=== PATIENT | female | born 1940 | race Caucasian/White ===

== ENCOUNTER → 2016-09-06 | Outpatient (CLI) | payer MEDICARE, OTHER ==
[~2016-09-06] VITALS: Ht 167.6 cm; Wt 58.5 kg
[~2016-09-06] MED LIST: ATOR10TA PO; ATOR10TA66 PO; DILT180C54 PO; DILT180C67 PO; DILT180T PO; ESCI10TA PO; FLUT9.9S NS; HEParin (CENTRAL IV FLUSH) 500 UNIT/5 ML SYR ONE; MONT10TA21 PO
--- OUTSIDE RECORDS SUMMARY | 2016-09-06 09:11 | XMS REPORT | Continuity of Care Document ---
Author Author [facility] Organization [facility] Address Unknown Phone Unavailable Care Team Providers Care Facility Security Officer Name Role Phone Maya Benavides III PCP [phone] Source Comments Some departments are not documenting in the electronic medical record. If you do not see the information that you expected, contact Release of Information in the Health Information Management department at [phone] for further assistance in locating additional records.[facility] Active Allergies and Adverse Reactions Not on File Current Medications Not on file Active Problems Not on file Social History Tobacco Use Types Packs/Day Years Used Date Never Assessed Plan of Care Health Maintenance Due Date Last Done Comments Physical (Comprehensive) 1947 Exam Pertussis Vaccine 1953 Tetanus Vaccine 1959 Colorectal Cancer 1992 Screening Shingles Vaccine 2002 Osteoporosis Screening 2007 Prevnar/Pneumovax (#1) 2007 Influenza Vaccine 04/18/2016 Breast Cancer Screening 02/05/2018 02/06/2016, 07/01/2014, 06/30/2013 Additional history exists Results from Last 3 Months Not on file
[2016-09-06 09:49] VITALS: BP 130/76
--- NOTE | 2016-09-10 14:41 | Physician Query-Final Dx ---
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 ALECIA LAGOS Sep 10, 2016 14:41 REILLY VALERIO DO Sep 17, 2016 21:03
== END ==
LOC: SDC 09:08
PROVIDERS: ATTEND Internal Medicine
DX: C56.1 Malignant neoplasm of right ovary (principal)
CPT/HCPCS: 36415; 36591; 86304

== ENCOUNTER → 2016-10-21 | Outpatient (CLI) | payer MEDICARE, OTHER ==
[~2016-10-21] VITALS: Ht 167.6 cm; Wt 58.5 kg
[~2016-10-21] MED LIST changes: +CATHETER FLUSH 10 ML SYR IV PRN
--- OUTSIDE RECORDS SUMMARY | 2016-10-21 08:58 | XMS REPORT | Continuity of Care Document ---
Author Author [facility] Organization [facility] Address Unknown Phone Unavailable Care Team Providers Care Travel Counselor Name Role Phone Maya Benavides III PCP [phone] Source Comments Some departments are not documenting in the electronic medical record. If you do not see the information that you expected, contact Release of Information in the Health Information Management department at [phone] for further assistance in locating additional records.[facility] Active Allergies and Adverse Reactions Not on [...]
[2016-10-21 11:43] VITALS: BP 107/69
== END ==
LOC: SDC 08:55
PROVIDERS: ATTEND Internal Medicine
DX: C56.1 Malignant neoplasm of right ovary (principal)
CPT/HCPCS: 36415; 36591; 86304

== ENCOUNTER → 2016-12-02 | Outpatient (CLI) | payer MEDICARE, OTHER ==
[~2016-12-02] VITALS: Ht 167.6 cm; Wt 58.5 kg
[~2016-12-02] MED LIST changes: +HEParin (CENTRAL IV FLUSH) 500 UNIT/5 ML SYR IV PRN
[2016-12-02 09:40] VITALS: BP 111/83
== END ==
LOC: SDC 09:13
PROVIDERS: ATTEND Internal Medicine
DX: C56.1 Malignant neoplasm of right ovary (principal)
CPT/HCPCS: 36415; 36591; 86304

== ENCOUNTER → 2017-01-10 | Outpatient (CLI) | payer MEDICARE, OTHER ==
[~2017-01-10] VITALS: Ht 167.6 cm; Wt 58.5 kg
[~2017-01-10] MED LIST changes: -CATHETER FLUSH 10 ML SYR IV PRN; +HEParin (CENTRAL IV FLUSH) 500 UNIT/5 ML SYR IV ONE; -HEParin (CENTRAL IV FLUSH) 500 UNIT/5 ML SYR IV PRN
[2017-01-10 09:20] VITALS: BP 125/82
== END ==
LOC: SDC 08:59
PROVIDERS: ATTEND Internal Medicine
DX: C56.1 Malignant neoplasm of right ovary (principal)
CPT/HCPCS: 36415; 36591; 86304

== ENCOUNTER → 2017-02-21 | Outpatient (CLI) | payer MEDICARE, OTHER ==
[~2017-02-21] VITALS: Ht 167.6 cm; Wt 58.5 kg
[~2017-02-21] MED LIST changes: -HEParin (CENTRAL IV FLUSH) 500 UNIT/5 ML SYR IV ONE
[2017-02-21 08:45] VITALS: BP 124/87
== END ==
LOC: SDC 08:27
PROVIDERS: ATTEND Internal Medicine
DX: C56.1 Malignant neoplasm of right ovary (principal)
CPT/HCPCS: 36415; 36591; 86304

== ENCOUNTER → 2017-04-04 | Outpatient (CLI) | payer MEDICARE, OTHER ==
[~2017-04-04] VITALS: Ht 167.6 cm; Wt 58.5 kg
[2017-04-04 14:29] VITALS: BP 130/71
== END ==
LOC: SDC 13:12
PROVIDERS: ATTEND Internal Medicine
DX: C56.2 Malignant neoplasm of left ovary (principal)
CPT/HCPCS: 36415; 36591; 86304

== ENCOUNTER 2017-05-03 01:14 | Emergency (ER) | payer MEDICARE, OTHER ==
[~2017-05-03] VITALS: Ht 167.6 cm; Wt 59.0 kg
[~2017-05-03 01:14] MED LIST changes: -HEParin (CENTRAL IV FLUSH) 500 UNIT/5 ML SYR ONE
[2017-05-03] MEDS ORDERED: TETANUS,DIPTH,PERTUSS P/F (BOOSTRIX) 0.5 ML VIAL IM ONE (01:30)
[2017-05-03] MEDS ORDERED: LIDOCAINE 1% INJ 20 ML (XYLOCAINE) VIAL INJ ONE (01:30)
--- NOTE | 2017-05-03 01:31 | ED Fall/Injury ---
General Chief Complaint: Trauma-Non Activation Stated Complaint: FELL- LEFT SIDE HEAD INJURY Source: patient, spouse Exam Limitations: no limitations History of Present Illness Time seen by provider: 01:25 Initial Comments Patient presents to ER by private conveyance with chief complaint of getting up until tonight to bathroom and had a fall landing with her head against either a dresser or more on the left mandaeism. There is a gash there that is been dressed and hemostatic per the patient. She is not sure when she had her last tetanus shot. She says she is having no dysuria or confusion. She did vomit immediately after hitting her head. She is not nauseated now. She had a fall earlier today. 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 She's not had any other constitutional symptoms last few days. Allergies and Home Medications Allergies Coded Allergies: No Known Allergies (Verified Allergy, Unknown, 10/21/16) Home Medications Atorvastatin Calcium 10 Mg Tablet, 10 MG PO DAILY, (Reported) Diltiazem HCl 180 Mg Tab.er.24h, 180 MG PO DAILY, (Reported) Escitalopram Oxalate 10 Mg Tablet, 10 MG PO DAILY, (Reported) Fluticasone Propionate 9.9 Ml [place].susp, 2 SPRAYS NS DAILY, (Reported) Montelukast Sodium 10 Mg Tablet, 10 MG PO DAILY, (Reported) Constitutional: No chills, No diaphoresis, No fever, No malaise Eyes: Denies Blindness, Denies Blurred Vision Ears, Nose, Mouth, Throat: denies ear pain, denies ear discharge, denies nose discharge, denies epistaxis Respiratory: No cough, No short of breath Cardiovascular: No chest pain, No palpitations, No syncope Gastrointestinal: No abdominal pain, No constipation, No nausea Genitourinary: No discharge, No dysuria : No Musculoskeletal: No back pain, No joint pain Skin: No pruritus, No rash, other (laceration left forehead/mandaeism) Psychiatric/Neurological: Denies Headache, Denies Numbness, Denies Paresthesia Past Zeugbmc-Nvbwii-Vuljxb Hx Patient Social History Alcohol Use: Denies Use Recreational Drug Use: No Type Used: Cigarettes Recent Foreign Travel: No Contact w/Someone Who Travel: No Recent Hopitalizations: No Seasonal Allergies Seasonal Allergies: No Physical Exam Vital Signs Vital Sign - Last 12Hours 05/03/17 01:19 Temp 98.1 Pulse 60 Resp 16 B/P (MAP) 142/81 Pulse Ox 98 O2 Delivery Room Air Capillary Refill : General Appearance: WD/WN, no apparent distress HEENT: PERRL/EOMI, normal ENT inspection, TMs normal, pharynx normal Neck: non-tender, full range of motion, supple, normal inspection Cardiovascular: normal peripheral pulses, regular rate, rhythm, no edema Respiratory: lungs clear, normal breath sounds Gastrointestinal: non tender, soft Extremities: normal range of motion, normal inspection, normal capillary refill Neurologic/Psychiatric: alert, normal mood/affect, oriented x 3 Jarad Coma Score Best Eye Response: (4) Open Spontaneously Best Verbal Response: (5) Oriented Best Motor Response: (6) Obeys Commands [place] Total: 15 Laceration Repair : Wound Location: Face (left for head) Wound Length (cm): 2 Wound's Depth, Shape: linear, sub Q Wound Explored: clean Irrigated w/ Saline (ccs): 50 Betadine Prep?: Yes (cleaned with chlorhexidine soap water) Anesthesia: 1% Lidocaine Volume Anesthetic (ccs): 3 Wound Debrided: minimal Suture: Ethlion Suture Size: 5-0 Number of Sutures: 5 Progress Patient's wound was lightly cleaned with chlorhexidine soap water then infiltrated are in a ringlike fashion with 1% lidocaine without epinephrine. When the patient was ascertained to be numb and then copious amounts of chlorhexidine soap water were flushed into the wound irrigated and the wound was then doused in Betadine. Wound was then closed with simple interrupted Ethilon 50 sutures 5. The patient tolerated the procedure well. Progress/Results/Core Measures Results/Orders My Orders Orders - PAULO BOSS Ct Head Wo (05/03/17 01:28) Ua Culture If Indicated (05/03/17 01:28) Dipht,Pertuss(Acell),Tet Adult (Boostrix (05/03/17 01:30) Lidocaine 1% Injection (Xylocaine 1% Inj (05/03/17 01:30) Vital Signs/I&O Vital Sign - Last 12Hours 05/03/17 01:19 Temp 98.1 Pulse 60 Resp 16 B/P (MAP) 142/81 Pulse Ox 98 O2 Delivery Room Air Diagnostic Imaging Diagonstic Imaging: CT Plain Films/CT/US/NM/MRI: head Comments No ICH, tumor, mass effect. Fluid in the left maxillary sinus. No evidence of acute infarct, hemorrhage, mass or edema. No acute osseous abnormality. Probable dermal defect overlying left frontal scalp. Reviewed: Reviewed by Me Departure Impression Impression: Primary Impression: Fall from standing Qualified Codes: W19.XXXA - Unspecified fall, initial encounter Additional Impressions: Laceration of forehead Qualified Codes: S01.81XA - Laceration without foreign body of other part of head, initial encounter Hematoma Disposition: HOME, SELF-CARE Condition: Stable Departure-Patient Inst. Decision time for Depature: 03:11 Referrals: REILLY VALERIO DO (PCP/Family) Primary Care Physician Patient Instructions: Laceration Repair With Stitches (DC) Add. Discharge Instructions: Follow-up with your primary care physician or you may return to the ER in 5-7 days to have the wound is examined and stitches removed. ( to friday. ) If you have any discharge from the wound or increasing redness and pain or fevers or nausea a should return for evaluation either in the ER or to your primary care physician. Keep the wound clean with soap and water and apply a small amount of Vaseline over the skin edges to keep them moist. Keep the wound dressed and do not submerge underwater for the first 3-4 days. All discharge instructions reviewed with patient and/or family. Voiced understanding. Scripts Sulfamethoxazole/Trimethoprim (Bactrim Ds Tablet) 1 Each Tablet 1 EACH PO BID for 5 Days, #10 TAB 0 Refills Prov: PAULO BOSS 05/03/17 Copy Copies To 1: REILLY VALERIO TITUS J May 03, 2017 01:31
[2017-05-03] MEDS ORDERED: SULF1TAB35 PO (03:13)
[2017-05-03 03:29] LABS: BILIRUBIN,URINE NEGATIVE (NEGATIVE); KETONES,URINE NEGATIVE (NEGATIVE); LEUKOCYTE ESTERASE ,URINE 3+ (NEGATIVE); NITRITE,URINE NEGATIVE (NEGATIVE); PH,URINE 6.5 (5-9); PROTEIN,URINE NEGATIVE (NEGATIVE); UROBILINOGEN,URINE NORMAL (NORMAL)
[2017-05-03] MEDS ORDERED: CEPHALEXIN 250 MG (KEFLEX) CAP PO ONE (04:15)
[2017-05-03 04:20] VITALS: BP 142/88
--- NOTE | 2017-05-03 06:26 | Diagnostic Imaging Report ---
PROCEDURE: CT head without contrast. TECHNIQUE: Multiple contiguous axial images were obtained through the brain without the use of intravenous contrast. INDICATION: Fall out of bed. Comparison: None available. Findings: No hyperdense hemorrhage or space-occupying mass. No hydrocephalus or midline shift. Symmetric prominence of the ventricles and cortical sulci is compatible with age-appropriate atrophy. No isolated lobar atrophy. No territorial loss of ceballos-white matter differentiation to indicate acute/subacute infarct. Minimal periventricular white matter hypoattenuation is likely due to chronic microvascular ischemic disease. The mastoid air cells are clear. Left maxillary sinus mucosal retention cyst. No focal osseous abnormality of the calvarium. Left frontal scalp laceration. Impression: No acute intracranial process or skull fracture. Dictated by: Dictated on workstation # [id number]
== END 2017-05-03 04:20 | disposition home or self-care (01) ==
LOC: EDUNIT# 01:14 → ER 01:16
DX: Z04.3 Encounter for examination and observation following other accident (principal)
CPT/HCPCS: 70450; 81000; 87088; 90471; 90715; 99284

== ENCOUNTER 2017-05-09 08:01 | Emergency (ER) | payer MEDICARE, OTHER ==
[~2017-05-09] VITALS: Ht 170.2 cm; Wt 61.2 kg
[~2017-05-09 08:01] MED LIST changes: +SULF1TAB35 PO
[2017-05-09 08:18] VITALS: BP 128/76
== END 2017-05-09 08:18 | disposition home or self-care (01) ==
LOC: EDUNIT# 08:01 → ER 08:03
DX: Z48.02 Encounter for removal of sutures (principal)

== ENCOUNTER → 2017-05-16 | Outpatient (CLI) | payer MEDICARE, OTHER ==
[~2017-05-16] VITALS: Ht 170.2 cm; Wt 61.2 kg
[~2017-05-16] MED LIST changes: +HEParin (CENTRAL IV FLUSH) 500 UNIT/5 ML SYR ONE
[2017-05-16 13:55] LABS: MEAN PLATELET VOLUME 9.3 FL (7.4-10.4); RED BLOOD COUNT 4.16 10^6/uL (4.35-5.85); RED CELL DISTRIBUTION WIDTH 14.9 % (10.0-14.5)
[2017-05-16 14:15] LABS: ANION GAP 8 MMOL/L (5-14); BLOOD UREA NITROGEN 16 MG/DL (7-18); BUN/CREATININE RATIO 19; CARBON DIOXIDE 26 MMOL/L (21-32); CHLORIDE 103 MMOL/L (98-107); CREATININE SERUM 0.86 MG/DL (0.60-1.30); SODIUM 137 MMOL/L (135-145)
[2017-05-16 14:16] LABS: ALANINE AMINOTRANSFERASE 18 U/L (0-55); ALBUMIN 3.8 GM/DL (3.2-4.5); ASPARTATE AMINO TRANSFERASE 21 U/L (5-34); BILIRUBIN,TOTAL 0.2 MG/DL (0.1-1.0); CALCIUM 9.2 MG/DL (8.5-10.1); GFR ESTIMATED > 60; GLUCOSE 96 MG/DL (70-105); TOTAL PROTEIN 6.7 GM/DL (6.4-8.2)
[2017-05-16 14:31] VITALS: BP 110/73
[2017-05-16 14:36] LABS: THYROID STIMULATING HORMONE 1.21 UIU/ML (0.35-4.94)
== END ==
LOC: SDC 13:03
PROVIDERS: ATTEND Internal Medicine
DX: R53.83 Other fatigue; C56.2 Malignant neoplasm of left ovary
CPT/HCPCS: 36415; 36591; 80053; 83540; 84439; 84443; 85027; 86304

== ENCOUNTER → 2017-06-05 | Outpatient (CLI) | payer MEDICARE, OTHER ==
[~2017-06-05] VITALS: Ht 170.2 cm; Wt 61.2 kg
[~2017-06-05] MED LIST changes: -HEParin (CENTRAL IV FLUSH) 500 UNIT/5 ML SYR ONE; +LIDOCAINE 1% INJ 20 ML (XYLOCAINE) VIAL INJ ONE
[2017-06-05 09:50] VITALS: BP 118/68
[2017-06-05 11:12] VITALS: BP 112/70
--- NOTE | 2017-06-05 13:57 | Diagnostic Imaging Report ---
EXAMINATION: Ultrasound-guided biopsy of a breast mass. A metallic clip placed to cynthia biopsy site. INDICATION: Left breast mass. CONSENT: Informed consent was obtained from the patient. The risks, benefits, potential complications and alternatives were reviewed and all questions answered to the patient's satisfaction. FINDINGS: Ultrasound images demonstrate a left breast mass at 2:00 zone. PROCEDURE: After sterile preparation and draping, 1% lidocaine was utilized for local anesthesia. A the biopsy needle was introduced under live ultrasound guidance to the level of the lesion. Good needle position was documented with ultrasound images. 14-gauge biopsy needle was utilized and core biopsies were performed. Multiple samples were obtained and sent to pathology. A metallic 2 mm a coil was placed to cynthia the site of the biopsy. A subsequent mammogram is performed and confirms the proper positioning of the clip. The patient tolerated the procedure well with no immediate complications. IMPRESSION: Successful ultrasound-guided core biopsy of 2:00 left breast mass. Dictated by: Dictated on workstation # [id number]
--- NOTE | 2017-06-05 14:31 | Diagnostic Imaging Report ---
EXAMINATION: Bilateral diagnostic mammogram with tomography evaluation. The current study was also evaluated with a Computer Aided Detection (CAD) system. COMPARISON: 02/06/2016. INDICATION: Palpable lump in the upper outer left breast. FINDINGS: The breasts are composed of extremely dense parenchyma which may decrease mammographic sensitivity. There are scattered benign-appearing calcifications. The area of palpable lump is marked and demonstrates nonspecific slightly increased density focal asymmetry in the upper-outer aspect of the left breast. The area, however, is partially obscured with extremely dense background parenchyma and a definitive mass is not seen. The right breast demonstrates no definite change. IMPRESSION: Extremely dense parenchyma. Focal asymmetry with increased density along the upper outer aspect of the left breast at the palpable area is noted without a definitive underlying mass confirmed. An ultrasound evaluation is pending. ACR BI-RADS Category 0: Incomplete. (Needs additional imaging evaluation). Result letter will be mailed to the patient. Note: At least 10% of breast cancer is not imaged by mammography. Dictated by: Dictated on workstation # [id number]
--- NOTE | 2017-06-05 17:06 | Diagnostic Imaging Report ---
EXAMINATION: US-guided core biopsy-axilla. INDICATION: Left axillary lymphadenopathy. Current history and physical and other medical records are reviewed prior to the procedure. CONSENT: Informed consent was obtained from the patient. The risks, benefits, potential complications and alternatives were reviewed and all questions answered to the patient's satisfaction. The patient's vital signs, cardiac rhythm, and pulse oximetry with observed throughout the procedure by qualified nursing personnel. Sedation/medications: none. FINDINGS: Left axillary lymphadenopathy. PROCEDURE: After maximal sterile barrier technique preparation and draping, 1% lidocaine was utilized for local anesthesia. With the patient in supine position, and via anterior approach, a 14-gauge Bard biopsy needle is introduced into the enlarged left axillary lymph node under live ultrasound guidance. After confirming adequate positioning with saved ultrasound images, multiple 14 gauge core biopsy specimens were obtained. The patient tolerated the procedure well with no immediate complications. IMPRESSION: Successful US-guided core biopsy of enlarged right axillary lymph nodes. Dictated by: Dictated on workstation # [id number]
--- NOTE | 2017-06-05 20:40 | Diagnostic Imaging Report ---
EXAMINATION: Bilateral breast ultrasound. INDICATION: Left breast lump. FINDINGS: The four quadrants and retroareolar region of each breast were scanned. In the left breast, there is a mass centered at the 2:00 zone, 8 cm from the nipple, measuring 2.5 x 1.4 x 3.0 cm with a hypoechoic slightly heterogenous and lobulated appearance. There is mild through transmission. There is no shadowing. There is no definitive internal vascularity. Mild increased vascularity around the periphery of the mass is seen. There are also mildly enlarged lymph nodes in the left axilla. The right breast demonstrates no underlying lesion. IMPRESSION: 1. A 3 cm left breast mass at 2:00 zone. 2. Multiple mildly enlarged left axillary lymph nodes. 3. These are suspicious for breast cancer with lymph node spread. Ultrasound-guided biopsy of the breast mass and the enlarged lymph nodes is recommended. The findings and recommendations were discussed with the patient personally at time of dictation. The patient was kept in the department for a subsequent biopsy. ACR BI-RADS Category 4C: Moderate suspicion of malignancy. Result letter will be mailed to the patient. Note: At least 10% of breast cancer is not imaged by mammography. Dictated by: Dictated on workstation # [id number]
--- NOTE | 2017-06-05 20:46 | Diagnostic Imaging Report ---
EXAMINATION: CC and lateral views of the left breast. INDICATION: Confirmation of metallic marker placement after ultrasound-guided biopsy of upper-outer left breast mass. FINDINGS: A 2 mm coil is seen in a breast mass within the upper-outer aspect of the left breast largely obscured by the adjacent extremely dense parenchyma. IMPRESSION: Satisfactory position of marking metallic coil at the site of upper-outer left breast mass. Pathology results are pending. Dictated by: Dictated on workstation # [id number]
== END ==
LOC: RAD 07:59
PROVIDERS: ATTEND Nurse Practitioner
DX: N63.21 Unspecified lump in the left breast, upper outer quadrant (principal); R59.0 Localized enlarged lymph nodes
CPT/HCPCS: 19083; 19084; 76641; 77066

== ENCOUNTER → 2017-08-05 | Outpatient (CLI) | payer MEDICARE, OTHER ==
[~2017-08-05] VITALS: Ht 170.2 cm; Wt 61.2 kg
[~2017-08-05] MED LIST changes: +HEParin (CENTRAL IV FLUSH) 500 UNIT/5 ML SYR IV ONE; -LIDOCAINE 1% INJ 20 ML (XYLOCAINE) VIAL INJ ONE; +NS IV 1000 ML 1,000 ML IV NR; +NS IV 1000 ML 1,000 ML ONE; +ONDANSETRON 4 MG/2 ML (SDV) Z0FRAN ONE
[2017-08-05] MEDS: ONDANSETRON 4 MG/2 ML (SDV) Z0FRAN IV NR ×2 (13:02→13:04)
[2017-08-05 13:11] VITALS: BP 101/64
[2017-08-05 14:32] VITALS: BP 101/64
== END ==
LOC: SDC 12:41
PROVIDERS: ATTEND Internal Medicine Hematology & Oncology
DX: R11.2 Nausea with vomiting, unspecified (principal); Z92.21 Personal history of antineoplastic chemotherapy
CPT/HCPCS: 96360; 96375

== ENCOUNTER → 2017-08-28 | Outpatient (CLI) | payer MEDICARE, OTHER ==
[~2017-08-28] MED LIST changes: -HEParin (CENTRAL IV FLUSH) 500 UNIT/5 ML SYR IV ONE; -NS IV 1000 ML 1,000 ML IV NR; -NS IV 1000 ML 1,000 ML ONE; -ONDANSETRON 4 MG/2 ML (SDV) Z0FRAN ONE
[2017-08-28 10:58] LABS: BASOPHILS # (AUTO) 0.1 10^3/uL (0.0-0.1); BASOPHILS % (AUTO) 3 % (0-10); EOSINOPHILS # (AUTO) 0.1 10^3/uL (0.0-0.3); EOSINOPHILS % (AUTO) 3 % (0-10); HEMATOCRIT 30 % (35-52); HEMOGLOBIN 10.3 G/DL (11.5-16.0); LYMPHOCYTES # (AUTO) 0.9 X 10^3 (1.0-4.0); LYMPHOCYTES % (AUTO) 37 % (12-44); MEAN CORPUSCULAR HEMOGLOBIN 35 PG (25-34); MEAN CORPUSCULAR HGB CONC 34 G/DL (32-36); MEAN CORPUSCULAR VOLUME 100 FL (80-99); MEAN PLATELET VOLUME 10.4 FL (7.4-10.4); MONOCYTES # (AUTO) 0.2 X 10^3 (0.0-1.0); MONOCYTES % (AUTO) 10 % (0-12); NEUTROPHILS # (AUTO) 1.1 X 10^3 (1.8-7.8); NEUTROPHILS % (AUTO) 48 % (42-75); PLATELET COUNT 75 10^3/uL (130-400); RED BLOOD COUNT 2.98 10^6/uL (4.35-5.85); RED CELL DISTRIBUTION WIDTH 17.4 % (10.0-14.5); WHITE BLOOD COUNT 2.4 10^3/uL (4.3-11.0)
[2017-08-28 11:34] LABS: ALANINE AMINOTRANSFERASE 28 U/L (0-55); ALBUMIN 3.6 GM/DL (3.2-4.5); ALKALINE PHOSPHATASE 53 U/L (40-136); BILIRUBIN,TOTAL 0.8 MG/DL (0.1-1.0); BUN/CREATININE RATIO 13; CALCIUM 8.8 MG/DL (8.5-10.1); CARBON DIOXIDE 23 MMOL/L (21-32); CHLORIDE 99 MMOL/L (98-107); CREATININE SERUM 0.71 MG/DL (0.60-1.30); GFR ESTIMATED > 60; GLUCOSE 88 MG/DL (70-105); POTASSIUM 3.7 MMOL/L (3.6-5.0); SODIUM 131 MMOL/L (135-145); TOTAL PROTEIN 6.5 GM/DL (6.4-8.2)
== END ==
LOC: LAB 10:40
PROVIDERS: ATTEND Internal Medicine
DX: J18.9 Pneumonia, unspecified organism (principal); E86.0 Dehydration
CPT/HCPCS: 36415; 80053; 85025; 87804

== ENCOUNTER → 2017-09-04 | Outpatient (CLI) | payer MEDICARE, OTHER ==
--- NOTE | 2017-09-04 15:29 | Diagnostic Imaging Report ---
INDICATION: Right lower extremity edema. TIME OF EXAM: 3:37 PM COMPARISON: Correlation is made with prior study from 01/08/2010. The heart size is stable. Right chest wall port has been placed since prior study. The tip is in the lower SVC. No pneumothorax is seen. Lungs are clear. No effusion is identified. IMPRESSION: No acute cardiopulmonary process is detected. Dictated by: Dictated on workstation # [id number]
--- NOTE | 2017-09-04 15:46 | Diagnostic Imaging Report ---
PROCEDURE: US right lower extremity venous. TECHNIQUE: Multiple real-time grayscale images were obtained over the right lower extremity in various projections. Additional duplex Doppler and color Doppler images were also obtained. DATE: September 04, 2017. INDICATION: 77-year-old female, right lower extremity edema. COMPARISON: None. FINDINGS: The right common femoral vein, right superficial femoral vein, and right popliteal vein are all compressible with normal flow and response to augmentation. The right posterior tibial and peroneal veins are patent. IMPRESSION: Negative for right lower extremity deep venous thrombosis. Dictated by: Dictated on workstation # [id number]
== END ==
LOC: RAD 14:58
PROVIDERS: ATTEND Internal Medicine
DX: R60.0 Localized edema (principal)
CPT/HCPCS: 71046

== ENCOUNTER 2017-09-22 09:26 | Outpatient (RCR) | payer MEDICARE, OTHER ==
[2017-08-26 09:30] VITALS: BP 124/81
[2017-08-27 09:45] VITALS: BP 127/79
[~2017-09-22] VITALS: Ht 170.2 cm; Wt 61.2 kg
[~2017-09-22 09:26] MED LIST changes: +NS IV 1000 ML 1,000 ML IV SCH; +NS IV 1000 ML 1,000 ML ONE; +ONDANSETRON 4 MG/2 ML (SDV) Z0FRAN IV NR; +ONDANSETRON 4 MG/2 ML (SDV) Z0FRAN IVP ONE; +ONDANSETRON 4 MG/2 ML (SDV) Z0FRAN ONE
[2017-09-22] MEDS ORDERED: NS IV 1000 ML 1,000 ML ONE (10:10)
[2017-09-22] MEDS ORDERED: ONDANSETRON 4 MG/2 ML (SDV) Z0FRAN ONE (10:24)
== END 2017-09-22 11:15 | disposition home or self-care (01) ==
LOC: SDC 09:26
PROVIDERS: ATTEND Physician Assistant
DX: R11.2 Nausea with vomiting, unspecified (principal); T45.1X5A Adverse effect of antineoplastic and immunosuppressive drugs, initial encounter
CPT/HCPCS: 96360; 96375

== ENCOUNTER 2017-09-22 09:30 | Outpatient (CLI) | payer MEDICARE, OTHER ==
[~2017-09-22 09:30] MED LIST changes: -NS IV 1000 ML 1,000 ML IV SCH; -NS IV 1000 ML 1,000 ML ONE; -ONDANSETRON 4 MG/2 ML (SDV) Z0FRAN IV NR; -ONDANSETRON 4 MG/2 ML (SDV) Z0FRAN IVP ONE; -ONDANSETRON 4 MG/2 ML (SDV) Z0FRAN ONE
[2017-09-22 09:55] LABS: BILIRUBIN,URINE NEGATIVE (NEGATIVE); CLARITY,URINE VERY CLOUDY; COLOR,URINE YELLOW; GLUCOSE, URINE (UA) NEGATIVE (NEGATIVE); KETONES,URINE NEGATIVE (NEGATIVE); LEUKOCYTE ESTERASE ,URINE 3+ (NEGATIVE); NITRITE,URINE NEGATIVE (NEGATIVE); PH,URINE 6 (5-9); PROTEIN,URINE 2+ (NEGATIVE); UROBILINOGEN,URINE NORMAL (NORMAL)
[2017-09-22 10:14] LABS: BACTERIA,URINE LARGE /HPF; WBC,URINE TNTC /HPF
== END 2017-09-22 13:33 ==
LOC: SDC 09:30
PROVIDERS: ATTEND Internal Medicine Hematology & Oncology
DX: R30.0 Dysuria (principal)
CPT/HCPCS: 81000; 87088; 87186

== ENCOUNTER 2017-09-26 11:15 | Outpatient (RCR) | payer MEDICARE, OTHER ==
[2017-07-14 09:00] VITALS: BP 120/78
[2017-07-14] MEDS: PEGFILGRASTIM 6 MG/0.6ML (NEULASTA) SDC SC SCH (09:28)
[2017-08-04] MEDS: PEGFILGRASTIM 6 MG/0.6ML (NEULASTA) SDC SC SCH (11:03)
[2017-08-04 11:10] VITALS: BP 120/76
[2017-08-25 10:30] VITALS: BP 100/61
[2017-08-25] MEDS: PEGFILGRASTIM 6 MG/0.6ML (NEULASTA) SDC SC SCH (10:44)
[2017-09-22] MEDS: PEGFILGRASTIM 6 MG/0.6ML (NEULASTA) SDC SC SCH (10:10)
[2017-09-22] MEDS: NS IV 1000 ML 1,000 ML IV NR (10:25)
[2017-09-22 11:53] VITALS: BP 125/77
[~2017-09-26] VITALS: Ht 170.2 cm; Wt 61.2 kg
[~2017-09-26 11:15] MED LIST changes: +HEParin (CENTRAL IV FLUSH) 500 UNIT/5 ML SYR IV PRN; +HEParin (CENTRAL IV FLUSH) 500 UNIT/5 ML SYR ONE; +NS IV 1000 ML 1,000 ML ONE; +ONDANSETRON 4 MG/2 ML (SDV) Z0FRAN IV PRN; +ONDANSETRON 4 MG/2 ML (SDV) Z0FRAN ONE; +PEGFILGRASTIM 6 MG/0.6ML (NEULASTA) SDC SC SCH
[2017-09-26] MEDS: NS IV 1000 ML 1,000 ML IV NR (11:35)
[2017-09-26] MEDS ORDERED: ONDANSETRON 4 MG/2 ML (SDV) Z0FRAN IV NR (11:36)
[2017-09-26] MEDS ORDERED: NS IV 1000 ML 1,000 ML IV SCH (11:45)
[2017-09-26 14:10] VITALS: BP 128/71
== END 2017-10-12 | disposition home or self-care (01) ==
LOC: SDC 11:15
PROVIDERS: ATTEND Physician Assistant
DX: Z76.89 Persons encountering health services in other specified circumstances (principal)
CPT/HCPCS: 96360; 96361; 96365; 96372; 96374

== ENCOUNTER → 2017-10-29 | Outpatient (CLI) | payer MEDICARE, OTHER ==
[~2017-10-29] MED LIST changes: -HEParin (CENTRAL IV FLUSH) 500 UNIT/5 ML SYR IV PRN; -HEParin (CENTRAL IV FLUSH) 500 UNIT/5 ML SYR ONE; -NS IV 1000 ML 1,000 ML ONE; -ONDANSETRON 4 MG/2 ML (SDV) Z0FRAN IV PRN; -ONDANSETRON 4 MG/2 ML (SDV) Z0FRAN ONE; -PEGFILGRASTIM 6 MG/0.6ML (NEULASTA) SDC SC SCH
== END ==
LOC: CARD 08:59
PROVIDERS: ATTEND Internal Medicine Hematology & Oncology
DX: C50.112 Malignant neoplasm of central portion of left female breast (principal); Z17.1 Estrogen receptor negative status [ER-]; I35.1 Nonrheumatic aortic (valve) insufficiency
CPT/HCPCS: 93306

== ENCOUNTER 2018-01-10 11:28 | Emergency (ER) | payer MEDICARE, OTHER ==
[~2018-01-10] VITALS: Ht 170.2 cm; Wt 61.2 kg
--- OUTSIDE RECORDS SUMMARY | 2018-01-10 11:35 | XMS REPORT | Encounter Summary ---
Author Author [facility] Organization [facility] Address Unknown Phone Unavailable Care Team Providers Care Pulper Name Role Phone Doctor, Miscellaneous Unavailable Unavailable Mitch Benavides MD PCP Reason for Visit * Reason Comments Heme/Onc Care * Treatment (Routine) Status Reason Specialty Diagnoses / Referred By Referred To Procedures Contact Contact Authorized Hematology and Diagnoses Nitin Pepper Marc S, Oncology Malignant [place] [address] central portion [place], [place] of left breast [id number] in female, Phone: Phone: estrogen [phone] receptor Fax: negative (HCC) [phone] P rocedures DOXORUBICIN + CYCLOPHOSPHAMIDE Encounter Details Date Type Department Care Team Description 01/02/2018 [facility] Nitin Pepper [place] [address] [place] [address] [phone] [place] [address] Social History Tobacco Use Types Packs/Day Years Used Date Former Smoker Cigarettes 0.25 5 06/13/1966 - 09/02/1969 Smokeless Tobacco: Never Used Alcohol Use Drinks/Week oz/Week Comments No Sex Assigned at Date Recorded Not on file as of this encounter Functional Status Functional Status Response Date of Assessment Does the patient have a hearing impairment: No 12/19/2017 Does the patient have a visual impairment: Yes 12/19/2017 Does the patient have impaired ambulation: No 12/19/2017 Does the patient have an activity of daily living No 12/19/2017 (ADL) impairment: Does the patient have an instrumental activity of No 12/19/2017 daily living (IADL) impairment: Cognitive Status Response Date of Assessment Does the patient have a cognitive impairment: No 12/19/2017 as of this encounter Discharge Instructions * Patient Instructions - Bindu Daley RN - 01/02/2018 3:25 PM CDT Call Immediately to report the following: Uncontrolled nausea and/or vomiting, uncontrolled pain, or unusual bleeding. Temperature of 100.4 F or greater and/or any sign/symptom of infection (redness , warmth, tenderness) Painful mouth or difficulty swallowing Red, cracked, or painful hands and/or feet Diarrhea Swelling of arms or legs Rash Important Phone Numbers: Cancer Center Main Number (answered 24 hours a day) [phone] Cancer Center Scheduling (appointments) [phone] OR [phone] [facility] (for nutritional supplements) [phone] Port Maintenance - If you have a port, it should be flushed every 6-8 weeks when not in use. Please check with your MD, nurse, or the warehouse incentive selector. in this encounter Medications at Time of Discharge Medication Sig. Disp. Refills Start Date End Date 0.9 % SODIUM CHLORIDE Administer 1,000 mL 1000 mL 24 11/10/2017 (SODIUM CHLORIDE 0.9% through vein three times (NS)) 0.9 % infusion weekly. As needed for nausea, vomiting, or dehydration. atorvastatin (LIPITOR) 10 Take 10 mg by mouth at mg tablet bedtime daily. bimatoprost(+) (LUMIGAN) Apply 1 drop to right eye 0.03 % ophthalmic as directed at bedtime solution daily. brimonidine(+) (ALPHAGAN Apply 1 drop to right eye P) 0.1 % ophthalmic as directed twice daily. solution brinzolamide(+) (AZOPT) 1 Apply 1 drop to right eye % ophthalmic suspension as directed twice daily. carteolol(+) (OCUPRESS) 1 Apply 1 drop to right eye % ophthalmic solution as directed twice daily. dexamethasone (DECADRON) Take 2 tablets by mouth 24 tablet 0 2017 4 mg tabletIndications: daily. On Days 2-4 of Malignant neoplasm of each cycle. central portion of left breast in female, estrogen receptor negative (HCC) diltiazem CD (CARDIZEM Take 180 mg by mouth CD) 180 mg capsule daily. escitalopram oxalate Take 20 mg by mouth at (LEXAPRO) 10 mg tablet bedtime daily. lidocaine/prilocaine Apply to port site 30-45 30 g 0 06/20/2017 (EMLA) 2.5/2.5 % topical minutes prior to port cream access LORazepam (ATIVAN) 0.5 mg Take 1 tablet by mouth 60 tablet 2 2017 tablet every 12 hours as needed for Nausea. MESALAMINE (CANASA RE) Insert or Apply to rectal area as directed three times weekly. Ondansetron HCl (PF) 4 Inject 8 mg to area(s) as 1 Syringe 24 2017 mg/2 mL syrgIndications: directed three times CANCER weekly. As needed for CHEMOTHERAPY-INDUCED excessive nausea or NAUSEA AND VOMITING vomiting oxyCODONE/acetaminophen Take 1-2 tablets by mouth 40 tablet 0 2017 (ENDOCET) 5/325 mg tablet every 4 hours as needed for Pain Earliest Fill Date: 10/15/[address] TAKE ONE TABLET BY MOUTH 90 tablet 3 12/04/2017 (PROTONIX) 40 mg tablet ONCE DAILY pegfilgrastim (NEULASTA) Inject 0.6 mL under the 0.6 mL 4 11/10/2017 6 mg/0.6 mL skin as directed. Every 2 syringeIndications: weeks x 4 doses with PREVENTION OF NEUTROPENIA first dose on 11/10/17 FROM CANCER CHEMOTHERAPY prochlorperazine maleate Take 1 tablet by mouth 30 tablet 3 2016 (COMPAZINE) 10 mg tablet every 6 hours as needed for Nausea or Vomiting. ranitidine HCl (ZANTAC Take by mouth as Needed. PO) senna/docusate Take 1 tablet by mouth 30 tablet 1 10/15/2017 (SENOKOT-S) 8.6/50 mg twice daily. While taking tablet narcotic pain medication as of this encounter Progress Notes * Bindu Daley, RN - 01/02/2018 3:23 PM CDT Cycle 4, Day 1 AC Patient seen for follow up with Dr. Pepper. OK to treat, labs OK to treat. Port accessed per protocol, brisk blood return. Tolerated IVP Burke with blood aspirated per protocol and infusion well. Port de-accessed per protocol, heparinized. Discharged in stable condition. CHEMO NOTE Verified chemo consent signed and in chart. Verified initiate chemo order in O2 Blood return positive via: Port (Single and Accessed) BSA and dose double checked (agree with orders as written) with: yes Labs/applicable tests checked: CBC and Comprehensive Metabolic Panel (CMP) Chemo regime: Drug/cycle/day AC C4 D1 Rate verified and armband double checkwith second RN: yes Patient education offered and stated understanding. Denies questions at this time. in this encounter Miscellaneous Notes * Addendum Note - Cony Mauro - 01/02/2018 11:59 PM CDT Encounter addended by: Cony Mauro on: 01/08/2018 5:44 PM
Actions taken: Charge Capture section accepted in this encounter Plan of Treatment Not on fileas of this encounter Visit Diagnoses Diagnosis Malignant neoplasm of central portion of left breast in female, estrogen receptor negative (HCC) Administered Medications Medication Order MAR Action Action Date Dose Rate Site cyclophosphamide (CYTOXAN) 960 mg in Given - New 01/02/2018 960 mg 596 mL/hr sodium chloride 0.9% (NS) 298 mL IVPB Bag 13:30 CDT 960 mg (rounded from 972 cy=730 mg/m2 1.62 m2 Treatment plan recorded BSA), Intravenous, 298 mL, Administer over 0.5 Hours, ONCE, 1 dose, Fri01/02/18 at 1245, NURSING: To be administered by Chemotherapy Competency-validated nurse. NOTE: This is a HIGH ALERT Medication. SPECIAL TUBING REQUIRED dexamethasone (DECADRON) tablet 12 mg Given 01/02/2018 12 mg 12 mg, Oral, ONCE, 1 dose, Fri01/02/18 12:21 CDT at 1215 DOXOrubicin (ADRIAMYCIN) injection 97.2 Given 01/02/2018 97.2 mg mg 13:18 CDT 97.2 mg (60 mg/m2 1.62 m2 Treatment plan recorded BSA), Intravenous, ONCE, 1 dose, Fri01/02/18 at 1245, Give IV Push over 3-5 minutes. PROTECT FROM LIGHT NURSING: To be administered by Chemotherapy Competency-validated nurse. NOTE: This is a HIGH ALERT Medication. SPECIAL TUBING REQUIRED fosaprepitant (EMEND) 150 mg in sodium Given - New 01/02/2018 150 mg 450 mL/hr chloride 0.9% (NS) 150 mL IVPB Bag 12:25 CDT 150 mg, Intravenous, 150 mL, Administer over 20 Minutes, ONCE, 1 dose, Fri01/02/18 at 1215 heparin lock flush PF syringe 500 Units Given 01/02/2018 500 Units 500 Units, Intra-catheter, ONCE, 1 dose, 14:05 CDT Fri01/02/18 at 1530, NOTE: This is a HIGH ALERT Medication. palonosetron(+) (ALOXI) injection 0.25 Given 01/02/2018 0.25 mg mg 12:21 CDT 0.25 mg, Intravenous, ONCE, 1 dose, Fri01/02/18 at 1215 in this encounter
--- OUTSIDE RECORDS SUMMARY | 2018-01-10 11:35 | XMS REPORT | Encounter Summary ---
Author Author [facility] Organization [facility] Address Unknown Phone Unavailable Care Team Providers Care Deliverer Outside Name Role Phone Doctor, Miscellaneous Unavailable Unavailable Mitch Benavides MD PCP Reason for Visit * Reason Comments Results Encounter Details Date Type Department Care Team Description 01/09/2018 Telephone [facility] Kaye Watson RN Results [facility] - [facility] Exam [id number] [address] Social History Tobacco Use Types Packs/Day [...] impairment: No 12/19/2017 as of this encounter Miscellaneous Notes * Telephone Encounter - Kaye Watson RN - 01/09/2018 3:35 PM CDT Called to let patient know that her Ca125 was 9. She was grateful for the call. DId report feeling a little weaker than normal and wondering if it could be due to her hemoglobin. Informed her that it certainly could be and she is not low enough to need a blood transfusion but she should try to push fluids. She denies any other questions or concerns. in this encounter Plan of Treatment Not on fileas of this encounter Visit Diagnoses Not on filein this encounter
--- OUTSIDE RECORDS SUMMARY | 2018-01-10 11:35 | XMS REPORT | Clinical Summary ---
Author Author [facility] Organization [facility] Address Unknown Phone Unavailable Care Team Providers Care Element Burner Name Role Phone Doctor, Miscellaneous Unavailable Unavailable Mitch Benavides MD PCP Source Comments Some departments are not documenting in the electronic medical record. If you do not see the information that you expected, contact Release of Information in the Health Information Management department at [phone] for further assistance in locating additional records.[facility] Allergies Active Allergy Reactions Severity Noted Date Comments Diphenhydramine-Zinc SEE COMMENTS Low 06/13/2017 Pt states makes her Acetate restless Current Medications Prescription Sig. Disp. Refills Start End Date Status Date atorvastatin (LIPITOR) 10 Take 10 mg by mouth at Active mg tablet bedtime daily. escitalopram oxalate Take 20 mg by mouth at Active (LEXAPRO) 10 mg tablet bedtime daily. diltiazem CD (CARDIZEM Take 180 mg by mouth Active CD) 180 mg capsule daily. MESALAMINE (CANASA RE) Insert or Apply to Active rectal area as directed three times weekly. prochlorperazine maleate Take 1 tablet by mouth 30 tablet 3 06/18/20 Active (COMPAZINE) 10 mg tablet every 6 hours as needed 17 for Nausea or Vomiting. lidocaine/prilocaine Apply to port site 30-45 30 g 0 06/20/20 Active (EMLA) 2.5/2.5 % topical minutes prior to port 17 cream access oxyCODONE/acetaminophen Take 1-2 tablets by mouth 40 tablet 0 Active (ENDOCET) 5/325 mg tablet every 4 hours as needed 18 for Pain Earliest Fill Date: 10/15/17 senna/docusate Take 1 tablet by mouth 30 tablet 1 10/15/19 Active (SENOKOT-S) 8.6/50 mg twice daily. While taking 18 tablet narcotic pain medication bimatoprost(+) (LUMIGAN) Apply 1 drop to right eye Active 0.03 % ophthalmic as directed at bedtime solution daily. carteolol(+) (OCUPRESS) 1 Apply 1 drop to right eye Active % ophthalmic solution as directed twice daily. brimonidine(+) (ALPHAGAN Apply 1 drop to right eye Active P) 0.1 % ophthalmic as directed twice daily. solution brinzolamide(+) (AZOPT) 1 Apply 1 drop to right eye Active % ophthalmic suspension as directed twice daily. dexamethasone (DECADRON) Take 2 tablets by mouth 24 tablet 0 10/31/19 Active 4 mg tabletIndications: daily. On Days 2-4 of 18 Malignant neoplasm of each cycle. central portion of left breast in female, estrogen receptor negative (HCC) 0.9 % SODIUM CHLORIDE Administer 1,000 mL 1000 mL 24 11/11/19 Active (SODIUM CHLORIDE 0.9% through vein three times 18 (NS)) 0.9 % infusion weekly. As needed for nausea, vomiting, or dehydration. Ondansetron HCl (PF) 4 Inject 8 mg to area(s) as 1 Syringe 24 Active mg/2 mL syrgIndications: directed three times 18 CANCER weekly. As needed for CHEMOTHERAPY-INDUCED excessive nausea or NAUSEA AND VOMITING vomiting pegfilgrastim (NEULASTA) Inject 0.6 mL under the 0.6 mL 4 11/11/19 Active 6 mg/0.6 mL skin as directed. Every 2 18 syringeIndications: weeks x 4 doses with PREVENTION OF NEUTROPENIA first dose on 11/10/17 FROM CANCER CHEMOTHERAPY LORazepam (ATIVAN) 0.5 mg Take 1 tablet by mouth 60 tablet 2 11/15/19 Active tablet every 12 hours as needed [address] TAKE ONE TABLET BY MOUTH 90 tablet 3 12/05/19 Active (PROTONIX) 40 mg tablet ONCE DAILY 18 ranitidine HCl (ZANTAC Take by mouth as Needed. Active PO) Active Problems Problem Noted Date Breast cancer (HCC) 10/14/2017 Malignant neoplasm of central portion of left breast in female, estrogen receptor negative (HCC) Overview: Impression: 1. 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 Skin extension of disease 3. 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 Recent pneumonia with persistent cough 5. Grade 1 fatigue 6. Grade 1 nausea 7. Grade 1 peripheral neuropathy 8. Negative Myriad my Risk panel testing 9. Ulcerative colitis, currently not on immunosuppressive therapy 10. Ankylosing spondylitis, currently not on immunosuppressive therapy 11. Hypertension 12. GERD 13. Anxiety on Lexapro 14. ECOG PS 1 Plan: 1. Counts are doing quite well and she is stable for therapy again today. We will plan on completing her adjuvant through chemotherapy today. 2. Continue ddAC with C4D1=01/02/2018 3. Neulasta day 4=01/05/2018. She will receive Neulasta locally in [place]. 4. She will get labs weekly on back in [place]. 5. Aloxi and Emend day 1. Nausea was well controlled. 6. She does have a clear indication for PMRT. She is due to meet with Dr. Aggarwal for discussion of risks and benefits of adjuvant radiation therapy. 7. Given her concurrent history of ovarian cancer, she will not qualify for the adjuvant pembrolizumab trial. Adjuvant Xeloda can be considered based on CREATEX data. We discussed these data today and she is marginally interested. We will address this again when I next see her. 8. Continue BID PPI. Her nausea seems most likely from reflux. 9. She will continue to get weekly labs locally 10. RTC with me in 3 weeks, or sooner should new or concerning symptoms develop. I have discussed the diagnosis and treatment plan with the patient and she expresses understanding and wishes to proceed Malignant neoplasm of central portion of left breast in female, estrogen receptor negative (HCC) Overview: DIAGNOSIS: 1. Left grade 3 IDC (ER 1%, MS 0%, HER2 2+ equivocal, FISH negative, Ki 67 75%) at 2:00 with known positive left axillary lymph node, dx 05/2017 2. Hx of ovarian cancer, dx 2014 3. Myriad panel testing negative, 07/2015 (patient declined updating her testing at time of breast cancer diagnosis) HISTORY: Ms. Dominguez is a female who presented to the [facility] on 06/16/2017 at age 76 for newly diagnosed breast cancer. She reported finding a left breast lump in mid-May 2017. A diagnostic bilateral mammogram and bilateral breast ultrasound was performed as initial evaluation of breast lump on 06/05/2017. She then underwent an US-guided left breast needle biopsy on that same day that revealed infiltrating mammary carcinoma, ductal type, with a left axillary lymph node positive for metastatic adenocarcinoma consistent with breast primary. Ms. Dominguez reported that her left nipple was inverted but that it had been that way for years. She denied breast pain, skin changes, or nipple discharge to either breast. Denied a history of any breast problems, biopsies, or breast surgeries. Breast MRI 06/18/17 showed the known cancer to measure 4.7 cm, with tiny enhancing satellite masses noted along the anterior and medial margins and the total area measuring 6.2 cm and extended to within about 5 cm FTN. Multiple abnormal left level 1 and 2 lymph nodes were also seen, the largest measuring 1.8 cm. No internal adenopathy and no findings in the right breast. She started neoadjuvant Taxotere/Carboplatin on 06/20/17. Breast MRI prior to her last cycle of chemotherapy showed the enhancing mass in the left breast to have decreased in size from 6.2 cm to 3.4 cm. However, the area of malignancy was replaced by clumped NME extending anteriorly and posteriorly from the mass, extending over an area of 9.2 cm. There was also new asymmetric diffuse skin thickening on the left, with diffuse enhancement. There was a decrease in the left axillary adenopathy. Ms. Dominguez returned to clinic for her pre-op visit and on exam, she had skin changes of the skin overlying her known cancer. A left breast skin biopsy 09/29/17 revealed Intravascular carcinoma (ER0%, PR0%, Her2 2+, Ki-67 87%). Comment: These findings would be compatible with inflammatory metastatic breast carcinoma. Predictive and prognostic immunomarkers will be obtained and reported separately. She underwent a left mastectomy/ALND on 10/14/17. Surgical pathology showed grade 3, IDC. Thre was a 6.6 x 4.5 cm tumor bed with 6.6 x 4.5 cm residual invasive tumor; overall residual cellularity of the tumor bed was 20%. There were 14/16 positive ALNs. BREAST IMAGING: Mammogram: ---Diagnostic bilateral mammogram 06/05/17 ([facility]) showed the breasts were composed of extremely dense parenchyma which may decrease mammographic sensitivity. There were scattered benign appearing calcifications. The area of palpable lump was marked and demonstrated nonspecific slightly increased density focal asymmetry in the upper-outer aspect of the left breast. The area however was partially obscured with extremely dense background parenchyma and a definitive mass was not seen. The right breast demonstrated no definite change. BI-RADS 0. ---Left diagnostic mammogram 06/05/17 ([facility]) showed a 2 mm coil was seen in the breast mass within the upper-outer aspect of the left breast largely obscured by the adjacent extremely dense parenchyma. ---Left diagnostic mammogram 06/16/17 ([facility]) within the superior lateral left breast, there was an irregular mass with obscured margins containing biopsy marker. There were pleomorphic calcifications associated with the mass area measured 3 cm maximum diameter. Ultrasound: ---Ultrasound bilateral breast 06/05/17 ([facility]) showed in the left breast, there was a mass centered at the 2:00 zone, 8 cm FTN, measured 2.5 x 1.4 x 3.0 cm with a hypoechoic slightly heterogeneous and lobulated appearance. There was mild through transmission. There was no shadowing. There was no definitive internal vascularity. Mild increased vascularity around the periphery of the mass was seen. There was also mildly enlarged lymph nodes in the left axilla. The right breast demonstrated no underlying lesion. BI-RADS 4C. ---Left targeted breast ultrasound 06/16/17 ([facility]) demonstrated the irregular mass at 2:00 8 cm from the nipple measuring 3.2 cm maximum diameter containing biopsy marker. 11 abnormal axillary lymph nodes are present at level 1 and level 2. No abnormal level 3 lymph nodes were identified. Imaging of the parasternal region demonstrated a small 5 mm internal mammary lymph node which was hypoechoic. MRI: --MRI bilateral breasts 06/18/17 ([facility]) showed in the Right Breast: no evidence of abnormal enhancement, mass, or axillary/internal mammary adenopathy. In the Left Breast: an irregular heterogeneously enhancing mass at 1-2 o'clock in the left breast, posterior depth, measuring 4.7 cm AP by 2.8 cm transverse by 3.8 cm craniocaudal, consistent with the biopsy-proven malignancy. There were scattered tiny enhancing satellite masses along the anterior and medial margin of the mass, most suggestive of additional foci of malignancy. The entire area including the dominant mass and the satellite lesions measured 6.2 cm AP by 3.7 cm transverse, and extended to within approximately 5 cm of the nipple. There were multiple morphologically abnormal left level 1 and 2 lymph nodes, the largest left lymph node measured 1.8 cm in diameter. There was one morphologically abnormal left level 3 lymph node measuring up to 1.3 cm. No internal mammary adenopathy. Ancillary findings: Right-sided chest port was in place. -- Breast MRI 09/19/17 (): Findings- Background enhancement: Minimal Tissue density- extremely dense. Right Breast: There is no evidence of abnormal mass or nonmass enhancement or axillary/internal mammary adenopathy. Left Breast: The enhancing mass at 1:00 to 2:00 in the left breast is decreased in size with decreased volume of enhancement, now measuring 3.4 cm AP by 1.8 cm transverse by 2.8 cm craniocaudal, previously 6.2 x 3.7 x 3.8 cm. This suggests partial response to treatment. However, this area of malignancy is now replaced by clumped nonmass enhancement in the left upper outer quadrant extending anteriorly and posteriorly from the mass, extending over an area of 9.2 cm AP by 2.5 cm transverse by 6.2 cm craniocaudal. This could represent tumor heterogeneity, and MR biopsy could be performed for further evaluation if clinically indicated. There is also new asymmetric diffuse skin thickening on the left, with diffuse skin enhancement, which can be seen with dermal lymphatic invasion in a patient who has not had prior radiation therapy. Skin punch biopsy is could be performed if clinically indicated, unless patient has clinically evident cellulitis to explain skin thickening and enhancement. There has been a significant decrease in the left axillary adenopathy, with a digital sales representative lymph node measuring 0.8 x 0.7 cm, previously 1.3 x 1 cm. No internal mammary adenopathy. Ancillary findings: None. Impression: 1. Decrease in volume of previously identified mass consistent with the known invasive ductal carcinoma, and decreased left axillary lymphadenopathy as described in findings. 2.Extensive nonmass enhancement in the left upper outer quadrant surrounding the previously identified mass and extending anterior and posterior to the mass, extending over an area of 9.2 x 2.5 x 6.2 cm. This could represent tumor heterogeneity, and MR biopsy could be performed for further evaluation if clinically indicated. 3.New asymmetric left breast skin thickening and enhancement, which can be seen with dermal lymphatic invasion. Skin punch biopsy could be performed if clinically indicated, unless there is clinically evident cellulitis or other reason to explain skin thickening. BIRAD6-Known biopsy proven malignancy RECOMMENDATION: Treatment plan. Other imaging: --PET scan 06/18/17 ([facility]) showed hypermetabolic left breast nodule consistent with biopsy-proven invasive ductal carcinoma. Hypermetabolic left axillary and subpectoral lymphadenopathy consistent with florentino metastatic disease. REPRODUCTIVE HEALTH: Age at first Menarche: 15 Age at First Live : 25 Age at Menopause: 51 : 2 Para: 2 : No Oral control: Yes, 28 years Infertility medication: No Hormone replacement therapy: Yes, 4-6 years PROCEDURE: 1. BRANDEE/BSO along with omentectomy and surgical debulking, 06/2015 (Dr. Estrada) PERTINENT PMH: 2014 Ovarian Cancer (poorly differentiated carcinoma, favor clear cell carcinoma), s/p surgery and chemotherapy (DD carboplatin and paclitaxel x 6 cycles completed November 2015) FAMILY HISTORY: Mother- Breast cancer Sister- Breast cancer Maternal Grandmother- Colon cancer Maternal Uncle- colon cancer Patient denies a family history of ovarian or prostate cancers. PHYSICAL EXAM on PRESENTATION: Right Breast: No palpable breast masses. No skin, nipple, or areolar change. No axillary, supraclavicular, or infraclavicular lymphadenopathy. Left breast: Edematous dependent breast tissue. 2 cm x 3 cm palpable mass at 2:00 8 cm FTN. Skin Erythema: Yes. Left florentino basin: Axillary: positive palpable lymphadenopathy with a dominant 1 cm palpable mobile mass. MEDICAL ONCOLOGY: Dr. Nitin Ramos PRESENT THERAPY: Neoadjuvant Taxotere/Carboplatin (06/20/17- present, scheduled to complete therapy 10/06/17) REFERRED BY: Self referral; PCP is Dr. Mitch Benavides; Dr. Alondra Doan is her Gynecologic Oncologist at [facility] Last Assessment & Plan: Impression: 1. 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 Stage IC (T1c N0 M0) high-grade adenocarcinoma of the left ovary status post resection and 6 cycles of dose dense carboplatin and paclitaxel completed November 2015 3. Grade 1-2 peripheral neuropathy 4. Negative Myriad my Risk panel testing 5. Ulcerative colitis, currently not on immunosuppressive therapy 6. Ankylosing spondylitis, currently not on immunosuppressive therapy 7. Hypertension 8. GERD 9. Anxiety on Lexapro 10. ECOG PS 0 Plan: 1. I had a lengthy and detailed discussion with Callie and her today regarding her current situation. In summary, she has an aggressive node-positive triple negative breast cancer with several separate clearly palpable left axillary nodes, including a couple that are matted together. I believe that her clinical staging would be most accurately determined this T2N2. 2. We had a detailed discussion regarding the role of systemic treatment in the management of breast cancer. Discussed the concept of micrometastatic disease and the fact that we can augment the chances the patient is cured by initiation of systemic therapy. In her particular situation, with a negative estrogen receptor and HER-2 receptor testing, there is no clear role for any targeted or endocrine therapy. As a consequence, we are left with chemotherapy, surgery, and radiation treatments as the likely modalities of therapy. 3. I discussed with her the rationale for neoadjuvant therapy in the treatment of triple negative breast cancer. Unfortunately, given her recent history of ovarian cancer, she will not qualify for any of our clinical trials right now. 4. Given her persistent peripheral neuropathy after adjuvant Taxol for her ovarian cancer, I would recommend that we proceed with carboplatin AUC=6 and Taxotere 75 mg/m. In multiple studies performed here at the [facility], where we developed this regimen, pathological complete response rates have been in the 55-60% range in patients who have a pathological complete response have a similarly excellent prognosis compared to patients treated alternative regimens. If she has an inadequate response to this treatment or has persistent disease after surgery, we would contemplate giving her AC. I do not think that she would tolerate additional Taxol given elevated neuropathy risk. 5. Given her history of ovarian cancer, I recommend we check a CA 125 and a PET scan which will serve to stage both the breast and ovarian cancers. I have let her know that if there are any significant anomalies on her PET scan that are not already biopsied, which she would require tissue biopsy in order to establish definitive diagnosis. 6. We will check baseline labs today. 7. She is due for repeat breast imaging and to meet with Dr. Geiger on Friday. An MRI may be considered. 8. Assuming we can coordinate all of her studies, she already has a port in place and we could plan on starting treatment with L3O2=8506/20/2017. 9. Dexamethasone 8 mg days -1 and 2, 12 mg day 1. 10. Neulasta day 4=06/23/2017 11. We will arrange for a chemotherapy teaching visit next week. 12. Return to clinic with [facility] cycle 1 day 8, with me for cycle 2 day 1, or sooner should new or concerning symptoms develop. I have discussed the diagnosis and treatment plan with the patient and she expresses understanding and wishes to proceed. Ovarian cancer on left (HCC) 06/11/2017 Encounters Date Type Specialty Care Team Description 01/09/2018 Telephone Kaye Clements RN Results 01/09/2018 Orders Only Kaye Clements RN Malignant neoplasm of central portion of left breast in female, estrogen receptor negative (HCC); Ovarian cancer on left (HCC) 01/08/2018 Orders Only Kaye Clements RN Malignant neoplasm of central portion of left breast in female, estrogen receptor negative (HCC) 01/08/2018 Telephone Oncology Nitin Pepper MD Results 01/02/2018 [facility] Oncology Nitin Pepper MD Encounter 01/02/2018 Office Visit Oncology Nitin Pepper MD Malignant neoplasm of central portion of left breast in female, estrogen receptor negative (HCC) (Primary Dx); Ovarian cancer on left (HCC) 01/02/2018 Telephone Kaye Clements RN Care Coordination 01/01/2018 Orders Only Kaye Clements RN Malignant neoplasm of central portion of left breast in female, estrogen receptor negative (HCC) 01/01/2018 Telephone Kaye Clements RN Results; Chemotherapy 12/26/2017 Orders Only Kaye Clements RN Malignant neoplasm of central portion of left breast in female, estrogen receptor negative (HCC) 12/25/2017 Telephone Kaye Clements RN Care Coordination 12/19/2017 [facility] Nitin Martines MD Encounter 12/19/2017 Office Visit Nitin Martines MD Malignant neoplasm of central portion of left breast in female, estrogen receptor negative (HCC) 12/18/2017 Telephone Oncology Nitin Pepper MD Care Coordination ( review labs for tomorrow's treatment) 12/18/2017 Orders Only Nitin Martines MD 12/12/2017 Telephone Oncology Kaye Watson RN Results 12/11/2017 Orders Only Oncology Kaye Watson RN Malignant neoplasm of central portion of left breast in female, estrogen receptor negative (HCC) 12/05/2017 Office Visit Oncology Omayra Ramirez, Malignant neoplasm of LOTTER[employer] MANAGER female breast, unspecified estrogen receptor status, unspecified laterality, unspecified site of breast (HCC) (Primary Dx); Malignant neoplasm of central portion of left breast in female, estrogen receptor negative (HCC) 12/05/2017 Hospital Oncology Omayra Ramirez, Encounter LOTTERY MANAGER 12/05/2017 Orders Only Oncology Nitin Pepper MD Malignant neoplasm of central portion of left breast in female, estrogen receptor negative (HCC) (Primary Dx) 12/04/2017 Orders Only Kaye Clements RN Malignant neoplasm of central portion of left breast in female, estrogen receptor negative (HCC) 12/04/2017 Refill Oncology Nitin Pepper MD 12/04/2017 Telephone Oncology Kaye Watson RN Chemotherapy 12/03/2017 Refill Nitin Martines MD 11/27/2017 Orders Only Kaye Clements RN Malignant neoplasm of central portion of left breast in female, estrogen receptor negative (HCC) 11/27/2017 Telephone Kaye Clements RN Procedure (tooth abscess) 11/27/2017 Telephone Oncology Kaye Watson RN Results 11/21/2017 Orders Only Oncology Cami Aguilar, KULWINDER 11/20/2017 Office Visit Nitin Martines MD Malignant neoplasm of central portion of left breast in female, estrogen receptor negative (HCC) 11/20/2017 Hospital Oncology Nitin Pepper MD Encounter 11/20/2017 Hospital Lab Nitin Pepper MD Encounter 11/20/2017 Telephone Oncology Kaye Watson RN Care Coordination ( labs locally at [facility]) 11/14/2017 Office Visit Oncology Cami Aguilar, KULWINDER Malignant neoplasm of central portion of left breast in female, estrogen receptor negative (HCC) (Primary Dx); Anxiety; Ovarian cancer on left (HCC) 11/14/2017 [facility] Oncology Cami Aguilar APRN Encounter 11/14/2017 Hospital Lab Hui Aguilare, LOTTERY MANAGER Encounter 11/11/2017 Telephone Oncology Kaye Watson, STEVEN Appointment Request 11/07/2017 Hospital Oncology Cami Aguilar, LOTTERY MANAGER Encounter 11/07/2017 Office Visit Oncology Cami Aguilar, LOTTERY MANAGER Malignant neoplasm of central portion of left breast in female, estrogen receptor negative (HCC) (Primary Dx); Anxiety 11/07/2017 Hospital Lab Cami Aguilar, LOTTERY MANAGER Encounter 11/05/2017 Orders Only Oncology Kaye Watson RN Malignant neoplasm of central portion of left breast in female, estrogen receptor negative (HCC) 11/03/2017 Office Visit Breast Clinic / Breast Edie Geiger MD Malignant neoplasm of [facility], LOTTERY MANAGER central portion of left breast in female, estrogen receptor negative (HCC) (Primary Dx) 11/03/2017 Documentation Breast Clinic / Breast Edie Geiger MD Center 11/03/2017 Telephone Breast Clinic / Breast Edie Geiger MD Surgical Followup Center 10/31/2017 Orders Only Oncology Mitzy Cristina, PHARMD 10/30/2017 Office Visit Oncology Nitin Pepper MD Malignant neoplasm of central portion of left breast in female, estrogen receptor negative (HCC) (Primary Dx) 10/30/2017 [facility] Radiology Nitin Pepper MD Encounter 10/30/2017 Orders Only Oncology Nitin Pepper MD Malignant neoplasm of central portion of left breast in female, estrogen receptor negative (HCC) (Primary Dx) 10/30/2017 Documentation Breast Clinic / Breast Edie Geiger MD Malignant neoplasm of Center central portion of left breast in female, estrogen receptor negative (HCC) (Primary Dx); S/P mastectomy, left 10/29/2017 Telephone Oncology Edie Geiger MD Surgical Followup ( ASHER drain removal) 10/27/2017 Telephone Breast Clinic / Breast Edie Geiger MD Other (ASHER drain removal) Center 10/23/2017 Office Visit Oncology Nitin Pepper MD Malignant neoplasm of [facility], LOTTERY MANAGER central portion of left breast in female, estrogen receptor negative (HCC) 10/23/2017 Office Visit Oncology Nitin Pepper MD Malignant neoplasm of central portion of left breast in female, estrogen receptor negative (HCC) (Primary Dx); Ovarian cancer on left (HCC) 10/23/2017 Hospital Lab Nitin Pepper MD Encounter 10/23/2017 Procedure Pass Radiology 10/23/2017 Orders Only Oncology Nitin Pepper MD Malignant neoplasm of central portion of left breast in female, estrogen receptor negative (HCC) (Primary Dx); Ovarian cancer on left (HCC) 10/23/2017 Hospital Radiology Nitin Pepper MD Encounter 10/21/2017 Orders Only Oncology Nitin Pepper MD Malignant neoplasm of central portion of left breast in female, estrogen receptor negative (HCC) (Primary Dx) 10/17/2017 Telephone Oncology Edie Geiger MD Surgical Followup ( drain question) 10/14/2017 Hospital Edie Geiger MD Malignant neoplasm of - Encounter central portion of left 10/15/2017 breast in female, estrogen receptor negative (HCC) 10/14/2017 Procedure Pass 10/14/2017 Surgery Edie Geiger MD LEFT TOTAL MASTECTOMY, REVERSE LYMPHATIC MAPPING, SKIN PUNCH BIOPSY 10/13/2017 Anesthesia Rosanna Black CRNA Event 10/13/2017 Orders Only Oncology Cami Aguilra APRN Dysuria ( Primary Dx) 10/13/2017 Orders Only Oncology Kaye Watson RN Dysuria from Last 3 Months Family History Medical History Relation Name Comments Cancer Maternal Aunt Cancer-Lung Maternal Grandmother Cancer-Lung Maternal Uncle Cancer-Breast Mother Relation Name Status Comments Maternal Aunt Maternal Grandmother Maternal Uncle Mother Social History Tobacco Use Types Packs/Day Years Used Date Former Smoker Cigarettes 0.25 5 06/13/1966 - 09/02/1969 Smokeless Tobacco: Never Used Alcohol Use Drinks/Week oz/Week Comments No Sex Assigned at Date Recorded Not on file Last Filed Vital Signs Vital Sign Reading Time Taken Blood Pressure 107/65 01/02/2018 11:26 AM CDT Pulse 84 01/02/2018 11:26 AM CDT Temperature 36.7 C (98 F) 01/02/2018 11:26 AM CDT Respiratory Rate 18 01/02/2018 11:26 AM CDT Oxygen Saturation 99% 01/02/2018 11:26 AM CDT Inhaled Oxygen - - Concentration Weight 54.6 kg (120 lb 6.4 oz) 01/02/2018 11:28 AM CDT Height 167.6 cm (5' 6") 01/02/2018 11:28 AM CDT Body Mass Index 19.43 01/02/2018 11:28 AM CDT Plan of Treatment Health Maintenance Due Date Last Done Comments PHYSICAL (COMPREHENSIVE) 1947 EXAM PERTUSSIS VACCINE 1953 TETANUS VACCINE 1959 COLORECTAL CANCER 1992 SCREENING SHINGLES VACCINE 2002 OSTEOPOROSIS SCREENING 2007 PNEUMONIA (PCV13/PPSV23) 2007 VACCINES (1 of 2 - PCV13) INFLUENZA VACCINE 05/18/2018 Procedures Procedure Name Priority Date/Time Associated Diagnosis Comments ECG-SCAN 10/16/2017 Results for this 12:59 PM INSPECTOR PROCESS procedure are in the results section. LEFT AXILLARY LYMPH NODE 10/14/2017 Malignant neoplasm of DISSECTION 7:30 AM INSPECTOR PROCESS central portion of left breast in female, estrogen receptor negative (HCC) Special Needs 10/06 PER CHANGE FORM, REVISE PROCEDURE AND CASE LENGTH. BEKA ([id number])10/09 PER CHANGE FORM, ADD MESSAGE TO CASE COMMENTS. BEKA ([id number]) LEFT TOTAL MASTECTOMY, 10/14/2017 Malignant neoplasm of REVERSE LYMPHATIC 7:30 AM INSPECTOR PROCESS central portion of left MAPPING, SKIN PUNCH breast in female, BIOPSY estrogen receptor negative (HCC) Special Needs / PER CHANGE FORM, REVISE PROCEDURE AND CASE LENGTH. BEKA ([id number])10/09 PER CHANGE FORM, ADD MESSAGE TO CASE COMMENTS. BEKA ([id number]) from Last 3 Months Results * CBC AND DIFF (01/08/2018) Only the most recent of 11 results within the time period is included. Component Value Ref Range White Blood Cells RBC Hemoglobin Hematocrit MCV MCH MCHC Platelet Count MPV RDW Neutrophils Absolute Neutrophil Count Lymphocytes Absolute Lymph Count Monocytes Absolute Monocyte Count Eosinophil Absolute Eosinophil Count Basophils Absolute Basophil Count Atypical Lym Metamyelocyte Myelocyte Promyelocyte Blast RBC Morph WBC Morphology Specimen Performing Laboratory [facility] [address] , [address] [address] * CA125 (01/08/2018) Component Value Ref Range CA-125 Specimen Performing Laboratory [facility] [address] , [address] [address] * COMPREHENSIVE METABOLIC PANEL (01/08/2018) Only the most recent of 10 results within the time period is included. Component Value Ref Range Sodium Potassium Chloride CO2 Blood Urea Nitrogen Creatinine Glucose Calcium Total Protein Total Bilirubin Albumin Alk Phosphatase AST (SGOT) ALT (SGPT) eGFR Non eGFR Anion Gap Specimen Performing Laboratory [facility] [address] , [address] [place] [address] * PATHOLOGY INTEROPERATIVE REPORT SCAN (11/03/2017 10:29 AM) Narrative Ordered by an unspecified provider. * NM PET SCAN TORSO (SKULL-THIGHS) (10/30/2017 9:02 AM) Specimen Performing Laboratory [facility] RESULTS Impressions 1. Interval left mastectomy and left axillary lymph node dissection with extensive postoperative changes in these regions. Mild FDG uptake in these regions is likely secondary to postoperative inflammation. No significant residual hypermetabolic adenopathy. 5 cm fluid collection within the left axilla likely represents a postoperative seroma. 2. Development of mild bibasilar infiltrate and atelectasis. There is a new small hypermetabolic focus noted within the right lung base immediately adjacent to the dome of the right hemidiaphragm which may represent a more focal area of pneumonitis. In addition, there are a few essentially stable subcentimeter pleural and peripheral nodular densities which are likely secondary to granulomatous disease or scarring. However, routine diagnostic CT chest would be useful to establish a baseline for follow-up purposes. 3. Calcified coronary artery disease. Finalized by Reynaldo Geiger M.D. on 10/30/2017 9:51 AM. Dictated by Reynaldo Geiger M.D. on 10/30/2017 9:33 AM. Narrative PET/CT NECK, CHEST, ABDOMEN AND PELVIS CLINICAL HISTORY:Female, 77 years old. Malignant neoplasm of central portion of left breast in female, estrogen receptor negative. Ovarian cancer on the left. Chemotherapy completed in September 2017. RADIOPHARMACEUTICAL:8.9 mCi F-18 Fluorodeoxyglucose (FDG) IV. TECHNIQUE:Beginning approximately 80 minutes after tracer administration, routine whole body PET/CT imaging was performed from the level of the base of the skull to the upper thighs.PET images were reviewed in standard orthogonal projections.Low dose non-contrast CT imaging was performed for attenuation correction and localization purposes. BLOOD GLUCOSE LEVEL AT THE TIME OF RADIOPHARMACEUTICAL ADMINISTRATION:85 mg/ dl COMPARISON: 06/18/2017 FINDINGS: The current mean hepatic SUV is 2.2, previously 2.1 Head/Neck: No suspicious lesions are identified in this region. Chest: Interval left mastectomy and left axillary lymph node dissection. Surgical drain is noted within the left anterior chest wall. There is a 5.0 cm fluid collection within the left axilla just inferior to some surgical clips with only mild surrounding FDG uptake. Additional areas of ill-defined uptake within the left axilla and left subpectoral region are also noted likely secondary to postoperative inflammation. No definite significant residual hypermetabolic adenopathy is noted. There has been interval development of mild ill-defined infiltrates within both lower lobes with associated minimal FDG uptake likely secondary to pneumonitis. A small more focal hypermetabolic process is noted within the right lung base immediately adjacent to the right hemidiaphragm on CT image 132 with a maximal SUV of 2.8. No definite focal mass lesion is noted within the lung base or adjacent hepatic dome. Abdomen/Pelvis: No suspicious hypermetabolic lesions are seen within the abdomen or pelvis. Physiological activity is noted within the kidneys and bladder. Osseous Structures: No suspicious hypermetabolic osseous lesions are seen. Additional significant low dose CT findings: Left maxillary sinus retention cyst. Right-sided chest port. Calcified coronary artery disease. Stable tiny subcentimeter pulmonary nodule within the right middle lobe on CT image 117 as well as a few additional tiny pleural-parenchymal densities such as within the right lateral lung base which are essentially stable. Uncorrected PET images:The uncorrected PET images demonstrate no additional abnormality. Procedure Note Interface, Radiant Results - 10/30/2017 9:54 AM CDT PET/CT NECK, CHEST, ABDOMEN AND PELVIS CLINICAL HISTORY: Female, 77 years old. Malignant neoplasm of central portion of left breast in female, estrogen receptor negative. Ovarian cancer on the left. Chemotherapy completed in September 2017. RADIOPHARMACEUTICAL: 8.9 mCi F-18 Fluorodeoxyglucose (FDG) IV. TECHNIQUE: Beginning approximately 80 minutes after tracer administration, routine whole body PET/CT imaging was performed from the level of the base of the skull to the upper thighs. PET images were reviewed in standard orthogonal projections. Low dose non-contrast CT imaging was performed for attenuation correction and localization purposes. BLOOD GLUCOSE LEVEL AT THE TIME OF RADIOPHARMACEUTICAL ADMINISTRATION: 85 mg/dl COMPARISON: 06/18/2017 FINDINGS: The current mean hepatic SUV is 2.2, previously 2.1 Head/Neck: No suspicious lesions are identified in this region. Chest: Interval left mastectomy and left axillary lymph node dissection. Surgical drain is noted within the left anterior chest wall. There is a 5.0 cm fluid collection within the left axilla just inferior to some surgical clips with only mild surrounding FDG uptake. Additional areas of ill-defined uptake within the left axilla and left subpectoral region are also noted likely secondary to postoperative inflammation. No definite significant residual hypermetabolic adenopathy is noted. There has been interval development of mild ill-defined infiltrates within both lower lobes with associated minimal FDG uptake likely secondary to pneumonitis. A small more focal hypermetabolic process is noted within the right lung base immediately adjacent to the right hemidiaphragm on CT image 132 with a maximal SUV of 2.8. No definite focal mass lesion is noted within the lung base or adjacent hepatic dome. Abdomen/Pelvis: No suspicious hypermetabolic lesions are seen within the abdomen or pelvis. Physiological activity is noted within the kidneys and bladder. Osseous Structures: No suspicious hypermetabolic osseous lesions are seen. Additional significant low dose CT findings: Left maxillary sinus retention cyst. Right-sided chest port. Calcified coronary artery disease. Stable tiny subcentimeter pulmonary nodule within the right middle lobe on CT image 117 as well as a few additional tiny pleural-parenchymal densities such as within the right lateral lung base which are essentially stable. Uncorrected PET images: The uncorrected PET images demonstrate no additional abnormality. IMPRESSION 1. Interval left mastectomy and left axillary lymph node dissection with extensive postoperative changes in these regions. Mild FDG uptake in these regions is likely secondary to postoperative inflammation. No significant residual hypermetabolic adenopathy. 5 cm fluid collection within the left axilla likely represents a postoperative seroma. 2. Development of mild bibasilar infiltrate and atelectasis. There is a new small hypermetabolic focus noted within the right lung base immediately adjacent to the dome of the right hemidiaphragm which may represent a more focal area of pneumonitis. In addition, there are a few essentially stable subcentimeter pleural and peripheral nodular densities which are likely secondary to granulomatous disease or scarring. However, routine diagnostic CT chest would be useful to establish a baseline for follow-up purposes. 3. Calcified coronary artery disease. Finalized by Reynaldo Geiger M.D. on 10/30/2017 9:51 AM. Dictated by Reynaldo Geiger M.D. on 10/30/2017 9:33 AM. * POC GLUCOSE (10/30/2017 7:39 AM) Component Value Ref Range Glucose, POC 85 70 - 100 MG/DL Specimen Performing Laboratory [facility] [address] [place] [address] * 2-D ECHOCARDIOGRAM ONLY (10/29/2017) Specimen Performing Laboratory [facility] [address] [place] [address] * CYTOGENETICS SCAN (10/23/2017 2:56 PM) Narrative Ordered by an unspecified provider. * TUMOR PROGNOSTIC MARKERS SCAN (10/23/2017 8:45 AM) Only the most recent of 2 results within the time period is included. Narrative Ordered by an unspecified provider. * NM PET/CT EXTERNAL IMAGING (10/23/2017) Specimen Performing Laboratory OTHER OUTSIDE LAB Narrative This order has been auto finalized and does not contain a result. * ECG-SCAN (10/16/2017 12:59 PM) Narrative Ordered by an unspecified provider. * SURGICAL PATHOLOGY (10/14/2017 8:10 AM) Component Value Ref Range PATHOLOGY REPORT [facility] [email or web address] Department of Pathology and Laboratory Medicine [address] [place] [id number] Surgical Pathology Office:[phone]:[phone] SURGICAL PATHOLOGY REPORT NAME: CALLIE DOMINGUEZ SURG PATH #: [id number] MR #: [id number] SPECIMEN CLASS: SI BILLING #: [id number] ALT ID #:LOCATION: [facility] DATE OF PROCEDURE: 10/14/2017 AGE:77 SEX: F DATE RECEIVED: 10/14/2017 : 1940TIME RECEIVED:08:10 PHYSICIAN: EDIE GEIGER MD DATE OF REPORT: 10/20/2017 COPY TO:DATE OF PRINTIN10/21/2017 Procedures/Addenda Addendum Date Ordered: 10/21/2017 Status:Signed Out Date Complete: 10/21/2017 By: Keyona Botello MD, PhD Date Reported: 10/21/2017 Addendum Diagnosis The diagnosis is changed. Addendum Comment Breast Cancer Prognostic Panel by Quantitative Computer-Assisted Image Analysis Testing performed on block Number: E22 Estrogen Receptor (ER):0% Negative Stain Intensity: Not Applicable Progesterone Receptor (MS): 0% Negative Stain Intensity: Not Applicable Her2: 2+ Equivocal Ki-67 68% Testing performed on block Number: F5 Estrogen Receptor (ER):0% Negative Stain Intensity: Not Applicable Progesterone Receptor (MS): 0% Negative Stain Intensity: Not Applicable Her2: 2+ Equivocal Ki-67 87% The original image analysis report is scanned in [employer] under Results Review. Deshaun Estrogen receptor antibody, Clone SP1, is Food and Drug Administration cleared.Dako Progesterone Receptor antibody, Clone 636, is Food and Drug administration cleared.[employer] HercepTest, HER2 antibody is a FDA approved kit. 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 FISH studies will be performed to assess amplification of the HER-2 gene due to EQUIVOCAL immunoperoxidase results. ################################################## ###################### Final Diagnosis: A. Skin, "left 900 4 cm fn skin punch", biopsy: Negative for malignancy. B. Skin, "left 1000 4 cm fn skin punch", biopsy: Negative for malignancy. C. Skin, "left 100 9 cm fn skin punch", biopsy: Positive for carcinoma. D. Skin, "left 100 8 cm fn skin punch", biopsy: Negative for malignancy. E. 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 Numerous foci of lymphovascular invasion present. Previous biopsy site changes. See checklist. F. 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 G. Skin, "left additional anterior skin margin, short superior, long lateral with clips ortega known inflammatory area", excision: Scattered foci of lymphovascular invasion. Lymphovascular invasion present at inferior margin. H. Skin, "left additional axillary skin, short stitch superior, long stitch lateral", excision: Focus of invasive ductal carcinoma in subcutaneous adipose tissue (5 mm), less than 0.1 mm from deep margin. Scattered foci of lymphovascular invasion. Comment: INVASIVE CARCINOMA OF THE BREAST STATUS POST NEOADJUVANT THERAPY CAP Version: InvasiveBreast 4.0.0.0 Specimen Type: Laterality: Left Tumor Site: 2:00 Tumor Bed Identified: Yes Size/Extent of Tumor Bed: 6.6 x 4.5 cm Size/Extent of Residual Invasive Tumor: 6.6 x 4.5 cm Overall Residual Cellularity of the Tumor Bed: 20% Histologic Type: Invasive ductal Histologic Grade (Arnot Histologic Score):III/III Tubule Formation: 3 Nuclear Grade: 3 Mitotic Count (40x objective): 3 Total Arnot Score: 9/9 Ductal Carcinoma In-situ (DCIS): Not identified Surgical Margins: Mastectomy For invasive carcinoma: In the main specimen (E), the tumor is less than 0.2 mm from anterior margin, 8.0 mm from posterior margin and greater than 10 mm from other margins. The skin ellipse anterior to tumor contains invasive carcinoma and lymphovascular invasion: invasive carcinoma is present at 12:00-3:00 and 6:00- 9:00 peripheral margins of the skin ellipse; lymphovascular invasion is present in all four quadrants of the peripheral margins of the skin ellipse. In specimen G (left additional anterior skin margin), the inferior margin contains lymphovascular invasion. In specimen H (left additional axillary skin) there is a focus of invasive carcinoma which is 0.1 mm from deep margin and greater than 5 mm from peripheral margins. Lymphovascular invasion is present at the medial tip. For DCIS: N/A Lymph-Vascular Invasion: Present, extensive Nipple Involvement: Absent Skin Involvement: Present Invasive carcinoma directly invades into the dermis or epidermis without skin ulceration (this does not change the T stage) Skeletal Muscle: Not involved Lymph Node Sampling: Axillary dissection Total number of involved nodes/total nodes found: Number of lymph nodes with macrometastases (>2 mm): 14 Number of lymph nodes with micrometastases (>0.2 mm to 2 mm): 0 Size of largest metastasis: 1.0 cm Extranodal extension: Not identified Evidence of treatment response (fibrous scarring) in the metastases: Present Number of lymph nodes with evidence of treatment response (fibrous scarring) but no tumor cells: 0 Treatment Effect in the Breast In the Breast: Partial In the Lymph Nodes: Partial Prognostic markers: The results will be issued as an addendum. Time between tumor removal and placement into formalin < 1 hour:Yes Fixation Time between 6-72 hours:Yes Pathologic Staging (pTNM, AJCC 8th Edition): ypT3 N3a Mn/a Primary Tumor (Invasive Carcinoma) (pT) pT3: Tumor >50 mm in greatest dimension Regional Lymph Nodes (pN) pN3a: Metastases in 10 or more axillary lymph nodes (at least 1 tumor deposit greater than 2.0 mm) Distant Metastasis (M) Not applicable The pathologic stage assigned here should be regarded as provisional, as it reflects only current pathologic data and does not incorporate full knowledge of the patient's clinical status and/or prior pathology. Block for Biomarker Testing: [E22, F5] Attestation: By this signature, I attest that I have personally formulated the final interpretation expressed in this report and that the above diagnosis is based upon my examination of the slides and/or other material indicated in this report. +++ +++ lkr/10/15/2017 ################################################## ###################### Material Received: A: left 900 4 cm fn skin punch B: left 1000 4 cm fn skin punch C: left 100 9 cm fn skin punch D: left 100 8 cm fn skin punch E: left mastectomy short stitch superior, long stitch lateral F: left axillary contents G: left additional anterior skin margin, short superior, long lateral with clips ortega known inflammatory area H: left additional axillary skin, short stitch superior, long stitch lateral History: 77-year-old female with history of malignant neoplasm of central portion of left breast, estrogen receptor negative. Gross Description: A. Labeled "left 9:00 4 cm fn skin punch" is a 0.8 cm in length by 0.3 cm in diameter punch submitted entirely for frozen section consultation with remnant being placed in cassette A1FS. (sld) B. Labeled "left 10:00 4 cm fn skin punch" is a 0.8 cm in length by 0.3 cm in diameter punch, submitted entirely for frozen section consultation with remnant being placed in cassette B1FS. (sld) C. Labeled "left 1:00 9 cm fn skin punch" is a 0.8 cm in length by 0.3 cm in diameter punch, submitted entirely for frozen section consultation with remnant being placed in cassette C1FS. (sld) D. Labeled "left 1:00 8 cm fn skin punch" is a 0.8 cm in length by 0.3 cm in diameter punch, submitted entirely for frozen section consultation with the remnant being placed in cassette D1FS. (sld) E. Fixative: Fresh Labeled: Left mastectomy short stitch superior, long stitch lateral Specimen received: Simple mastectomy Weight: 688 grams Breast measurement: 18.5 cm from superior to inferior, 17.5 cm from medial to lateral, 9.0 cm from anterior to posterior Skin appearance and size: There are two fragments of skin attached to the anterior portion of the breast. The fragments of skin are 7.5 cm apart. The fragment of skin with the nipple is gonzalez-white and irregular measuring 8.5 x 7.5 cm. There is no skin induration/retraction on the fragment of skin with the nipple. The nipple measures 1.7 x 1.5 cm and is eccentric and flattened. The 2nd fragment of skin is a pink-gonzalez ellipse measuring 7.5 x 4.5 cm. On the surface of the 2nd fragment of skin there are areas of brown-black. The brown-black areas on the 2nd fragment of skin are 0.1 cm from 3:00, 0.4 cm from 9:00, 0.7 cm from 12:00, and 1.0 cm from 6:00. The fragments of skin are inked as follows: 12:00 to 3:00 blue 3:00 to 6:00 yellow 6:00 to 9:00 orange 9:00 to 12:00 green Posterior Fascia Present: Yes Fascia Adherent to Tumor: No Lesion: 6.6 x 4.5 x 4.0 cm white-gonzalez, firm, nodular area of tissue surrounding the spring clip. 3.0 cm from the lateral margin 7.2 cm from the medial margin 6.5 cm from the superior margin 11.0 cm from the inferior margin Grossly abuts the anterior skin is 0.2 cm from the anterior breast margin directly lateral to the 2nd fragmentof skin. 1.5 cm from the deep margin 9.0 cm from the nipple Lesion quadrant: Upper outer quadrant Lesion location 2:00 Metallic clip identified: Yes, spring clip Uninvolved breast parenchyma: Yellow-gonzalez, lobulated with a high amount of white-gonzalez fibrous tissue (90%) Tissue sent to the [facility] Core Facility: No The deep resection margin is inked black and the anterior resection margin is inked blue. Axillary dissection attached: No Handicrafts Teacher sections of the specimen are submitted as follows: E1 Handicrafts Teacher sections of the upper outer quadrant. E2 Handicrafts Teacher sections of the lower outer quadrant. E3 Handicrafts Teacher sections of the lower inner quadrant. E4 Handicrafts Teacher sections of the upper inner quadrant. E5 Entire shave of 12:00 to 3:00 skin margin of 2nd fragment of skin. [id number] shave of 3:00 to 6:00 skin margin of 2nd fragment of skin. [id number] shave of 6:00 to 9:00 skin margin of 2nd fragment of skin. [id number] shave of 9:00 to 12:00 skin margin of 2nd fragment of skin. L6Pitaaf shave of 12:00 to 3:00 skin margin of 1st fragment of skin. [id number] shave 3:00 to 6:00 skin margin of 1st fragment of skin. [id number] shave of 6:00 to 9:00 skin margin of 1st fragment of skin. [id number] shave of 9:00 to 12:00 skin margin of 1st fragment of skin. E13-E14 Entire nipple, serially sectioned. [id number] lateral slice of lesion. [id number] consecutive slice of lesion. E17-E18 Next consecutive slice of lesion in relationship to anterior skin, E19-E20 Next consecutive slice of lesion. E21-E24 Next consecutive slice of lesion, slice with clip (E21 lesion in relationship to skin, E22 lesion in relationship to skin and anterior margin, E24 deep margin closest to lesion). E25-E26 Next consecutive slice of lesion and lesion closest to anterior margin. E27-E28 Next consecutive slice of lesion (E27 lesion to anterior margin). E29-E30 Next consecutive slice of lesion (E29 lesion in relationship to anterior margin. E31-E32 Next consecutive slice of lesion. E33 Most medial slice of lesion. The breast is removed from the patient at 8:53, placed in formalin at 9:10 and not removed from formalin until 20:14 on 10/14/2017. (sld) F. Received fresh labeled with the patient's name and "left axillary contents" is a 8.0 x 6.2 x 2.0 cm yellow-gonzalez, lobulated portion of fibroadipose tissue. The specimen is palpated to reveal multiple possible lymph nodes ranging in size from 0.1 x 0.1 x 0.1 cm to 2.0 x 1.7 x 0.7 cm. The palpebral lymph nodes are submitted as follows: X2Slzmjggc possible lymph nodes. G5Jjmwg possible lymph nodes. F3-F4Four possible lymph nodes in each cassette. F5-F7One possible lymph node, serially sectioned in each cassette. (sld) G. Received fresh labeled with the patient's name and "left additional anterior skin margin, short stitch superior, long stitch lateral, stitch with clip ortega known inflammatory area" is a 14.0 x 8.5 x 1.0 cm gonzalez-white, annular portion of skin. There is a short stitch that ortega superior, a long stitch that ortega lateral, and a stitch with clips that ortega known inflammatory area by the surgeon. The superior margin is inked blue, the inferior margin is inked green, the known inflammatory area margin (false margin) is inked yellow, the inside of the annular portion of skin is inked orange, and the deep margin is inked black. No lesions are grossly identified on the surface of the skin. Handicrafts Teacher sections are submitted as follows: G1-V2Bgxpcp shave of superior margin. G3-N7Secdha shave of medial margin. G5-W2Iaqlaq shave of inferior margin. S4Jtweqfwoywbwb digital sales representative sections of known inflammatory area (false margin). G8-P1Lisyyigdfcboak sections of skin. (sld) H. Received fresh labeled with the patient's name and "left additional axillary skin, short stitch superior, long stitch lateral" is a 4.1 x 2.5 x 1.0 cm irregular fragment of gonzalez-white skin. There is a stitch ortega superior by the surgeon and a long stitch that ortega lateral by the surgeon. The superior margin is inked blue, the inferior margin is inked green, and the deep margin is inked black. No abnormalities are identified on the surface of the skin. The specimen is serially sectioned from lateral to medial and submitted sequentially in cassettes H1-H6. (sld) 10/14/2017 Intraoperative Consultation: A1FS, skin, "left 9:00 4 cm fn skin punch", biopsy: Negative for malignancy. B1FS, skin, "left 10:00 4 cm fn skin punch", biopsy: Negative for malignancy. C1FS, skin, "left 1:00 9 cm fn skin punch", biopsy: Positive for carcinoma D1FS, skin, "left 1:00 8 cm fn", biopsy: Negative for malignancy. Frozen section performed at the [facility], [address] [place] [address]. Janny Arias MD, PhD If immunohistochemical stains and/or in situ hybridization are cited in this report, the performance characteristics were determined by the Department of Pathology and Laboratory Medicine of the [facility] ([employer] [facility]) in compliance with CLIA'88 regulations.Some of these tests rely on the use of "analyte specific reagents" and are subject to specific labeling requirements by the FDA. Known positive and negative control tissues demonstrate appropriate staining.Results should be interpreted with caution given the likelihood of false negativity on decalcified specimens.This testing was developed by the Department of Pathology and Laboratory Medicine of the [facility].It has not been cleared or approved by the FDA.The FDA has determined that such clearance or approval is not necessary. Specimen Performing Laboratory [facility] RESULTS * CHROMOSOMES FISH DNA PROBE (10/14/2017 8:10 AM) Component Value Ref Range Chromosomes Fish DNA SEE WRAPPER LEAF INSPECTOR FOR REPORT Probe Specimen Performing Laboratory [facility] [address] [place] [address] from Last 3 Months
--- OUTSIDE RECORDS SUMMARY | 2018-01-10 11:35 | XMS REPORT | Encounter Summary ---
Author Author [facility] Address Unknown Phone Unavailable Care Team Providers Care Steel Box Toe Inserter Name Role Phone Doctor, Miscellaneous Unavailable Unavailable Mitch Benavides MD PCP Encounter Details Date Type Department Care Team Description 01/08/2018 Orders Only [facility] Kaye Watson RN Malignant neoplasm of Cancer Center - OP Exam central portion of left [address] breast in female, [place], [place] estrogen receptor [phone] negative ([facility]) [phone] Social History Tobacco Use Types Packs/Day Years [...] impairment: No 12/19/2017 as of this encounter Plan of Treatment Not on fileas of this encounter Results * COMPREHENSIVE METABOLIC PANEL (01/08/2018) Component Value Ref Range Sodium Potassium Chloride CO2 Blood Urea Nitrogen Creatinine Glucose Calcium Total Protein Total Bilirubin Albumin Alk Phosphatase AST (SGOT) ALT (SGPT) eGFR Non eGFR Anion Gap Specimen Performing Laboratory [facility] [address] , [address] [place] [address] * CBC AND DIFF (01/08/2018) Component Value Ref Range White Blood Cells RBC Hemoglobin Hematocrit MCV MCH MCHC Platelet Count MPV RDW Neutrophils Absolute Neutrophil Count Lymphocytes Absolute Lymph Count Monocytes Absolute Monocyte Count Eosinophil Absolute Eosinophil Count Basophils Absolute Basophil Count Atypical Lym Metamyelocyte Myelocyte Promyelocyte Blast RBC Morph WBC Morphology Specimen Performing Laboratory [facility] [address] , [address] [place] [address] in this encounter Visit Diagnoses Diagnosis Malignant neoplasm of central portion of left breast in female, estrogen receptor negative (HCC)
--- OUTSIDE RECORDS SUMMARY | 2018-01-10 11:35 | XMS REPORT | Encounter Summary ---
Author Author [facility] Organization [facility] Address Unknown Phone Unavailable Care Team Providers Care Patents Examiner Name Role Phone Doctor, Miscellaneous Unavailable Unavailable Mitch Benavides MD PCP Encounter Details Date Type Department Care Team Description 01/01/2018 Orders Only [facility] Kaye Watson RN Malignant neoplasm of Cancer Center - OP Exam central portion of left [address] breast in female, [place], [place] estrogen receptor [phone] negative ([facility]) [phone] Social History Tobacco Use Types Packs/Day Years [...] this encounter Results * COMPREHENSIVE METABOLIC PANEL (01/01/2018) Component Value Ref Range Sodium Potassium Chloride CO2 Blood Urea Nitrogen Creatinine Glucose Calcium Total Protein Total Bilirubin Albumin Alk Phosphatase AST (SGOT) ALT (SGPT) eGFR Non eGFR Anion Gap Specimen Performing Laboratory [facility] [address] , [address] [place] [address] * CBC AND DIFF (01/01/2018) Component Value Ref Range White Blood Cells RBC Hemoglobin Hematocrit MCV MCH MCHC Platelet Count MPV RDW Neutrophils Absolute Neutrophil Count Lymphocytes Absolute Lymph Count Monocytes Absolute Monocyte Count Eosinophil Absolute Eosinophil Count Basophils Absolute Basophil Count Atypical Lym Metamyelocyte Myelocyte Promyelocyte Blast RBC Morph WBC Morphology Specimen Performing Laboratory [facility] [address] , [address] [place] [address] in this encounter Visit Diagnoses Diagnosis Malignant neoplasm of central portion of left breast in female, estrogen receptor negative (HCC)
--- OUTSIDE RECORDS SUMMARY | 2018-01-10 11:35 | XMS REPORT | Encounter Summary ---
Author Author [facility] Organization [facility] Address Unknown Phone Unavailable Care Team Providers Care Hand Mixer Name Role Phone Doctor, Miscellaneous Unavailable Unavailable Mitch Benavides MD PCP Encounter Details Date Type Department Care Team Description 01/09/2018 Orders Only [facility] Kaye Watson RN Malignant neoplasm of Cancer Center - OP Exam central portion of left [address] breast in female, [place], [place] estrogen receptor [phone] negative (HCC); [phone] Ovarian cancer on left (HCC) Social History Tobacco Use Types Packs/Day Years [...] on fileas of this encounter Results * CA125 (01/08/2018) Component Value Ref Range CA-125 Specimen Performing Laboratory [facility] [address] [facility] , [address] [place] [address] in this encounter Visit Diagnoses Diagnosis Malignant neoplasm of central portion of left breast in female, estrogen receptor negative (HCC) Ovarian cancer on left (HCC) Malignant neoplasm of ovary
--- OUTSIDE RECORDS SUMMARY | 2018-01-10 11:35 | XMS REPORT | Encounter Summary ---
Author Author [facility] Organization [facility] Address Unknown Phone Unavailable Care Team Providers Care Software Engineer Mobile Name Role Phone Doctor, Miscellaneous Unavailable Unavailable Mitch Benavides MD PCP Reason for Visit * Reason Comments Care Coordination Encounter Details Date Type Department Care Team Description 01/02/2018 Telephone [facility] Kaye Watson RN Care Coordination Cancer Center - OP Exam [address] [phone] Social History Tobacco Use Types [...] Telephone Encounter - Kaye Watson RN - 01/02/2018 2:20 PM JOSIAS Cuello, with radiation department at [facility], called to state that they have not yet scheduled the patient due to lack of records from . Sent some of the requested records so they were able to schedule patient and a number for the medical records department also provided at this time To gain most of the patient's medical record. in this encounter Plan of Treatment Not on fileas of this encounter Visit Diagnoses Not on filein this encounter
--- OUTSIDE RECORDS SUMMARY | 2018-01-10 11:35 | XMS REPORT | Encounter Summary ---
Author Author [facility] Organization [facility] Address Unknown Phone Unavailable Care Team Providers Care Title Department Manager Name Role Phone Doctor, Miscellaneous Unavailable Unavailable Mitch Benavides MD PCP Reason for Visit * Reason Comments Results Chemotherapy Encounter Details Date Type Department Care Team Description 01/01/2018 Telephone [facility] Kaye Watson RN Results; Chemotherapy Cancer Center - OP Exam [address] [phone] Social History Tobacco Use Types [...] Telephone Encounter - Kaye Watson RN - 01/01/2018 12:35 PM CDT Called patient and informed her that she was good for treatment tomorrow after review of her labs. She will see Dr. Pepper in f/u at 11:40 tomorrow which was confirmed with patient. in this encounter Plan of Treatment Not on fileas of this encounter Visit Diagnoses Not on filein this encounter
--- OUTSIDE RECORDS SUMMARY | 2018-01-10 11:35 | XMS REPORT | Encounter Summary ---
Author Author [facility] Organization [facility] Address Unknown Phone Unavailable Care Team Providers Care Hall Supervisor Name Role Phone Doctor, Miscellaneous Unavailable Unavailable Mitch Benavides MD PCP Reason for Visit * Reason Comments Heme/Onc Care Encounter Details Date Type Department Care Team Description 01/02/2018 Office Visit [facility] Nitin Pepper MD Malignant neoplasm of Cancer Center - OP Exam [address] central portion of left [address] [place] [address] breast in female, [place], [place] [phone] estrogen receptor [phone] negative (HCC) (Primary [phone] Dx); Ovarian cancer on left (HCC) Social History Tobacco Use Types Packs/Day Years Used Date Former Smoker Cigarettes 0.25 5 06/13/1966 - 09/02/1969 Smokeless Tobacco: Never Used Alcohol Use Drinks/Week oz/Week Comments No Sex Assigned at Date Recorded Not on file as of this encounter Last Filed Vital Signs Vital Sign Reading [...] Mass Index 19.43 01/02/2018 11:28 AM CDT in this encounter Functional Status Functional Status Response [...] impairment: No 12/19/2017 as of this encounter Progress Notes * Nitin Pepper MD - 01/02/2018 11:40 AM CDT Formatting of this note may be different from the original. Name: Callie De La Garza : 1940 AGE : 77 y.o. DATE OF SERVICE: 01/02/2018 Subjective: Reason for Visit: Heme/Onc Care Callie De La Garza is a 77 y.o. female. Cancer Staging Malignant neoplasm of central portion of left breast in female, estrogen receptor negative (HCC) Staging form: Breast, AJCC 7th Edition - Clinical stage from 06/12/2017: Stage IIIC (T2, N3, M0) - Signed by Lidia Valentine APRN-NP on 06/16/2017 - Pathologic stage from 10/14/2017: Stage IIIC (yT4b, N3, cM0) - Signed by Nitin Pepper MD on 10/23/2017 Ovarian cancer on left (HCC) Staging form: Ovary, AJCC 7th Edition - Pathologic stage from 07/05/2015: Stage IC (T1c, N0, cM0) - Signed by Nitin Pepper MD on 06/11/2017 Callie De La Garza presents today for management of breast cancer. She has the following detailed history: 1. BRANDEE/BSO along with omentectomy and surgical debulking with Dr. 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 No evidence of distant metastatic disease or florentino disease was discovered. Final pathologic Stage IC (T1cN0 M0). 2. Adjuvant dose dense carboplatin and paclitaxel for 6 cycles completed November 2015. 3. Palpable left breast mass discovered May 2017. 4. Ultrasound at [facility] 06/05/2017 revealed 3 cm left breast mass with multiple abnormal left axillary nodes. 5. Core needle biopsy 06/05/2017 at [facility] showed grade 3 invasive ductal carcinoma in the breast and left axillary nodes, ER 1%, MS 0%, Her2 2+ with FISH negative (ratio 1.2, copy number 1.7), Ki-67 75%. 6. MRI 06/18/2017 revealed no suspicious right breast masses. In the left breast, there are several abnormalities which coalesced into a contiguous mass measuring 6.2 cm in greatest dimension. Multiple morphologically abnormal axillary lymph nodes were also present. There are no suspicious infraclavicular , supraclavicular, or internal mammary nodes noted. Staging PET/CT was negative for distant metastatic disease. 7. Carboplatin/docetaxel x 5 completed 09/2017. 8. Left mastectomy and axillary lymph node dissection with Dr. Lugo 2017 revealed 6.5 cm primary lesion with direct extension to the skin and treatment effect with 20% residual tumor cellularity, ER 0%, MS 0%, HER-2 2+ with negative FISH, Ki-67 68%. 14 of 16 dissected lymph nodes were-positive for metastatic disease, with treatment effect noted in the florentino metastases as well, ER 0%, MS 0%, HER-2 2+ with negative FISH, Ki-67 87%. Several margins were removed from the skin due to-positive margin on the original specimen and eventually margins were clear of obvious disease, but lymphovascular invasion was noted. 9. Restaging PET/CT negative for distant metastatic disease. 10. ddAC x4 started October 2017 Interim History: Doing well. Has been tolerating therapy quite well once recovered from her illness. Still feels poorly week after chemotherapy, but recovers well and worked last week a couple of days. Nausea is under good control. She denies any mouth sores, fevers, or infections. No interim infections, hospitalizations or transfusions. There is no significant change in her clinical status and she remains without any focal oncologic symptoms. I have reviewed and updated the past medical, social and family histories in the history section and they are up to date as of this visit. I have extensively reviewed the laboratory, pathology and radiology, both internal and external, and the michel findings are summarized above. Review of Systems Constitutional: Positive for fatigue. HENT: Positive for congestion and rhinorrhea. Eyes: Positive for photophobia. Neurological: Positive for numbness. Psychiatric/Behavioral: Positive for dysphoric mood and sleep disturbance. All other systems reviewed and are negative. Objective: 0.9 % SODIUM CHLORIDE (SODIUM CHLORIDE 0.9% (NS)) 0.9 % infusion Administer 1,000 mL through vein three times weekly. As needed for nausea, vomiting, or dehydration. atorvastatin (LIPITOR) 10 mg tablet Take 10 mg by mouth at bedtime daily. bimatoprost(+) (LUMIGAN) 0.03 % ophthalmic solution Apply 1 drop to right eye as directed at bedtime daily. brimonidine(+) (ALPHAGAN P) 0.1 % ophthalmic solution Apply 1 drop to right eye as directed twice daily. brinzolamide(+) (AZOPT) 1 % ophthalmic suspension Apply 1 drop to right eye as directed twice daily. carteolol(+) (OCUPRESS) 1 % ophthalmic solution Apply 1 drop to right eye as directed twice daily. dexamethasone (DECADRON) 4 mg tablet Take 2 tablets by mouth daily. On Days 2-4 of each cycle. diltiazem CD (CARDIZEM CD) 180 mg capsule Take 180 mg by mouth daily. escitalopram oxalate (LEXAPRO) 10 mg tablet Take 20 mg by mouth at bedtime daily. lidocaine/prilocaine (EMLA) 2.5/2.5 % topical cream Apply to port site 30- 45 minutes prior to port access LORazepam (ATIVAN) 0.5 mg tablet Take 1 tablet by mouth every 12 hours as needed for Nausea. MESALAMINE (CANASA RE) Insert or Apply to rectal area as directed three times weekly. Ondansetron HCl (PF) 4 mg/2 mL syrg Inject 8 mg to area(s) as directed three times weekly. As needed for excessive nausea or vomiting oxyCODONE/acetaminophen (ENDOCET) 5/325 mg tablet Take 1-2 tablets by mouth every 4 hours as needed for Pain Earliest Fill Date: 10/15/[address] (PROTONIX) 40 mg tablet TAKE ONE TABLET BY MOUTH ONCE DAILY pegfilgrastim (NEULASTA) 6 mg/0.6 mL syringe Inject 0.6 mL under the skin as directed. Every 2 weeks x 4 doses with first dose on 11/10/17 prochlorperazine maleate (COMPAZINE) 10 mg tablet Take 1 tablet by mouth every 6 hours as needed for Nausea or Vomiting. ranitidine HCl (ZANTAC PO) Take by mouth as Needed. senna/docusate (SENOKOT-S) 8.6/50 mg tablet Take 1 tablet by mouth twice daily. While taking narcotic pain medication Vitals: 01/02/18 1126 01/02/18 1128 BP: 107/65 Pulse: 84 Resp: 18 Temp: 36.7 C (98 F) TempSrc: Oral SpO2: 99% Weight: 54.6 kg (120 lb 6.4 oz) 54.6 kg (120 lb 6.4 oz) Height: 167.6 cm (66") 167.6 cm (66") Body mass index is 19.43 kg/m. Pain Score: Zero Pain Addressed: N/A Patient Evaluated for a Clinical Trial: Patient not eligible for a treatment trial (including not needing treatment, needs palliative care, in remission). Eastern Cooperative Oncology Group performance status is 1, Restricted in physically strenuous activity but ambulatory and able to carry out work of a light or sedentary nature, e.g., light house work, office work. Physical Exam Constitutional: She appears well-developed. No distress. HENT: Head: Normocephalic. Eyes: Conjunctivae are normal. No scleral icterus. Neck: Neck supple. Cardiovascular: Normal rate and regular rhythm. Pulmonary/Chest: Effort normal and breath sounds normal. Left mastectomy scar clean and intact with no palpable chest wall nodules or skin lesions Abdominal: Soft. Musculoskeletal: She exhibits no edema. Lymphadenopathy: No palpable adenopathy Neurological: She is alert. Skin: No rash noted. Psychiatric: She has a normal mood and affect. Nursing note and vitals reviewed. 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 Skin extension of disease 3. Stage IC (R3uR6P3) high-grade adenocarcinoma of the left ovary status [...] 4=01/05/2018. She will receive Neulasta locally in [place]. 4. She will get labs weekly on back in [place]. 5. Aloxi and Emend day 1. Nausea [...] she expresses understanding and wishes to proceed in this encounter Plan of Treatment Not on fileas of this encounter Results * CA125 (01/08/2018) Component Value Ref Range CA-125 Specimen Performing Laboratory [facility] [address] , [address] [place] [address] in this encounter Visit Diagnoses Diagnosis Malignant neoplasm of central portion of left breast in female, estrogen receptor negative (HCC) - Primary Ovarian cancer on left (HCC) Malignant neoplasm of ovary
--- OUTSIDE RECORDS SUMMARY | 2018-01-10 11:35 | XMS REPORT | Encounter Summary ---
Author Author [facility] Organization [facility] Address Unknown Phone Unavailable Care Team Providers Care Plugman Name Role Phone Doctor, Miscellaneous Unavailable Unavailable Mitch Benavides MD PCP Reason for Visit * Reason Comments Results Encounter Details Date Type Department Care Team Description 01/08/2018 Telephone [facility] Nitin Pepper MD Results Cancer Center - OP Exam [address] [facility] [id number] [place] [address] [phone] [address] [phone] Social History Tobacco Use Types Packs/Day Years [...] Telephone Encounter - Kaye Watson RN - 01/08/2018 3:14 PM CDT Notified patient that we received her labs from [facility] and she is neutropenic as expected. Her platelets are down to 83K and hgb is 9.7. Inquired if they kumar the CA125 as patient requested and she states that they did but it takes a day or 2 to get a result. in this encounter Plan of Treatment Not on fileas of this encounter Visit Diagnoses Not on filein this encounter
--- OUTSIDE RECORDS SUMMARY | 2018-01-10 11:36 | XMS REPORT | Encounter Summary ---
Author Author [facility] Organization [facility] Address Unknown Phone Unavailable Care Team Providers Care Web Interface Developer Name Role Phone Doctor, Miscellaneous Unavailable Unavailable Mitch Benavides MD PCP Encounter Details Date Type Department Care Team Description 12/26/2017 Orders Only [facility] Kaye Watson RN Malignant neoplasm of Cancer Center - OP Exam central portion of left [address] breast in female, [place], [place] estrogen receptor [address] negative ([facility]) [phone] Social History Tobacco Use Types Packs/Day Years [...] this encounter Results * COMPREHENSIVE METABOLIC PANEL (12/25/2017) Component Value Ref Range Sodium Potassium Chloride CO2 Blood Urea Nitrogen Creatinine Glucose Calcium Total Protein Total Bilirubin Albumin Alk Phosphatase AST (SGOT) ALT (SGPT) eGFR Non eGFR Anion Gap Specimen Performing Laboratory [facility] [address] , [address] [place] [address] * CBC AND DIFF (12/25/2017) Component Value Ref Range White Blood Cells RBC Hemoglobin Hematocrit MCV MCH MCHC Platelet Count MPV RDW Neutrophils Absolute Neutrophil Count Lymphocytes Absolute Lymph Count Monocytes Absolute Monocyte Count Eosinophil Absolute Eosinophil Count Basophils Absolute Basophil Count Atypical Lym Metamyelocyte Myelocyte Promyelocyte Blast RBC Morph WBC Morphology Specimen Performing Laboratory [facility] [address] , [address] [place] [address] in this encounter Visit Diagnoses Diagnosis Malignant neoplasm of central portion of left breast in female, estrogen receptor negative (HCC)
--- OUTSIDE RECORDS SUMMARY | 2018-01-10 11:36 | XMS REPORT | Encounter Summary ---
Author Author [facility] Organization [facility] Address Unknown Phone Unavailable Care Team Providers Care Ropeman Name Role Phone Doctor, Miscellaneous Unavailable Unavailable Mitch Benavides MD PCP Reason for Visit * Reason Comments Care Coordination Encounter Details Date Type Department Care Team Description 12/25/2017 Telephone [facility] Kaye Watson RN Care Coordination Cancer Center - OP Exam [id number] [phone] Social History Tobacco Use Types [...] Telephone Encounter - Kaye Watson RN - 12/25/2017 8:46 AM CDT Patient called to state that she is trying to arrange her radiation therapy at [facility] in [place] and they are requesting records for Dr. Pepper and Dr. Augustine. Gave her the number for the fax for medical records so they can request records from us. She was grateful for the information and denies any further needs. States she just had her labs drawn today and to call her if there were any problems. in this encounter Plan of Treatment Not on fileas of this encounter Visit Diagnoses Not on filein this encounter
--- OUTSIDE RECORDS SUMMARY | 2018-01-10 11:36 | XMS REPORT | Encounter Summary ---
Author Author [facility] Organization [facility] Address Unknown Phone Unavailable Care Team Providers Care Mop Machine Operator Name Role Phone Doctor, Miscellaneous Unavailable Unavailable Mitch Benavides MD PCP Reason for Visit * Reason Comments Heme/Onc Care Encounter Details Date Type Department Care Team Description 12/05/2017 Office Visit [facility] Omayra Ramirez, Malignant neoplasm of Cancer Center - OP Exam ADVERTISING COPYWRITER female breast, [address] [place] [address] receptor status, [id number] unspecified laterality, unspecified site of breast (HCC) (Primary Dx); Malignant neoplasm of central portion of left breast in female, estrogen receptor negative (HCC) Social History Tobacco Use Types Packs/Day Years Used Date Former Smoker Cigarettes 0.25 5 06/13/1966 - 09/02/1969 Smokeless Tobacco: Never Used Alcohol Use Drinks/Week oz/Week Comments No Sex Assigned at Date Recorded Not on file as of this encounter Last Filed Vital Signs Vital Sign Reading Time Taken Blood Pressure 102/66 12/05/2017 2:06 PM CDT Pulse 79 12/05/2017 2:06 PM CDT Temperature 36.8 C (98.2 F) 12/05/2017 2:06 PM CDT Respiratory Rate 14 12/05/2017 2:06 PM CDT Oxygen Saturation 98% 12/05/2017 2:06 PM CDT Inhaled Oxygen - - Concentration Weight 56 kg (123 lb 6.4 oz) 12/05/2017 2:06 PM CDT Height 167.6 cm (5' 6") 12/05/2017 2:06 PM CDT Body Mass Index 19.92 12/05/2017 2:06 PM CDT in this encounter Functional Status Functional Status Response Date of Assessment Does the patient have a hearing impairment: No 11/20/2017 Does the patient have a visual impairment: Yes 11/20/2017 Does the patient have impaired ambulation: No 11/20/2017 Does the patient have an activity of daily living No 11/20/2017 (ADL) impairment: Does the patient have an instrumental activity of No 11/20/2017 daily living (IADL) impairment: Cognitive Status Response Date of Assessment Does the patient have a cognitive impairment: No 11/20/2017 as of this encounter Progress Notes * Omayra Ramirez APRN - 12/05/2017 2:30 PM CDT Formatting of this note may be different from the original. Date of Service: 12/05/2017 Subjective: Reason for Visit: Heme/Onc Care Callie De La Garza is a 77 y.o. female. Cancer Staging Malignant neoplasm of central portion of left breast in female, estrogen receptor negative (HCC) Staging form: Breast, AJCC 7th Edition - Clinical stage from 06/12/2017: Stage IIIC (T2, N3, M0) - Signed by Lidia Valentine APRN-MEDICAL BILLING COORDINATOR on 06/16/2017 - Pathologic stage from 10/14/2017: Stage IIIC (yT4b, N3, cM0) - Signed by Nitin Pepper MD on 10/23/2017 Ovarian cancer on left (HCC) Staging form: Ovary, AJCC 7th Edition - Pathologic stage from 07/05/2015: Stage IC (T1c, N0, cM0) - Signed by Nitin Pepper MD on 06/11/2017 History of Present Illness BRANDEE/BSO along with omentectomy and surgical debulking with Dr. 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 No evidence of distant metastatic disease or florentino disease was discovered. Final pathologic Stage IC ( T1cN0 M0). 2. Adjuvant dose dense carboplatin and paclitaxel for 6 cycles completed November 2015. 3. Palpable left breast mass discovered May 2017. 4. Ultrasound at [facility] 06/05/2017 revealed 3 cm left breast mass with multiple abnormal left axillary nodes. 5. Core needle biopsy 06/05/2017 at [facility] showed grade 3 invasive ductal carcinoma in the breast and left axillary nodes, ER 1%, NY 0%, Her2 2+ with FISH negative (ratio [...] with 20% residual tumor cellularity, ER 0%, NY 0%, HER-2 2+ with negative FISH, Ki-67 68%. 14 of 16 dissected lymph nodes were-positive for metastatic disease, with treatment effect noted in the florentino metastases as well, ER 0%, NY 0%, HER-2 2+ with negative FISH, Ki-67 87%. Several margins were removed from the skin due to-positive margin on the original specimen and eventually margins were clear of obvious disease, but lymphovascular invasion was noted. 9. Restaging PET/CT negative for distant metastatic disease. 10. ddAC x4 planned Interval Summary Callie presents to the clinic today for her cycle 2 of DD AC today. She states that she is doing well and continues on her antibiotics after recent tooth extraction earlier this week. Denies pain at the site, afebrile, without infectious sx, and is ready for her treatment today. Review of Systems Constitutional: Positive for fatigue. HENT: Positive for congestion and dental problem. Eyes: Positive for visual disturbance. Neurological: Positive for tremors and numbness. Psychiatric/Behavioral: Positive for dysphoric mood and [...] to right eye as directed twice daily. clindamycin (CLEOCIN) 150 mg capsule Take 150 mg by mouth four times daily. Take with 8oz of water. dexamethasone (DECADRON) 4 mg tablet Take 2 tablets by mouth daily. On Days 2-4 of each cycle. diltiazem CD (CARDIZEM CD) 180 mg capsule Take 180 mg by mouth daily. escitalopram oxalate (LEXAPRO) 10 mg tablet Take 10 mg by mouth at bedtime daily. lidocaine/prilocaine [...] hours as needed for Nausea or Vomiting. senna/docusate (SENOKOT-S) 8.6/50 mg tablet Take 1 tablet by mouth twice daily. While taking narcotic pain medication Vitals: 04/20/18 1406 BP: 102/66 Pulse: 79 Resp: 14 Temp: 36.8 C (98.2 F) TempSrc: Oral SpO2: 98% Weight: 56 kg (123 lb 6.4 oz) Height: 167.6 cm (66") Body mass index is 19.92 kg/m. Pain Score: Zero Pain Addressed: N/A Patient Evaluated for a Clinical Trial: No treatment clinical trial available for this patient. Eastern Cooperative Oncology Group performance status is 0, Fully active, able to carry on all pre-disease performance without restriction.. Physical Exam Constitutional: She is oriented to person, place, and time. She appears well- developed and well-nourished. No distress. HENT: Head: Normocephalic and atraumatic. Nose: Nose normal. Mouth/Throat: Oropharynx is clear and moist. S/p tooth extraction, without complications today Eyes: Conjunctivae and EOM are normal. Pupils are equal, round, and reactive to light. No scleral icterus. Neck: Normal range of motion. Neck supple. Cardiovascular: Normal rate, regular rhythm and intact distal pulses. Pulmonary/Chest: Effort normal and breath sounds normal. She exhibits no tenderness. ER 1%, NY 0%, Her2 2+ with FISH negative (ratio 1.2, copy number 1.7), Ki-67 75% . S/p left breast mastectomy Abdominal: Soft. Bowel sounds are normal. There is no tenderness. Genitourinary: Genitourinary Comments: H/O ovarian adenocarcinoma -(T1cN0 M0) s/p BRANDEE/BSO Musculoskeletal: Normal range of motion. She exhibits no edema or tenderness. Lymphadenopathy: Head (right side): No submental, no submandibular, no tonsillar, no preauricular, no posterior auricular and no occipital adenopathy present. Head (left side): No submental, no submandibular, no tonsillar, no preauricular, no posterior auricular and no occipital adenopathy present. She has no cervical adenopathy. Right cervical: No superficial cervical, no deep cervical and no posterior cervical adenopathy present. Left cervical: No superficial cervical, no deep cervical and no posterior cervical adenopathy present. She has no axillary adenopathy. Right: No supraclavicular and no epitrochlear adenopathy present. Left: No supraclavicular and no epitrochlear adenopathy present. Neurological: She is alert and oriented to person, place, and time. Skin: Skin is warm and dry. Psychiatric: She has a normal mood and affect. Her behavior is normal. Judgment and thought content normal. Vitals reviewed. 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 Ultrasound at [facility] 06/05/2017 revealed 3 cm left breast mass with multiple abnormal left axillary nodes. Core needle biopsy 06/05/2017 at [facility] showed grade 3 invasive ductal carcinoma in the breast and left axillary nodes, ER 1%, NY 0%, Her2 2+ with FISH negative (ratio 1.2, copy number 1.7), Ki-67 75%. MRI 06/18/2017 revealed no suspicious right breast masses. In the left breast , there are several abnormalities which coalesced into a contiguous mass measuring 6.2 cm in greatest dimension. Multiple morphologically abnormal axillary lymph nodes were also present. There are no suspicious infraclavicular , supraclavicular, or internal mammary nodes noted. Staging PET/CT was negative for distant metastatic disease. Carboplatin/docetaxel x 5 completed 09/2017. Left mastectomy and axillary lymph node dissection with Dr. Lugo 10/14/2017 revealed 6.5 cm primary lesion with direct extension to the skin and treatment effect with 20% residual tumor cellularity, ER 0%, NY 0%, HER-2 2+ with negative FISH, Ki-67 68%. 14 of 16 dissected lymph nodes were-positive for metastatic disease, with treatment effect noted in the florentino metastases as well , ER 0%, NY 0%, HER-2 2+ with negative FISH, Ki-67 87%. Several margins were removed from the skin due to-positive margin on the original specimen and eventually margins were clear of obvious disease, but lymphovascular invasion was noted. Restaging PET/CT negative for distant metastatic disease. ddAC x4 planned Plan: Callie will continue with DD AC, cycle 2 today, followed by neulasta injection locally on Friday the 12/08/17. Heme: Outside cbc/cmp reveiwed and stable today. Will have labs drawn locally, in [place] in one week. Has been prone to cytopenias. Dental Extraction: she had molar extracted earlier this week, and continues with daily clindamycin. No complications s/p extraction. GERD: continues with protonix 40 mg q daily. Will continue to monitor. Nausea: has had intermittent nausea 2/2 chemo, has compazine at home prn. Ovarian adenocarcinoma: Stage IC ([id number]) high-grade adenocarcinoma of the left ovary status post resection BRANDEE/BSO along with omentectomy and surgical debulking with Dr. 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 No evidence of distant metastatic disease or florentino disease was discovered. Final pathologic Stage IC (T1cN0 M0). Adjuvant dose dense carboplatin and paclitaxel for 6 cycles completed November 2015. Continues on observation at this time. RTC on 12/19/17 for next tx cycle. However, if labs and sx suggest she needs to be seen prior to that, we can organize an appointment to see a provider. Call with any new or worsening symptoms in this encounter Plan of Treatment Not on fileas of this encounter Visit Diagnoses Diagnosis Malignant neoplasm of female breast, unspecified estrogen receptor status, unspecified laterality, unspecified site of breast (HCC) - Primary Malignant neoplasm of central portion of left breast in female, estrogen receptor negative (HCC)
--- OUTSIDE RECORDS SUMMARY | 2018-01-10 11:36 | XMS REPORT | Encounter Summary ---
Author Author [facility] Organization [facility] Address Unknown Phone Unavailable Care Team Providers Care Tool And Die Engineer Name Role Phone Doctor, Miscellaneous Unavailable Unavailable Mitch Benavides MD PCP Reason for Visit * Reason Comments Results Encounter Details Date Type Department Care Team Description 12/12/2017 Telephone [facility] Kaye Watson RN Results Cancer Center - OP Exam [address] [address] Social History Tobacco Use Types [...] impairment: No 11/20/2017 as of this encounter Miscellaneous Notes * Telephone Encounter - Kaye Watson RN - 12/12/2017 8:11 AM CDT Patient called to inquire about her labs yesterday. Wondered if we were concerned with her elevated WBC. Informed her it could be related to the neulasta or her recent dental procedure. There are no signs of infection, no fevers. Informed her that I did speak with the nurse practitioner yesterday and was not alarmed with her elevated WBC> Denies any concerns and reports feeling well. in this encounter Plan of Treatment Not on fileas of this encounter Visit Diagnoses Not on filein this encounter
--- OUTSIDE RECORDS SUMMARY | 2018-01-10 11:36 | XMS REPORT | Encounter Summary ---
Author Author [facility] Organization [facility] Address Unknown Phone Unavailable Care Team Providers Care Contact Center Team Lead Name Role Phone Doctor, Miscellaneous Unavailable Unavailable Mitch Benavides MD PCP Reason for Referral * Consult, Test & Treat Status Reason Specialty Diagnoses / Referred By Referred To Procedures Contact Contact No Auth Needed Specialty Oncology Diagnoses Nitin Pepper [facility] [place] [address] [place] [address] central portion [place], [place], [place] [phone] in female, Phone: Phone: estrogen [phone] receptor Fax: negative (HCC) [phone] Reason for Visit * Reason Comments Heme/Onc Care Encounter Details Date Type Department Care Team Description 12/19/2017 Office Visit [facility] Nitin Pepper MD Malignant neoplasm of Cancer Center - OP Exam [address] central portion of left [address] [place] [address] breast in female, [place], [place] [phone] estrogen receptor [phone] negative (HCC) [phone] Social History Tobacco Use Types Packs/Day Years Used Date Former Smoker Cigarettes 0.25 5 06/13/1966 - 09/02/1969 Smokeless Tobacco: Never Used Alcohol Use Drinks/Week oz/Week Comments No Sex Assigned at Date Recorded Not on file as of this encounter Last Filed Vital Signs Vital Sign Reading Time Taken Blood Pressure 100/59 12/19/2017 11:15 AM CDT Pulse 83 12/19/2017 11:15 AM CDT Temperature 36.7 C (98.1 F) 12/19/2017 11:15 AM CDT Respiratory Rate 16 12/19/2017 11:15 AM CDT Oxygen Saturation 100% 12/19/2017 11:15 AM CDT Inhaled Oxygen - - Concentration Weight 54.7 kg (120 lb 9.6 oz) 12/19/2017 11:15 AM CDT Height 167.6 cm (5' 6") 12/19/2017 11:15 AM CDT Body Mass Index 19.47 12/19/2017 11:15 AM CDT in this encounter Functional Status [...] Progress Notes * Nitin Pepper MD - 12/19/2017 11:20 AM CDT Formatting of this note may be different from the original. Name: Callie De La Garza : 1940 AGE : 77 y.o. DATE OF SERVICE: 12/19/2017 Subjective: Reason for Visit: Heme/Onc Care Callie [...] mass discovered May 2017. 4. Ultrasound at [facility] 06/05/2017 revealed 3 cm left breast mass with multiple abnormal left axillary nodes. 5. Core needle biopsy 06/05/2017 at [facility] showed grade 3 invasive ductal carcinoma in the breast and left axillary nodes, ER 1%, [place] 0%, Her2 2+ with FISH negative (ratio [...] with 20% residual tumor cellularity, ER 0%, [place] 0%, HER-2 2+ with negative FISH, Ki-67 68%. 14 of 16 dissected lymph nodes were-positive for metastatic disease, with treatment effect noted in the florentino metastases as well, ER 0%, OR 0%, HER-2 2+ with negative FISH, Ki-67 87%. Several margins were removed from the skin due to-positive margin on the original specimen and eventually margins were clear of obvious disease, but lymphovascular invasion was noted. 9. Restaging PET/CT negative for distant metastatic disease. 10. ddAC x4 started October 2017 Interim History: Doing reasonably well. Days 2-5 are difficult, but by day 7 she is feeling well. Mild nausea, manageable with PO meds. Used ice chips and popsicles during infusion. No mouth sores. No bruising or bleeding. No fevers or infections. Dental extraction went well. No interim infections, hospitalizations or transfusions. There [...] for congestion and rhinorrhea. Eyes: Positive for visual disturbance. Neurological: Positive for tremors and numbness. Psychiatric/Behavioral: Positive for dysphoric mood. The patient is nervous/ anxious. All other systems reviewed and are negative. [...] daily. While taking narcotic pain medication Vitals: 12/19/17 1115 BP: 100/59 Pulse: 83 Resp: 16 Temp: 36.7 C (98.1 F) TempSrc: Oral SpO2: 100% Weight: 54.7 kg (120 lb 9.6 oz) Height: 167.6 cm (66") Body mass index is 19.47 kg/m. Pain Score: Zero Pain Addressed: N/A [...] Receptor Negative (Hcc) Impression: 1. 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 Skin extension of disease 3. Stage IC (R9sH9S3) high-grade adenocarcinoma of the left ovary status [...] Lexapro 14. ECOG PS 1 Plan: 1. Doing well. She had an additional delay in her second cycle of dose dense AC due to a dental infection. She resumed therapy 2 weeks ago. Her second cycle was tolerated well and counts have recovered entirely on a two-week schedule. I am pleasantly surprised by this. 2. Continue ddAC with C3D1=12/19/2017 3. Neulasta day 4=12/22/2017. She will receive Neulasta locally in [place]. 4. She will get labs weekly on back in [place]. 5. Aloxi and Emend day 1. Nausea was well controlled. 6. We will plan for 4 cycles depending on her counts and tolerance. 7. Given her concurrent history of ovarian cancer, she will not qualify for the adjuvant pembrolizumab trial. Adjuvant Xeloda can be considered based on CREATEX data. I am less enthusiastic about Xeloda compared to ddAC, but we will consider it depending upon her overall fitness after completing AC. 8. Continue BID PPI. Her nausea seems most likely from reflux. 9. RTC with me in 2 weeks, or sooner should new or concerning symptoms develop. 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
--- OUTSIDE RECORDS SUMMARY | 2018-01-10 11:36 | XMS REPORT | Encounter Summary ---
Author Author [facility] Organization [facility] Address Unknown Phone Unavailable Care Team Providers Care Senior Program Planner Name Role Phone Doctor, Miscellaneous Unavailable Unavailable Mitch Benavides MD PCP Encounter Details Date Type Department Care Team Description 12/18/2017 Orders Only [facility] Nitin Pepper MD Cancer Center - OP Exam [address] [address] [facility] [address] [place] [address] [phone] [address] [phone] Social History Tobacco Use Types Packs/Day Years [...] impairment: No 11/20/2017 as of this encounter Plan of Treatment Name Priority Associated Diagnoses Date/Time COMPREHENSIVE METABOLIC PANEL Routine 12/18/2017 12:00 AM CDT as of this encounter Results * CBC AND DIFF (12/18/2017) Component Value Ref Range White Blood Cells 6.25 RBC 3.50 Hemoglobin 12.0 Hematocrit 35.7 MCV 102 MCH 34.3 MCHC 33.6 Platelet Count 172 MPV RDW 14.5 Neutrophils 63.7 Absolute Neutrophil Count 3.98 Lymphocytes 18.9 Absolute Lymph Count 1.18 Monocytes 16.3 Absolute Monocyte Count 1.0 Eosinophil 0.5 Absolute Eosinophil Count 0.0 Basophils 0.0 Absolute Basophil Count 0.6 Atypical Lym Metamyelocyte Myelocyte Promyelocyte Blast RBC Morph WBC Morphology Specimen Performing Laboratory [facility] [address] [place] [address] in this encounter Visit Diagnoses Not on filein this encounter
--- OUTSIDE RECORDS SUMMARY | 2018-01-10 11:36 | XMS REPORT | Encounter Summary ---
Author Author [facility] Organization [facility] Address Unknown Phone Unavailable Care Team Providers Care Cost Recorder Name Role Phone Doctor, Miscellaneous Unavailable Unavailable Mitch Benavides MD PCP Encounter Details Date Type Department Care Team Description 12/05/2017 Orders Only [facility] Nitin Pepper MD Malignant neoplasm of Cancer Center - OP Exam [address] central portion of left [address] [place] [address] breast in female, [place], [place] [phone] estrogen receptor [phone] negative (HCC) (Primary [phone] Dx) Social History Tobacco Use Types Packs/Day Years [...]
--- OUTSIDE RECORDS SUMMARY | 2018-01-10 11:36 | XMS REPORT | Encounter Summary ---
Author Author [facility] Organization [facility] Address Unknown Phone Unavailable Care Team Providers Care Review Appraiser Name Role Phone Doctor, Miscellaneous Unavailable Unavailable Mitch Benavides MD PCP Reason for Visit * Reason Comments Heme/Onc Care * Treatment (Routine) Status Reason Specialty Diagnoses / Referred By Referred To Procedures Contact Contact Authorized Hematology and Diagnoses Nitin Pepper Marc S, Oncology Malignant [place] [address] central portion [place], [place] of left breast [id number] in female, Phone: Phone: estrogen [phone] receptor Fax: negative (HCC) [phone] P rocedures DOXORUBICIN + CYCLOPHOSPHAMIDE Encounter Details Date Type Department Care Team Description 12/19/2017 [facility] Nitin Pepper [place] [address] [place] [address] [phone] [place] [address] Social History Tobacco Use Types [...] encounter Discharge Instructions * Patient Instructions - Jaclyn White RN - 12/19/2017 3:19 PM CDT Call Immediately to report the following: Uncontrolled nausea and/or vomiting, uncontrolled pain, or unusual bleeding. Temperature of 100.4 F or greater and/or any sign/symptom of infection (redness , warmth, tenderness) Painful mouth or difficulty swallowing Red, cracked, or painful hands and/or feet Diarrhea Swelling of arms or legs Rash Important Phone Numbers: Cancer Center Main Number (answered 24 hours a day) [phone] Cancer Center Scheduling (appointments) [phone] OR [phone] Cancer [facility] (for nutritional supplements) [phone] Port Maintenance - If you have a port, it should be flushed every 6-8 weeks when not in use. Please check with your MD, nurse, or the forest fire management officer. in this encounter Medications at Time of [...] as needed for Nausea or Vomiting. senna/docusate Take 1 tablet by mouth 30 tablet 1 10/15/2017 (SENOKOT-S) 8.6/50 mg twice daily. While taking tablet narcotic pain medication as of this encounter Progress Notes * Jaclyn White RN - 12/19/2017 2:32 PM CDT Pt here for treatment. Pt with , states she feels well. Labs reviewed, pt has seen Dr. Pepper. Port accessed, pt tolerated well. CHEMO NOTE Verified chemo consent signed and in chart. Verified initiate chemo order in O2 Blood return positive via: Port (Single) BSA and dose double checked (agree with orders as written) with: yes Labs/applicable tests checked: CBC and Comprehensive Metabolic Panel (CMP) Chemo regime: AC cycle 3 day 1 Rate verified and armband double checkwith second RN: yes Patient education offered and stated understanding. Denies questions at this time. Pt tolerated treatment well. Port packed with heparin and deaccessed. Pt discharged in stable, ambulatory condition. in this encounter Miscellaneous Notes * Addendum Note - Cony Mauro - 12/19/2017 11:59 PM CDT Encounter addended by: Cony Mauro on: 12/25/2017 2:28 PM
Actions taken: Charge Capture section accepted in this encounter Plan of Treatment Not on fileas of this encounter Visit Diagnoses Diagnosis Malignant neoplasm of central portion of left breast in female, estrogen receptor negative (HCC) Administered Medications Medication Order MAR Action Action Date Dose Rate Site cyclophosphamide (CYTOXAN) 960 mg in Given - New 12/19/2017 960 mg 596 mL/hr sodium chloride 0.9% (NS) 298 mL IVPB Bag 13:35 CDT 960 mg (rounded from 972 oq=941 mg/m2 1.62 m2 Treatment plan recorded BSA), Intravenous, 298 mL, Administer over 0.5 Hours, ONCE, 1 dose, Fri12/19/17 at 1245, NURSING: To be administered by Chemotherapy Competency-validated nurse. NOTE: This is a HIGH ALERT Medication. SPECIAL TUBING REQUIRED dexamethasone (DECADRON) tablet 12 mg Given 12/19/2017 12 mg 12 mg, Oral, ONCE, 1 dose, Fri12/19/17 at 12:23 CDT 1215 DOXOrubicin (ADRIAMYCIN) injection 97.2 Given 12/19/2017 97.2 mg mg 13:28 CDT 97.2 mg (60 mg/m2 1.62 m2 Treatment plan recorded BSA), Intravenous, ONCE, 1 dose, Fri12/19/17 at 1245, Give IV Push over 3-5 minutes. PROTECT FROM LIGHT NURSING: To be administered by Chemotherapy Competency-validated nurse. NOTE: This is a HIGH ALERT Medication. SPECIAL TUBING REQUIRED fosaprepitant (EMEND) 150 mg in sodium Given - New 12/19/2017 150 mg 450 mL/hr chloride 0.9% (NS) 150 mL IVPB Bag 12:25 CDT 150 mg, Intravenous, 150 mL, Administer over 20 Minutes, ONCE, 1 dose, Fri12/19/17 at 1215 heparin lock flush PF syringe 500 Units Given 12/19/2017 500 Units 500 Units, Intravenous, ONCE, 1 dose, 14:15 CDT Fri12/19/17 at 1345, NOTE: This is a HIGH ALERT Medication. palonosetron(+) (ALOXI) injection 0.25 Given 12/19/2017 0.25 mg mg 12:23 CDT 0.25 mg, Intravenous, ONCE, 1 dose, Fri12/19/17 at 1215 in this encounter
--- OUTSIDE RECORDS SUMMARY | 2018-01-10 11:36 | XMS REPORT | Encounter Summary ---
Author Author [facility] Organization [facility] Address Unknown Phone Unavailable Care Team Providers Care Flowers Salesperson Name Role Phone Doctor, Miscellaneous Unavailable Unavailable Mitch Benavides MD PCP Encounter Details Date Type Department Care Team Description 12/11/2017 Orders Only [facility] Kaye Watson RN Malignant neoplasm of Cancer Center - OP Exam central portion of left [address] breast in female, [place], [place] estrogen receptor [phone] negative ([facility]) [phone] Social History Tobacco Use Types Packs/Day Years [...] this encounter Results * COMPREHENSIVE METABOLIC PANEL (12/11/2017) Component Value Ref Range Sodium Potassium Chloride CO2 Blood Urea Nitrogen Creatinine Glucose Calcium Total Protein Total Bilirubin Albumin Alk Phosphatase AST (SGOT) ALT (SGPT) eGFR Non eGFR Anion Gap Specimen Performing Laboratory [facility] [address] , [address] [place] [address] * CBC AND DIFF (12/11/2017) Component Value Ref Range White Blood Cells RBC Hemoglobin Hematocrit MCV MCH MCHC Platelet Count MPV RDW Neutrophils Absolute Neutrophil Count Lymphocytes Absolute Lymph Count Monocytes Absolute Monocyte Count Eosinophil Absolute Eosinophil Count Basophils Absolute Basophil Count Atypical Lym Metamyelocyte Myelocyte Promyelocyte Blast RBC Morph WBC Morphology Specimen Performing Laboratory [facility] [address] , [address] [place] [address] in this encounter Visit Diagnoses Diagnosis Malignant neoplasm of central portion of left breast in female, estrogen receptor negative (HCC)
--- OUTSIDE RECORDS SUMMARY | 2018-01-10 11:36 | XMS REPORT | Encounter Summary ---
Author Author [facility] Organization [facility] Address Unknown Phone Unavailable Care Team Providers Care Records Management Coordinator Name Role Phone Doctor, Miscellaneous Unavailable Unavailable Mitch Benavides MD PCP Reason for Visit * Reason Comments Care Coordination review labs for tomorrow's treatment Encounter Details Date Type Department Care Team Description 12/18/2017 Telephone [facility] Nitin Pepper MD Care Coordination (review Cancer Center - OP Exam [id number] [place] [address] labs for tomorrow's [address] [place] [address] treatment) [place], [place] [phone] [address] [phone] Social History Tobacco Use Types Packs/Day Years [...] encounter Miscellaneous Notes * Telephone Encounter - Dorene Pillai RN - 12/18/2017 5:14 PM CDT Patient called to review ANC for tomorrow's treatment. Dr. Pepper reviewed results and indicated she was fine to move forward with treatment as scheduled tomorrow. Reviewed appointment time with patient. No further questions at this time. in this encounter Plan of Treatment Not on fileas of this encounter Visit Diagnoses Not on filein this encounter
--- OUTSIDE RECORDS SUMMARY | 2018-01-10 11:37 | XMS REPORT | Encounter Summary ---
Author Author [facility] Organization [facility] Address Unknown Phone Unavailable Care Team Providers Care Tire Beader Maker Name Role Phone Doctor, Miscellaneous Unavailable Unavailable Mitch Benavides MD PCP Reason for Visit * Reason Comments Results Encounter Details Date Type Department Care Team Description 11/27/2017 Telephone [facility] Kaye Watson RN Results Cancer Center - OP Exam [address] [address] Social History Tobacco Use Types [...] Telephone Encounter - Kaye Watson RN - 11/27/2017 10:44 AM CDT Called patient to let her know that her labs drawn today were good and she would be able to receive treatment tomorrow. However, patient informed me that she saw the dentist due to pain and was found to have an abscessed tooth around a bridge. She is currently on cleomycin for the infection. Recommended to either have a root canal or tooth extraction. Patient wanting to know what our advice for this was given the circumstances of treatment. in this encounter Plan of Treatment Not on fileas of this encounter Visit Diagnoses Not on filein this encounter
--- OUTSIDE RECORDS SUMMARY | 2018-01-10 11:37 | XMS REPORT | Encounter Summary ---
Author Author [facility] Organization [facility] Address Unknown Phone Unavailable Care Team Providers Care Assistant Accounting Manager Name Role Phone Doctor, Miscellaneous Unavailable Unavailable Mitch Benavides MD PCP Reason for Visit * Reason Comments Chemotherapy Encounter Details Date Type Department Care Team Description 12/04/2017 Telephone [facility] Kaye Watson RN Chemotherapy Cancer Center - OP Exam [address] [address] Social History Tobacco Use Types [...] Telephone Encounter - Kaye Watson RN - 12/04/2017 8:58 AM CDT Patient called to check if she needed to continue on the antibiotic past 10 days due to her dental procedure. Told her 10 days should be sufficient but we would check her labs to ensure that was ok. Will plan for treatment tomorrow if labs remain stable in this encounter Plan of Treatment Not on fileas of this encounter Visit Diagnoses Not on filein this encounter
--- OUTSIDE RECORDS SUMMARY | 2018-01-10 11:37 | XMS REPORT | Encounter Summary ---
Author Author [facility] Organization [facility] Address Unknown Phone Unavailable Care Team Providers Care Cartridge Gauger Name Role Phone Doctor, Miscellaneous Unavailable Unavailable Mitch Benavides MD PCP Reason for Visit * Reason Comments Procedure tooth abscess Encounter Details Date Type Department Care Team Description 11/27/2017 Telephone The [facility] Kaye Watson RN Procedure (tooth abscess) Cancer Center - OP Exam [address] [address] Social History Tobacco Use Types [...] Encounter - Kaye Watson RN - 11/27/2017 1:22 PM CDT Informed patient that if she can have dental procedure completed for tooth abscess reasonably soon that we could defer her treatment x 1 week to have dental extraction performed. She states she will attempt to have this completed reasonably soon. Reports her dentist wants to have her on an extended course of antibiotics due to her current immune status which Dr. Evgeny is in agreement with. in this encounter Plan of Treatment Not on fileas of this encounter Visit Diagnoses Not on filein this encounter
--- OUTSIDE RECORDS SUMMARY | 2018-01-10 11:37 | XMS REPORT | Encounter Summary ---
Author Author [facility] Organization [facility] Address Unknown Phone Unavailable Care Team Providers Care Home Demonstration Agent Name Role Phone Doctor, Miscellaneous Unavailable Unavailable Mitch Benavides MD PCP Reason for Visit * Reason Comments Medication Refill Encounter Details Date Type Department Care Team Description 12/03/2017 Refill [facility] Nitin Pepper MD Cancer Center - OP Exam [address] [address] [place] [address], [place] [address] [place] [address] [phone] [address] [phone] Social History Tobacco Use Types Packs/Day Years [...]
--- OUTSIDE RECORDS SUMMARY | 2018-01-10 11:37 | XMS REPORT | Encounter Summary ---
Author Author [facility] Organization [facility] Address Unknown Phone Unavailable Care Team Providers Care Jumpbasting Collar Baster Name Role Phone Doctor, Miscellaneous Unavailable Unavailable Mitch Benavides MD PCP Encounter Details Date Type Department Care Team Description 11/27/2017 Orders Only [facility] Kaye Watson RN Malignant neoplasm of Cancer Center - OP Exam central portion of left [address] breast in female, [place], [place] estrogen receptor [phone] negative ([facility]) [phone] Social History Tobacco Use Types Packs/Day Years [...] this encounter Results * COMPREHENSIVE METABOLIC PANEL (11/27/2017) Component Value Ref Range Sodium Potassium Chloride CO2 Blood Urea Nitrogen Creatinine Glucose Calcium Total Protein Total Bilirubin Albumin Alk Phosphatase AST (SGOT) ALT (SGPT) eGFR Non eGFR Anion Gap Specimen Performing Laboratory [facility] [address] , [address] [place] [address] * CBC AND DIFF (11/27/2017) Component Value Ref Range White Blood Cells RBC Hemoglobin Hematocrit MCV MCH MCHC Platelet Count MPV RDW Neutrophils Absolute Neutrophil Count Lymphocytes Absolute Lymph Count Monocytes Absolute Monocyte Count Eosinophil Absolute Eosinophil Count Basophils Absolute Basophil Count Atypical Lym Metamyelocyte Myelocyte Promyelocyte Blast RBC Morph WBC Morphology Specimen Performing Laboratory [facility] [address] , [address] [place] [address] in this encounter Visit Diagnoses Diagnosis Malignant neoplasm of central portion of left breast in female, estrogen receptor negative (HCC)
--- OUTSIDE RECORDS SUMMARY | 2018-01-10 11:37 | XMS REPORT | Encounter Summary ---
Author Author [facility] Organization [facility] Address Unknown Phone Unavailable Care Team Providers Care Energy Director Name Role Phone Doctor, Miscellaneous Unavailable Unavailable Mitch Benavides MD PCP Reason for Visit * Reason Comments Heme/Onc Care Encounter Details Date Type Department Care Team Description 11/20/2017 Office Visit [facility] Nitin Pepper MD Malignant neoplasm of Cancer Center - OP Exam [address] central portion of left [address] [place] [address] breast in female, [place] [phone] estrogen receptor [phone] negative (HCC) [phone] Social History Tobacco Use Types Packs/Day Years Used Date Former Smoker Cigarettes 0.25 5 06/13/1966 - 09/02/1969 Smokeless Tobacco: Never Used Alcohol Use Drinks/Week oz/Week Comments No Sex Assigned at Date Recorded Not on file as of this encounter Last Filed Vital Signs Vital Sign Reading Time Taken Blood Pressure 101/60 11/20/2017 10:00 AM CDT Pulse 85 11/20/2017 10:00 AM CDT Temperature 37 C (98.6 F) 11/20/2017 10:00 AM CDT Respiratory Rate 16 11/20/2017 10:00 AM CDT Oxygen Saturation 99% 11/20/2017 10:00 AM CDT Inhaled Oxygen - - Concentration Weight 54.4 kg (120 lb) 11/20/2017 10:00 AM CDT Height 167.6 cm (5' 5.98") 11/20/2017 10:00 AM CDT Body Mass Index 19.38 11/20/2017 10:00 AM CDT in this encounter Functional Status [...] Progress Notes * Nitin Pepper MD - 11/20/2017 10:20 AM CDT Formatting of this note may be different from the original. Name: Callie De La Garza : 1940 AGE : 77 y.o. DATE OF SERVICE: 11/20/2017 Subjective: Reason for Visit: Heme/Onc Care Callie [...] No evidence of distant metastatic disease or floerntino disease was discovered. Final pathologic Stage IC (T1cN0 M0). 2. Adjuvant dose dense carboplatin and paclitaxel for 6 cycles completed November 2015. 3. Palpable left breast mass discovered May 2017. 4. Ultrasound at [facility] 06/05/2017 revealed 3 cm left breast mass with multiple abnormal left axillary nodes. 5. Core needle biopsy 06/05/2017 at [facility] showed grade 3 invasive ductal carcinoma in the breast and left axillary nodes, ER 1%, NJ 0%, Her2 2+ with FISH negative (ratio [...] with 20% residual tumor cellularity, ER 0%, NJ 0%, HER-2 2+ with negative FISH, Ki-67 68%. 14 of 16 dissected lymph nodes were-positive for metastatic disease, with treatment effect noted in the florentino metastases as well, ER 0%, NJ 0%, HER-2 2+ with negative FISH, Ki-67 87%. Several margins were removed from the skin due to-positive margin on the original specimen and eventually margins were clear of obvious disease, but lymphovascular invasion was noted. 9. Restaging PET/CT negative for distant metastatic disease. 10. ddAC x4 planned Interim History: "I did OK." Mild nausea, manageable with PO meds. Vomited once at Easter - thinks related to stress. Used ice chips and popsicles during infusion. No mouth sores. No bruising or bleeding. No fevers or infections. No interim infections, hospitalizations or [...] Constitutional: Positive for fatigue. HENT: Positive for rhinorrhea and sneezing. Eyes: Positive for visual disturbance. Neurological: Positive for tremors, light-headedness and numbness. Psychiatric/Behavioral: Positive for decreased concentration, dysphoric mood and sleep disturbance. The patient is nervous/anxious. All other systems reviewed and are negative. [...] 10/15/[address] (PROTONIX) 40 mg tablet Take 1 tablet by mouth twice daily. pegfilgrastim (NEULASTA) 6 mg/0.6 mL syringe Inject 0.6 mL under the skin as directed. Every 2 weeks x 4 doses with first dose on 11/10/17 prochlorperazine maleate (COMPAZINE) 10 mg tablet Take 1 tablet by mouth every 6 hours as needed for Nausea or Vomiting. senna/docusate (SENOKOT-S) 8.6/50 mg tablet Take 1 tablet by mouth twice daily. While taking narcotic pain medication Vitals: 11/20/17 1000 BP: 101/60 Pulse: 85 Resp: 16 Temp: 37 C (98.6 F) TempSrc: Oral SpO2: 99% Weight: 54.4 kg (120 lb) Height: 167.6 cm (65.98") Body mass index is 19.38 kg/m. Pain Score: Zero Pain Addressed: N/A Patient Evaluated for a Clinical Trial: Patient currently in screening for a treatment clinical trial. Eastern Cooperative Oncology Group performance status is [...] Soft. Musculoskeletal: She exhibits no edema. Lymphadenopathy: Thickness in scar bed in deep left axilla, mildly tender. There is no clearly palpable mass or adenopathy. Neurological: She is alert. Skin: No rash noted. Psychiatric: She has a normal mood and affect. Nursing note and vitals reviewed. 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 Skin extension of disease 3. 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 Doing well. She tolerated her first cycle of dose dense AC surprisingly well without any significant physical symptoms. However, she has developed significant cytopenias and her platelets are 40,000 today. We will need to hold today's planned dose of AC. 2. I have let her know that I would be surprised if we were able to provide her with every 2 week dosing of the AC moving forward. She will likely need to have a dose every 3 weeks. She is becoming reliably cytopenic between cycles and will definitely need growth factor support. 3. She will get labs weekly on back in [place]. Once her blood counts are acceptable, we will schedule her for her next cycle of therapy on Friday. She receives her Neulasta locally on Mondays and . 4. Aloxi and Emend day 1. Nausea was well controlled. 5. We will plan for 4 cycles depending on her counts and tolerance. 6. Given her concurrent history of ovarian cancer, she will not qualify for the adjuvant pembrolizumab trial. Adjuvant Xeloda can be considered based on CREATEX data. I am less enthusiastic about Xeloda compared to ddAC, but we will consider it depending upon her overall fitness after completing AC. 7. Continue BID PPI. Her nausea seems most likely from reflux. 8. We will schedule return visits and chemotherapy depending upon her labs per above, or sooner if new or concerning issues develop. I have discussed the diagnosis and treatment plan with the patient and she expresses understanding and wishes to proceed in this encounter Plan of Treatment Name Priority Associated Diagnoses Order Schedule CBC AND DIFF Routine Malignant neoplasm of Weekly for 9 Occurrences central portion of left starting 11/27/2017 until breast in female, 05/22/2018, 5 completed estrogen receptor negative (HCC) COMPREHENSIVE METABOLIC PANEL Routine Malignant neoplasm of Weekly for 9 Occurrences central portion of left starting 11/27/2017 until breast in female, 05/22/2018, 5 completed estrogen receptor negative (HCC) as of this encounter Results * COMPREHENSIVE METABOLIC PANEL (01/08/2018) Component Value Ref Range Sodium Potassium Chloride CO2 Blood Urea Nitrogen Creatinine Glucose Calcium Total Protein Total Bilirubin Albumin Alk Phosphatase AST (SGOT) ALT (SGPT) eGFR Non eGFR Anion Gap Specimen Performing Laboratory [facility] [address] [address] * CBC AND DIFF (01/08/2018) Component Value Ref Range White Blood Cells RBC Hemoglobin Hematocrit MCV MCH MCHC Platelet Count MPV RDW Neutrophils Absolute Neutrophil Count Lymphocytes Absolute Lymph Count Monocytes Absolute Monocyte Count Eosinophil Absolute Eosinophil Count Basophils Absolute Basophil Count Atypical Lym Metamyelocyte Myelocyte Promyelocyte Blast RBC Morph WBC Morphology Specimen Performing Laboratory [facility] [address] [address] * COMPREHENSIVE METABOLIC PANEL (01/01/2018) Component Value Ref Range Sodium Potassium Chloride CO2 Blood Urea Nitrogen Creatinine Glucose Calcium Total Protein Total Bilirubin Albumin Alk Phosphatase AST (SGOT) ALT (SGPT) eGFR Non eGFR Anion Gap Specimen Performing Laboratory [facility] [address] [address] * CBC AND DIFF (01/01/2018) Component Value Ref Range White Blood Cells RBC Hemoglobin Hematocrit MCV MCH MCHC Platelet Count MPV RDW Neutrophils Absolute Neutrophil Count Lymphocytes Absolute Lymph Count Monocytes Absolute Monocyte Count Eosinophil Absolute Eosinophil Count Basophils Absolute Basophil Count Atypical Lym Metamyelocyte Myelocyte Promyelocyte Blast RBC Morph WBC Morphology Specimen Performing Laboratory [facility] [address] [address] * COMPREHENSIVE METABOLIC PANEL (12/25/2017) Component Value Ref Range Sodium Potassium Chloride CO2 Blood Urea Nitrogen Creatinine Glucose Calcium Total Protein Total Bilirubin Albumin Alk Phosphatase AST (SGOT) ALT (SGPT) eGFR Non eGFR Anion Gap Specimen Performing Laboratory [facility] [address] [address] * CBC AND DIFF (12/25/2017) Component Value Ref Range White Blood Cells RBC Hemoglobin Hematocrit MCV MCH MCHC Platelet Count MPV RDW Neutrophils Absolute Neutrophil Count Lymphocytes Absolute Lymph Count Monocytes Absolute Monocyte Count Eosinophil Absolute Eosinophil Count Basophils Absolute Basophil Count Atypical Lym Metamyelocyte Myelocyte Promyelocyte Blast RBC Morph WBC Morphology Specimen Performing Laboratory [facility] [address] [address] * COMPREHENSIVE METABOLIC PANEL (12/11/2017) Component Value Ref Range Sodium Potassium Chloride CO2 Blood Urea Nitrogen Creatinine Glucose Calcium Total Protein Total Bilirubin Albumin Alk Phosphatase AST (SGOT) ALT (SGPT) eGFR Non eGFR Anion Gap Specimen Performing Laboratory [facility] [address] [address] * CBC AND DIFF (12/11/2017) Component Value Ref Range White Blood Cells RBC Hemoglobin Hematocrit MCV MCH MCHC Platelet Count MPV RDW Neutrophils Absolute Neutrophil Count Lymphocytes Absolute Lymph Count Monocytes Absolute Monocyte Count Eosinophil Absolute Eosinophil Count Basophils Absolute Basophil Count Atypical Lym Metamyelocyte Myelocyte Promyelocyte Blast RBC Morph WBC Morphology Specimen Performing Laboratory [facility] [place] [address] [facility] , [address] [address] * COMPREHENSIVE METABOLIC PANEL (12/04/2017) Component Value Ref Range Sodium Potassium Chloride CO2 Blood Urea Nitrogen Creatinine Glucose Calcium Total Protein Total Bilirubin Albumin Alk Phosphatase AST (SGOT) ALT (SGPT) eGFR Non eGFR Anion Gap Specimen Performing Laboratory [facility] [place] [address] [facility] , [address] [address] * CBC AND DIFF (12/04/2017) Component Value Ref Range White Blood Cells RBC Hemoglobin Hematocrit MCV MCH MCHC Platelet Count MPV RDW Neutrophils Absolute Neutrophil Count Lymphocytes Absolute Lymph Count Monocytes Absolute Monocyte Count Eosinophil Absolute Eosinophil Count Basophils Absolute Basophil Count Atypical Lym Metamyelocyte Myelocyte Promyelocyte Blast RBC Morph WBC Morphology Specimen Performing Laboratory [facility] [address] , [address] [address] in this encounter Visit Diagnoses Diagnosis Malignant neoplasm of central portion of left breast in female, estrogen receptor negative (HCC)
--- OUTSIDE RECORDS SUMMARY | 2018-01-10 11:37 | XMS REPORT | Encounter Summary ---
Author Author [facility] Organization [facility] Address Unknown Phone Unavailable Care Team Providers Care Coordinator Of Genetic Services Name Role Phone Doctor, Miscellaneous Unavailable Unavailable Mitch Benavides MD PCP Encounter Details Date Type Department Care Team Description 12/04/2017 Orders Only [facility] Kaye Watson RN Malignant neoplasm of Cancer Center - OP Exam central portion of left [address] breast in female, [place], [place] estrogen receptor [id number] negative ([facility]) [phone] Social History Tobacco Use Types Packs/Day Years [...] this encounter Results * COMPREHENSIVE METABOLIC PANEL (12/04/2017) Component Value Ref Range Sodium Potassium Chloride CO2 Blood Urea Nitrogen Creatinine Glucose Calcium Total Protein Total Bilirubin Albumin Alk Phosphatase AST (SGOT) ALT (SGPT) eGFR Non eGFR Anion Gap Specimen Performing Laboratory [facility] [address] , [address] [place] [address] * CBC AND DIFF (12/04/2017) Component Value Ref Range White Blood Cells RBC Hemoglobin Hematocrit MCV MCH MCHC Platelet Count MPV RDW Neutrophils Absolute Neutrophil Count Lymphocytes Absolute Lymph Count Monocytes Absolute Monocyte Count Eosinophil Absolute Eosinophil Count Basophils Absolute Basophil Count Atypical Lym Metamyelocyte Myelocyte Promyelocyte Blast RBC Morph WBC Morphology Specimen Performing Laboratory [facility] [address] , [address] [place] [address] in this encounter Visit Diagnoses Diagnosis Malignant neoplasm of central portion of left breast in female, estrogen receptor negative (HCC)
--- OUTSIDE RECORDS SUMMARY | 2018-01-10 11:37 | XMS REPORT | Encounter Summary ---
Author Author [facility] Organization [facility] Address Unknown Phone Unavailable Care Team Providers Care Extruder Name Role Phone Doctor, Miscellaneous Unavailable Unavailable Mitch Benavides MD PCP Encounter Details Date Type Department Care Team Description 11/21/2017 Orders Only [facility] Cami Aguilar APRN Cancer Center - OP Exam [address] [address] [place] [address] [phone] [phone] Social History Tobacco Use Types Packs/Day Years [...]
--- OUTSIDE RECORDS SUMMARY | 2018-01-10 11:37 | XMS REPORT | Encounter Summary ---
Author Author [facility] Organization [facility] Address Unknown Phone Unavailable Care Team Providers Care Fuel Cell Builder Name Role Phone Doctor, Miscellaneous Unavailable Unavailable Mitch Benavides MD PCP Reason for Visit * Reason Comments Medication Refill Encounter Details Date Type Department Care Team Description 12/04/2017 Refill [facility] Nitin Pepper MD Cancer Center - OP Exam [address] [address] [place] [address], [place] [address] [place] [address] [phone] [address] [phone] Social History Tobacco Use Types Packs/Day Years [...]
--- OUTSIDE RECORDS SUMMARY | 2018-01-10 11:37 | XMS REPORT | Encounter Summary ---
Author Author [facility] Organization [facility] Address Unknown Phone Unavailable Care Team Providers Care Gas Truck Driver Name Role Phone Doctor, Miscellaneous Unavailable Unavailable Mitch Benavides MD PCP Reason for Visit * Reason Comments Heme/Onc Care * Treatment (Routine) Status Reason Specialty Diagnoses / Referred By Referred To Procedures Contact Contact Authorized Hematology and Diagnoses Nitin Pepper Marc S, Oncology Malignant [place] [address] central portion [place], [place], [place] [phone] in female, Phone: Phone: estrogen [phone] receptor Fax: negative (HCC) [phone] P rocedures DOXORUBICIN + CYCLOPHOSPHAMIDE Encounter Details Date Type Department Care Team Description 12/05/2017 [facility] Omayra Ramirez, [facility] - OP FARM AGENT Treatment [address] [place] [address] [place] [phone] Social History Tobacco Use Types Packs/Day Years [...] impairment: No 11/20/2017 as of this encounter Discharge Instructions * Patient Instructions - Bindu Daley RN - 12/05/2017 4:27 PM CDT Call Immediately to report the following: Uncontrolled nausea and/or vomiting, uncontrolled pain, or unusual bleeding. Temperature of 100.4 F or greater and/or any sign/symptom of infection (redness , warmth, tenderness) Painful mouth or difficulty swallowing Red, cracked, or painful hands and/or feet Diarrhea Swelling of arms or legs Rash Important Phone Numbers: Cancer Center Main Number (answered 24 hours a day) [phone] Cancer Center Scheduling (appointments) [phone] OR [phone] [facility] (for nutritional supplements) [phone] Port Maintenance - If you have a port, it should be flushed every 6-8 weeks when not in use. Please check with your MD, nurse, or the flight crew scheduler. in this encounter Medications at Time of [...] daily. While taking tablet narcotic pain medication clindamycin (CLEOCIN) 150 Take 150 mg by mouth four 11/26/20172017 mg capsule times daily. Take with 8oz of water. as of this encounter Progress Notes * Bindu Daley, STEVEN - 12/05/2017 4:40 PM CDT Cycle 2, Day 1 AC Port accessed per protocol, brisk blood return. Patient to follow up with TONI Castillo. OK to treat, labs OK to treat. Tolerated IVP Burke well including blood return return checked per protocol. Tolerated Cytoxan well. Port de-accessed per protocol, heparinized. Discharged in stable condition with . CHEMO NOTE Verified chemo consent signed and in chart. Verified initiate chemo order in O2 Blood return positive via: Port (Single and Accessed) BSA and dose double checked (agree with orders as written) with: yes Labs/applicable tests checked: CBC and Comprehensive Metabolic Panel (CMP) Chemo regime: Drug/cycle/day AC C2 D1 Rate verified and armband double checkwith second RN: yes Patient education offered and stated understanding. Denies questions at this time. in this encounter Miscellaneous Notes * Addendum Note - Bindu Daley RN - 12/05/2017 11:59 PM CDT Encounter addended by: Bindu Daley RN on: 01/01/2018 10:59 AM
Actions taken: Sign clinical note * Addendum Note - Katiana Earl - 12/05/2017 11:59 PM CDT Encounter addended by: Katiana Earl on: 12/11/2017 9:31 AM
Actions taken: Charge Capture section accepted in this encounter Plan of Treatment Not on fileas of this encounter Visit Diagnoses Diagnosis Malignant neoplasm of central portion of left breast in female, estrogen receptor negative (HCC) Administered Medications Medication Order MAR Action Action Date Dose Rate Site cyclophosphamide (CYTOXAN) 960 mg in Given - New 12/05/2017 960 mg 596 mL/hr sodium chloride 0.9% (NS) 298 mL IVPB Bag 16:00 CDT 960 mg (rounded from 972 cl=670 mg/m2 1.62 m2 Treatment plan recorded BSA), Intravenous, 298 mL, Administer over 0.5 Hours, ONCE, 1 dose, Fri12/05/17 at 1515, NURSING: To be administered by Chemotherapy Competency-validated nurse. NOTE: This is a HIGH ALERT Medication. SPECIAL TUBING REQUIRED dexamethasone (DECADRON) tablet 12 mg Given 12/05/2017 12 mg 12 mg, Oral, ONCE, 1 dose, Fri12/05/17 14:48 CDT at 1445 DOXOrubicin (ADRIAMYCIN) injection 97.2 Given 12/05/2017 97.2 mg mg 15:47 CDT 97.2 mg (60 mg/m2 1.62 m2 Treatment plan recorded BSA), Intravenous, ONCE, 1 dose, Fri12/05/17 at 1515, Give IV Push over 3-5 minutes. PROTECT FROM LIGHT NURSING: To be administered by Chemotherapy Competency-validated nurse. NOTE: This is a HIGH ALERT Medication. SPECIAL TUBING REQUIRED fosaprepitant (EMEND) 150 mg in sodium Given - New 12/05/2017 150 mg 450 mL/hr chloride 0.9% (NS) 150 mL IVPB Bag 14:52 CDT 150 mg, Intravenous, 150 mL, Administer over 20 Minutes, ONCE, 1 dose, Fri12/05/17 at 1445 heparin lock flush PF syringe 500 Units Given 12/05/2017 500 Units 500 Units, Intra-catheter, ONCE, 1 dose, 16:35 CDT Fri12/05/17 at 1630, NOTE: This is a HIGH ALERT Medication. palonosetron(+) (ALOXI) injection 0.25 Given 12/05/2017 0.25 mg mg 14:48 CDT 0.25 mg, Intravenous, ONCE, 1 dose, Fri12/05/17 at 1445 in this encounter
--- OUTSIDE RECORDS SUMMARY | 2018-01-10 11:37 | XMS REPORT | Encounter Summary ---
Author Author [facility] Organization [facility] Address Unknown Phone Unavailable Care Team Providers Care Asset Coordinator Name Role Phone Doctor, Miscellaneous Unavailable Unavailable Mitch Benavides MD PCP Reason for Visit * Reason Comments Care Coordination labs locally at [facility] Encounter Details Date Type Department Care Team Description 11/20/2017 Telephone [facility] Kaye Watson RN Care Coordination ([facility] - OP Exam locally at [facility]) [id number] [place] [id number] Social History Tobacco Use Types Packs/Day [...] Telephone Encounter - Kaye Watson RN - 11/20/2017 11:46 AM CDT Faxed orders for weekly labs on to [facility] locally at [phone], in this encounter Plan of Treatment Not on fileas of this encounter Visit Diagnoses Not on filein this encounter
--- OUTSIDE RECORDS SUMMARY | 2018-01-10 11:38 | XMS REPORT | Encounter Summary ---
Author Author [facility] Organization [facility] Address Unknown Phone Unavailable Care Team Providers Care Gold Tooler Name Role Phone Doctor, Miscellaneous Unavailable Unavailable Mitch Benavides MD PCP Encounter Details Date Type Department Care Team Description 11/14/2017 [facility] Cami Aguilar APRN Encounter Cancer Center - OP Lab [id number] [place] [id number] [place] [address] [phone] Social History Tobacco Use Types Packs/Day Years Used Date Former Smoker Cigarettes 0.25 5 06/13/1966 - 09/02/1969 Smokeless Tobacco: Never Used Alcohol Use Drinks/Week oz/Week Comments No Sex Assigned at Date Recorded Not on file as of this encounter Functional Status Functional Status Response Date of Assessment Does the patient have a hearing impairment: No 10/30/2017 Does the patient have a visual impairment: Yes 10/30/2017 Does the patient have impaired ambulation: No 10/30/2017 Does the patient have an activity of daily living No 10/30/2017 (ADL) impairment: Does the patient have an instrumental activity of No 10/30/2017 daily living (IADL) impairment: Cognitive Status Response Date of Assessment Does the patient have a cognitive impairment: No 10/30/2017 as of this encounter Medications at Time of Discharge [...] topical minutes prior to port cream access MESALAMINE (CANASA RE) Insert or Apply to [...] needed for Pain Earliest Fill Date: 10/15/17 pegfilgrastim (NEULASTA) Inject 0.6 mL under the [...] daily. While taking tablet narcotic pain medication pantoprazole DR Take 1 tablet by mouth 180 tablet 3 09/12/201712/03 (PROTONIX) 40 mg tablet twice daily. as of this encounter Plan of Treatment Not on fileas of this encounter Results * COMPREHENSIVE METABOLIC PANEL (11/14/2017 9:57 AM) Component Value Ref Range Sodium 132 (L) 137 - 147 MMOL/L Potassium 4.2 3.5 - 5.1 MMOL/L [place] 100 98 - 110 MMOL/L Glucose 88 70 - 100 MG/DL Blood Urea Nitrogen 20 7 - 25 MG/DL Creatinine 0.76 0.4 - 1.00 MG/DL Calcium 9.4 8.5 - 10.6 MG/DL Total Protein 6.4 6.0 - 8.0 G/DL Total Bilirubin 0.5 0.3 - 1.2 MG/DL Albumin 3.8 3.5 - 5.0 G/DL Alk Phosphatase 48 25 - 110 U/L AST (SGOT) 13 7 - 40 U/L CO2 26 21 - 30 MMOL/L ALT (SGPT) 7 7 - 56 U/L Anion Gap 6 3 - 12 eGFR Non >60 >60 mL/min Comment: The eGFR is not validated for use in drug dosing adjustments.Continue to use estimated creatinine clearance per dosing reference text.Please contact the Clinical Pharmacist for questions. eGFR >60 >60 mL/min Comment: The eGFR is not validated for use in drug dosing adjustments.Continue to use estimated creatinine clearance per dosing reference text.Please contact the Clinical Pharmacist for questions. Specimen Performing Laboratory Blood [facility] [address] [place] [address] * CBC AND DIFF (11/14/2017 9:57 AM) Component Value Ref Range White Blood Cells 1.7 (L) 4.5 - 11.0 K/UL RBC 3.31 (L) 4.0 - 5.0 M/UL Hemoglobin 11.4 (L) 12.0 - 15.0 GM/DL Hematocrit 34.6 (L) 36 - 45 % MCV 104.4 (H) 80 - 100 FL MCH 34.4 (H) 26 - 34 PG MCHC 33.0 32.0 - 36.0 G/DL RDW 13.7 11 - 15 % Platelet Count 69 (L) 150 - 400 K/UL MPV 7.4 7 - 11 FL Neutrophils 46 41 - 77 % Lymphocytes 46 (H) 24 - 44 % Monocytes 3 (L) 4 - 12 % Eosinophils 4 0 - 5 % Basophils 1 0 - 2 % Absolute Neutrophil Count 0.80 (L) 1.8 - 7.0 K/UL Absolute Lymph Count 0.80 (L) 1.0 - 4.8 K/UL Absolute Monocyte Count 0.00 0 - 0.80 K/UL Absolute Eosinophil Count 0.10 0 - 0.45 K/UL Absolute Basophil Count 0.00 0 - 0.20 K/UL Platelet Estimate MOD DEC Specimen Performing Laboratory Blood [facility] [address] [address] in this encounter Visit Diagnoses Diagnosis Malignant neoplasm of central portion of left breast in female, estrogen receptor negative (HCC)
--- OUTSIDE RECORDS SUMMARY | 2018-01-10 11:38 | XMS REPORT | Encounter Summary ---
Author Author [facility] Address Unknown Phone Unavailable Care Team Providers Care Lay Health Advocate Name Role Phone Doctor, Miscellaneous Unavailable Unavailable Mitch Benavides MD PCP Reason for Visit * Reason Comments Appointment Request Encounter Details Date Type Department Care Team Description 11/11/2017 Telephone [facility] Kaye Watson RN Appointment Request Cancer Center - OP Exam [address] [address] Social History Tobacco Use Types [...] impairment: No 10/30/2017 as of this encounter Miscellaneous Notes * Telephone Encounter - Kaye Watson RN - 11/11/2017 8:05 AM CDT Patient called to inquire if she could move her f/u appt with Cami to Friday instead of Friday. She states Cami told her to make an early appt if she needed to move it. Inquired how she did with her first AC and she states just a little queasy but not bad. Didn't need the IVFs or anti-nausea meds yesterday at the local clinic. WIll plan to receive neulasta on November 21 with next treatment as well instead of the following Friday since receiving her treatment here on November 20. She voiced understanding of this and was in agreement with this plan. in this encounter Plan of Treatment Not on fileas of this encounter Visit Diagnoses Not on filein this encounter
--- OUTSIDE RECORDS SUMMARY | 2018-01-10 11:38 | XMS REPORT | Encounter Summary ---
Author Author [facility] Organization [facility] Address Unknown Phone Unavailable Care Team Providers Care Senior Talent Acquisition Specialist Name Role Phone Doctor, Miscellaneous Unavailable Unavailable Mitch Benavides MD PCP Encounter Details Date Type Department Care Team Description 11/20/2017 [facility] Nitin Pepper MD Encounter Cancer Center - OP Lab [id number] [place] [id number] [place] [address] [phone] Social History Tobacco Use Types Packs/Day Years [...] impairment: No 11/20/2017 as of this encounter Medications at Time [...] this encounter Results * COMPREHENSIVE METABOLIC PANEL (11/20/2017 9:59 AM) Component Value Ref Range Sodium 137 137 - 147 MMOL/L Potassium 3.6 3.5 - 5.1 MMOL/L [place] 105 98 - 110 MMOL/L Glucose 93 70 - 100 MG/DL Blood Urea Nitrogen 12 7 - 25 MG/DL Creatinine 0.84 0.4 - 1.00 MG/DL Calcium 9.2 8.5 - 10.6 MG/DL Total Protein 6.3 6.0 - 8.0 G/DL Total Bilirubin 0.2 (L) 0.3 - 1.2 MG/DL Albumin 3.8 3.5 - 5.0 G/DL Alk Phosphatase 51 25 - 110 U/L AST (SGOT) 13 7 - 40 U/L CO2 27 21 - 30 MMOL/L ALT (SGPT) 10 7 - 56 U/L Anion Gap 5 3 - 12 eGFR Non >60 >60 [...] Performing Laboratory Blood [facility] [address] [place] [address] * CBC AND DIFF (11/20/2017 9:59 AM) Component Value Ref Range White Blood Cells 5.5 4.5 - 11.0 K/UL RBC 2.93 (L) 4.0 - 5.0 M/UL Hemoglobin 10.0 (L) 12.0 - 15.0 GM/DL Hematocrit 30.3 (L) 36 - 45 % MCV 103.5 (H) 80 - 100 FL MCH 34.2 (H) 26 - 34 PG MCHC 33.0 32.0 - 36.0 G/DL RDW 13.6 11 - 15 % Platelet Count 44 (L) 150 - 400 K/UL MPV 8.4 7 - 11 FL Segmented Neutrophils 62 41 - 77 % Bands 9 0 - 10 % Lymphocytes 17 (L) 24 - 44 % Monocytes 11 4 - 12 % Metamyelocyte 1 % MACRO PRESENT Platelet Estimate MKD DEC Absolute Neutrophil Count 3.91 1.8 - 7.0 K/UL Manual Specimen Performing Laboratory Blood [facility] [address] [address] in this encounter Visit Diagnoses Diagnosis Malignant neoplasm of central portion of left breast in female, estrogen receptor negative (HCC)
--- OUTSIDE RECORDS SUMMARY | 2018-01-10 11:38 | XMS REPORT | Encounter Summary ---
Author Author [facility] Organization [facility] Address Unknown Phone Unavailable Care Team Providers Care Saw Handle Assembler Name Role Phone Doctor, Miscellaneous Unavailable Unavailable Mitch Benavides MD PCP Reason for Visit * Reason Comments Heme/Onc Care * Treatment (Routine) Status Reason Specialty Diagnoses / Referred By Referred To Procedures Contact Contact Authorized Hematology and Diagnoses Nitin Pepper Marc S, Oncology Malignant [place] [address] central portion [place], [place] of left breast [facility] [id number] in female, Phone: Phone: estrogen [phone] receptor Fax: negative (HCC) [phone] P rocedures DOXORUBICIN + CYCLOPHOSPHAMIDE Encounter Details Date Type Department Care Team Description 11/20/2017 [facility] Nitin Pepper MD Encounter [place] [address] [place] [address] [phone] [place] [address] Social History Tobacco Use Types [...] encounter Discharge Instructions * Patient Instructions - Ramona Roach RN - 11/20/2017 10:34 AM CDT Formatting of this note may be different from the original. Call Immediately to report the following: Uncontrolled nausea and/or vomiting, uncontrolled pain, or unusual bleeding. Temperature of 100.4 F or greater and/or any sign/symptom of infection (redness , warmth, tenderness) Painful mouth or difficulty swallowing Red, cracked, or painful hands and/or feet Diarrhea Swelling of arms or legs Rash Important Phone Numbers: OP Cancer Center Main Number (answered 24 hours a day) [phone] Cancer Center Scheduling (appointments) [phone] [place] 7430 [facility] (for nutritional supplements) [phone] Thrombocytopenia Thrombocytopenia occurs when there are fewer platelets in the blood than normal. Platelets (also called thrombocytes) are blood cells that are needed for clotting. They help stop or control bleeding when you have a cut or wound. Thrombocytopenia can range from mild to severe. This depends on the number of platelets in your blood. If you have severe thrombocytopenia, you're at higher risk for bruising and bleeding. What causes thrombocytopenia? Platelets and other blood cells are made in the bone marrow. This is the soft, spongy part inside bones. Thrombocytopenia can result when: The bone marrow doesn't make enough platelets. Platelets are destroyed by the body at a rate faster than they can be made in the bone marrow. Platelets become trapped in an enlarged spleen. These problems can happen because of many reasons, including: Certain conditions that affect how platelets are made in the bone marrow, such as aplastic anemia, leukemia, and lymphoma Certain medicines, such as some types of antibiotics, anti-seizure medicines , and chemotherapy drugs Certain viral infections, such as varicella (chicken pox), HIV, and Eduin- Askew virus Certain immune problems, such as lupus and immune thrombocytopenic purpura ( ITP) Certain conditions that can cause an enlarged spleen, such as cirrhosis and cancer Alcohol abuse What are the symptoms of thrombocytopenia? Possible symptoms include: Severe bruising or bleeding Small red or purple spots (petechiae) on the skin Bleeding gums Nosebleeds Bleeding from a wound that stops and starts again Bloody urine or stool Heavy menstrual flow (women only) How is thrombocytopenia diagnosed? Your healthcare provider will ask about your symptoms and health history. You will also be examined. Tests will be done to confirm the problem as well. These may include: A complete blood cell count (CBC). This test measures the amounts of the different types of cells in the blood. This includes the number of platelets in the blood (platelet count). A blood smear. This test checks for the different types of blood cells in the blood and how they appear. A sample of your blood is spread on a glass slide and viewed under a microscope. A stain is used so the blood cells can be seen. A bone marrow aspiration and biopsy. This test checks for problems with how the bone marrow makes blood cells. A needle is used to remove a sample of the bone marrow in your hipbone. The sample is then sent to a lab to be tested for problems. How is thrombocytopenia treated? Often, no treatment is needed for thrombocytopenia. Your healthcare provider will monitor your symptoms to see if they improve. Blood tests will also be done to check whether your platelet count returns to normal on its own. If treatment is needed, this may involve: Treatment of the underlying cause. For instance, if a medicine is the cause, it may be stopped or changed. Platelet transfusions. These help raise the number of healthy platelets in the body. Blood transfusions. These help treat blood loss that may occur because of low platelets. Medicines. These may be given to help prevent platelets from being destroyed. These may also be given to help the bone marrow make more platelets. Surgery to remove the spleen. The spleen helps filter the blood. It also stores some blood cells, including platelets. If the spleen is enlarged, it can store too many platelets. This causes there to be fewer platelets in the blood than normal. Though done less often, removing the spleen may help treat thrombocytopenia in certain cases. What can I expect for recovery and follow-up? Thrombocytopenia may be a short-term (acute) problem that has no lasting effects. Or it may be an ongoing (chronic) problem. If your condition is chronic , you may need specific treatments to manage it. You may also need to take certain steps daily to reduce your risk of bleeding. For instance, you may be told to limit certain activities that increase your risk of injury. You may also be told to avoid drinking alcohol and taking certain medicines, such as aspirin and ibuprofen. These can worsen your symptoms. In addition, you will need to know and watch for signs and symptoms of bleeding. When to call your healthcare provider Call 911 if you have: Severe bleeding that won't stop (call 911) Signs of bleeding in the brain, such as severe headache, dizziness, trouble with balance and coordination, abnormal walk, memory loss, and confusion (call 911) Call your healthcare provider right away if you have any of these: Bruising that spreads or worsens Increase of small red or purple spots (petechiae) on the skin Bloody urine Dark brown or black, tarry, or bloody stools Bloody vomit Date Last Reviewed: 07/18/201619998652-5050 The [employer] [address] [place] [address]. All rights reserved. This information is not intended as a substitute for professional medical care. Always follow your healthcare professional's instructions. Call Immediately to report the following: Uncontrolled nausea and/or vomiting, uncontrolled pain, or unusual bleeding. Temperature of 100.4 F or greater and/or any sign/symptom of infection (redness , warmth, tenderness) Painful mouth or difficulty swallowing Red, cracked, or painful hands and/or feet Diarrhea Swelling of arms or legs Rash Important Phone Numbers: OP Cancer Center Main Number (answered 24 hours a day) [phone] Cancer Center Scheduling (appointments) [phone] OR [phone] [facility] (for nutritional supplements) [phone] in this encounter Medications at Time of [...] tablet twice daily. as of this encounter Progress Notes * Ramona Roach RN - 11/20/2017 10:43 AM CDT Cycle 2 AC Labs drawn from port. Seen by Dr. Evgeny becerra deferred for low plt. Discharged to in good condition, ambulatory. in this encounter Plan of Treatment Not on fileas of this encounter Visit Diagnoses Diagnosis Malignant neoplasm of female breast, unspecified estrogen receptor status, unspecified laterality, unspecified site of breast (HCC) Ovarian cancer on left (HCC) Malignant neoplasm of ovary Administered Medications Medication Order MAR Action Action Date Dose Rate Site heparin lock flush PF syringe 500 Units Given 11/20/2017 500 Units 500 Units, Intravenous, ONCE, 1 dose, 10:41 CDT Dominga 11/20/17 at 1045, NOTE: This is a HIGH ALERT Medication. in this encounter
--- OUTSIDE RECORDS SUMMARY | 2018-01-10 11:38 | XMS REPORT | Encounter Summary ---
Author Author [facility] Organization [facility] Address Unknown Phone Unavailable Care Team Providers Care Bioinformatics Engineer Name Role Phone Doctor, Miscellaneous Unavailable Unavailable Mitch Benavides MD PCP Reason for Visit * Reason Comments Heme/Onc Care Encounter Details Date Type Department Care Team Description 11/14/2017 Office Visit [facility] Cami Aguilar APRN Malignant neoplasm of Cancer Center - OP Exam [address] central portion of left [address] [place] [address] breast in female, [place], [place] [phone] estrogen receptor [phone] negative (HCC) (Primary [phone] Dx); Anxiety; Ovarian cancer on left (HCC) Social History Tobacco Use Types Packs/Day Years Used Date Former Smoker Cigarettes 0.25 5 06/13/1966 - 09/02/1969 Smokeless Tobacco: Never Used Alcohol Use Drinks/Week oz/Week Comments No Sex Assigned at Date Recorded Not on file as of this encounter Last Filed Vital Signs Vital Sign Reading Time Taken Blood Pressure 117/66 11/14/2017 9:01 AM CDT Pulse 75 11/14/2017 9:01 AM CDT Temperature 36.7 C (98 F) 11/14/2017 9:01 AM CDT Respiratory Rate 16 11/14/2017 9:01 AM CDT Oxygen Saturation 100% 11/14/2017 9:01 AM CDT Inhaled Oxygen - - Concentration Weight 54.1 kg (119 lb 3.2 oz) 11/14/2017 9:03 AM CDT Height 167.6 cm (5' 5.98") 11/14/2017 9:03 AM CDT Body Mass Index 19.25 11/14/2017 9:03 AM CDT in this encounter Functional Status [...] impairment: No 10/30/2017 as of this encounter Progress Notes * Cami Aguilar APRN - 11/14/2017 9:00 AM CDT Formatting of this note may be different from the original. Name: Callie De La Garza : 1940 AGE: 77 y.o. DATE OF SERVICE: 11/14/2017 Subjective: Reason for Visit: Heme/Onc Care Cancer Staging Malignant neoplasm of central portion of left breast in female, estrogen receptor negative (HCC) Staging form: Breast, AJCC 7th Edition - Clinical stage from 06/12/2017: Stage IIIC (T2, N3, M0) - Signed by Lidia Valentine APRN-VIDEOTAPE RECORDING ENGINEER on 06/16/2017 - Pathologic stage from 10/14/2017: Stage IIIC (yT4b, N3, cM0) - Signed by Nitin Pepper MD on 10/23/2017 Ovarian cancer on left (HCC) Staging form: Ovary, AJCC 7th Edition - Pathologic stage from 07/05/2015: Stage IC (T1c, N0, cM0) - Signed by Nitin Pepper MD on 06/11/2017 History of Present Illness Jaclyn is a patient of Dr. Ramos with breast cancer. See below for HPI. She is cycle 1 day 8 of dose dense Adriamycin and Cytoxan with Neulasta support. She did well overall with her first cycle. She was anxious about nausea. She took her steroids as instructed and took zofran as needed. She complains of mild fatigue. She continues to have sinus congestion. She has been taking Ativan as needed for anxiety and to help her sleep. Denies fevers or infectious symptoms. No chest pain or breathing changes. Denies GI or complaints. No swelling or skin rashes. She continues to be very worried about her cancer coming back. HPI 1. BRANDEE/BSO along with omentectomy and surgical [...] mass discovered May 2017. 4. Ultrasound at [facility] 06/05/2017 revealed 3 cm left breast mass with multiple abnormal left axillary nodes. 5. Core needle biopsy 06/05/2017 at [facility] showed grade 3 invasive ductal carcinoma in the breast and left axillary nodes, ER 1%, OH 0%, Her2 2+ with FISH negative (ratio [...] with 20% residual tumor cellularity, ER 0%, OH 0%, HER-2 2+ with negative FISH, Ki-67 68%. 14 of 16 dissected lymph nodes were-positive for metastatic disease, with treatment effect noted in the florentino metastases as well, ER 0%, OH 0%, HER-2 2+ with negative FISH, Ki-67 87%. Several margins were removed from the skin due to-positive margin on the original specimen and eventually margins were clear of obvious disease, but lymphovascular invasion was noted. 9. Restaging PET/CT negative for distant metastatic disease. 10. DdAC x4 planned She is with her . Review of Systems Constitutional: Positive for fatigue. HENT: Positive for congestion. Eyes: Positive for visual disturbance. Psychiatric/Behavioral: Positive for decreased concentration, dysphoric mood and sleep disturbance. The patient is nervous/anxious. Objective: 0.9 % SODIUM CHLORIDE (SODIUM CHLORIDE [...] mouth every 6 hours as needed for Nausea. MESALAMINE (CANASA [...] daily. While taking narcotic pain medication Vitals: 11/14/17 0901 11/14/17 0903 BP: 117/66 Pulse: 75 Resp: 16 Temp: 36.7 C (98 F) TempSrc: Oral SpO2: 100% Weight: 54.1 kg (119 lb 3.2 oz) 54.1 kg (119 lb 3.2 oz) Height: 167.6 cm (65.98") 167.6 cm (65.98") Body mass index is 19.25 kg/m. Pain Score: Zero Pain Addressed: N/A Eastern Cooperative Oncology Group performance status is 1, Restricted in physically strenuous activity but ambulatory and able to carry out work of a light or sedentary nature, e.g., light house work, office work. Physical Exam Constitutional: She appears well-developed. HENT: Head: Normocephalic. Mouth/Throat: Oropharynx is clear and moist. Cardiovascular: Normal rate and regular rhythm. Pulmonary/Chest: Effort normal and breath sounds normal. Abdominal: Soft. Bowel sounds are normal. Neurological: She is alert. Skin: Skin is warm. Psychiatric: She has a normal mood and affect. anxious about cancer Vitals reviewed. Left mastectomy site C/D/I. Left axilla seroma pretty much resolved. CBC w/Diff Lab Results Component Value Date/Time WBC 1.7 (L) 11/14/2017 09:57 AM RBC 3.31 (L) 11/14/2017 09:57 AM HGB 11.4 (L) 11/14/2017 09:57 AM HCT 34.6 (L) 11/14/2017 09:57 AM MCV 104.4 (H) 11/14/2017 09:57 AM MCH 34.4 (H) 11/14/2017 09:57 AM MCHC 33.0 11/14/2017 09:57 AM RDW 13.7 11/14/2017 09:57 AM PLTCT 69 (L) 11/14/2017 09:57 AM MPV 7.4 11/14/2017 09:57 AM Lab Results Component Value Date/Time NEUT 46 11/14/2017 09:57 AM ANC 0.80 (L) 11/14/2017 09:57 AM LYMA 46 (H) 11/14/2017 09:57 AM ALC 0.80 (L) 11/14/2017 09:57 AM ARSALAN 3 (L) 11/14/2017 09:57 AM AMC 0.00 11/14/2017 09:57 AM EOSA 4 11/14/2017 09:57 AM AEC 0.10 11/14/2017 09:57 AM BASA 1 11/14/2017 09:57 AM ABC 0.00 11/14/2017 09:57 AM Assessment and Plan: 1. 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 She is cycle 1 day 8 of ddAC with neulasta support closer to home on day 4. She did well and was surprised that she did not have much nausea. She will return next week for labs and treatment. She will see Dr Pepper in 1 week also. 2. Neutropenia. She received Neulasta. She will call with fevers or infectious symptoms. A copy of labs provided. 3. Thrombocytopenia. We will check labs in 1 week. 4. 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 Grade 1 peripheral neuropathy, we will continue to monitor. It is not affecting function. 6. Negative Myriad my Risk panel testing 7. Ulcerative colitis, currently not on immunosuppressive therapy. We will monitor on chemotherapy. 8. GERD. She is on Protonix. We will monitor closely while she is on therapy as this caused trouble previously. 9. Anxiety, on Lexapro. She recently increased her Lexapro dose. She has Ativan at home to take as needed. A refill provided today. We discussed seeing Dr Senior and will try to coordinate appointments. 10. Left axilla seroma, pretty much resolved. in this encounter Plan of Treatment Not on fileas of this encounter Visit Diagnoses Diagnosis Malignant neoplasm of central portion of left breast in female, estrogen receptor negative (HCC) - Primary Anxiety Anxiety state, unspecified Ovarian cancer on left (HCC) Malignant neoplasm of ovary
--- OUTSIDE RECORDS SUMMARY | 2018-01-10 11:38 | XMS REPORT | Encounter Summary ---
Author Author [facility] Organization [facility] Address Unknown Phone Unavailable Care Team Providers Care Hot Plate Plywood Press Operator Name Role Phone Doctor, Miscellaneous Unavailable Unavailable Mitch Benavides MD PCP Encounter Details Date Type Department Care Team Description 11/14/2017 [facility] Cami Aguilar [place] [id number] [place] [address] [place] [address] Social History Tobacco Use Types [...]
--- OUTSIDE RECORDS SUMMARY | 2018-01-10 11:39 | XMS REPORT | Encounter Summary ---
Author Author [facility] Organization [facility] Address Unknown Phone Unavailable Care Team Providers Care Upsetter Name Role Phone Doctor, Miscellaneous Unavailable Unavailable Mitch Benavides MD PCP Reason for Visit * Treatment (Routine) Status Reason Specialty Diagnoses / Referred By Referred To Procedures Contact Contact Authorized Hematology and Diagnoses Nitin Pepper Marc S, Oncology Malignant S, [place] [address] central portion [place], [place], [place] [address] in female, Phone: Phone: estrogen [phone] receptor Fax: negative (HCC) [phone] P rocedures DOXORUBICIN + CYCLOPHOSPHAMIDE Encounter Details Date Type Department Care Team Description 11/07/2017 [facility] Cami Aguilar [place] [address] [place] [address] [phone] [place] [address] Social History Tobacco Use Types [...] impairment: No 10/30/2017 as of this encounter Discharge Instructions * Patient Instructions - Risa Cho RN - 11/07/2017 10:19 AM CDT Call Immediately to report the following: Uncontrolled nausea and/or vomiting, uncontrolled pain, or unusual bleeding. Temperature of 100.4 F or greater and/or any sign/symptom of infection (redness , warmth, tenderness) Painful mouth or difficulty swallowing Red, cracked, or painful hands and/or feet Diarrhea Swelling of arms or legs Rash Important Phone Numbers: Cancer Center Main Number (answered 24 hours a day) [phone] Cancer Center Scheduling (appointments) [phone] OR [phone] [facility] Action (for nutritional supplements) [phone] in this encounter Medications at Time of [...] daily. While taking tablet narcotic pain medication LORazepam (ATIVAN) 0.5 mg Take 1 tablet by mouth 45 tablet 2 201611/14/2017 tablet every 6 hours as needed for Nausea. pantoprazole DR Take 1 tablet by mouth 180 tablet 3 09/12/201712/03 (PROTONIX) 40 mg tablet twice daily. as of this encounter Progress Notes * Risa Cho RN - 11/07/2017 2:40 PM CDT Labs drawn from port without difficulties. She states that she is doing well, just anxious about new treatment. 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 CHEMO NOTE Verified chemo consent signed and in chart. Verified initiate chemo order in O2 Blood return positive via: Port (Single) BSA and dose double checked (agree with orders as written) with: yes Lidia Douglas RN Labs/applicable tests checked: CBC and Comprehensive Metabolic Panel (CMP) Chemo regime: Adriamycin + Cytoxan C1 D1 Rate verified and armband double checkwith second RN: yes Patient education offered and stated understanding. Denies questions at this time. in this encounter Miscellaneous Notes * Addendum Note - Daphney Nixon - 11/07/2017 11:59 PM CDT Encounter addended by: Daphney Nixon on: 11/13/2017 8:38 AM
Actions taken: Charge Capture section accepted in this encounter Plan of Treatment Not on fileas of this encounter Visit Diagnoses Diagnosis Malignant neoplasm of central portion of left breast in female, estrogen receptor negative (HCC) Administered Medications Medication Order MAR Action Action Date Dose Rate Site cyclophosphamide (CYTOXAN) 960 mg in Given - New 11/07/2017 960 mg 596 mL/hr sodium chloride 0.9% (NS) 298 mL IVPB Bag 13:00 CDT 960 mg (rounded from 972 ly=761 mg/m2 1.62 m2 Treatment plan recorded BSA), Intravenous, 298 mL, Administer over 0.5 Hours, ONCE, 1 dose, Fri11/07/17 at 1145, NURSING: To be administered by Chemotherapy Competency-validated nurse. NOTE: This is a HIGH ALERT Medication. SPECIAL TUBING REQUIRED dexamethasone (DECADRON) tablet 12 mg Given 11/07/2017 12 mg 12 mg, Oral, ONCE, 1 dose, Fri11/07/17 11:21 CDT at 1115 DOXOrubicin (ADRIAMYCIN) injection 97.2 Given 11/07/2017 97.2 mg mg 12:52 CDT 97.2 mg (60 mg/m2 1.62 m2 Treatment plan recorded BSA), Intravenous, ONCE, 1 dose, Fri11/07/17 at 1145, Give IV Push over 3-5 minutes. PROTECT FROM LIGHT NURSING: To be administered by Chemotherapy Competency-validated nurse. NOTE: This is a HIGH ALERT Medication. SPECIAL TUBING REQUIRED fosaprepitant (EMEND) 150 mg in sodium Given - New 11/07/2017 150 mg 450 mL/hr chloride 0.9% (NS) 150 mL IVPB Bag 11:54 CDT 150 mg, Intravenous, 150 mL, Administer over 20 Minutes, ONCE, 1 dose, 11/07/17 at 1115 heparin lock flush PF syringe 500 Units Given 11/07/2017 500 Units 500 Units, Intravenous, ONCE, 1 dose, 13:35 CDT Fri11/07/17 at 1030, NOTE: This is a HIGH ALERT Medication. palonosetron(+) (ALOXI) injection 0.25 Given 11/07/2017 0.25 mg mg 11:21 CDT 0.25 mg, Intravenous, ONCE, 1 dose, Fri11/07/17 at 1115 in this encounter
--- OUTSIDE RECORDS SUMMARY | 2018-01-10 11:39 | XMS REPORT | Encounter Summary ---
Author Author [facility] Organization [facility] Address Unknown Phone Unavailable Care Team Providers Care Kindergarten Assistant Name Role Phone Doctor, Miscellaneous Unavailable Unavailable Mitch Benavides MD PCP Encounter Details Date Type Department Care Team Description 11/03/2017 Documentation [facility] at Edie Lugo MD [place] [address] [facility] [id number] [place] [address] [facility] [address] [place] [address] [phone] Social History Tobacco Use Types Packs/Day Years [...] as of this encounter Progress Notes * Edie Lugo MD - 11/03/2017 12:47 PM CDT I have been in touch with the pathologist reviewing the patient's surgical pathology to review and confirm the margin status. Overall, the patient has negative final margins as a result of her surgery so no additional operative intervention is required at this time. I confirmed this information with the patient and she is good to proceed with adjuvant treatment as recommended from a surgical standpoint. Specifically when considering the pathology report: Pathology part C (positive skin punch) - this area was removed as part of specimen G. This margin is thus clear. Pathology part E (specifically skin ellipse) - 12-3 oclock area additional skin was removed beyond this skin ellipse (called specimen H) and the medial tip of H represents the same part of skin which correlates to that which was positive in part E (excised). These margins are thus clear. Pathology part E (specifically skin ellipse) - 6-9 o'clock area additional skin was removed beyond this skin ellipse (called specimen G). This margin is thus clear. Pathology part G where there is LVI at the inferior margin - this inferior margin corresponds to a 2nd skin ellipse around the NAC which was excised en bloc as part of the original (part E) mastectomy specimen. This margin is thus clear. In the comments where it is noted that "LVI is present in all four quadrants of the peripheral margins of the skin ellipse" I have confirmed that the pathologists performed an en-face shave of the skin involved for extent. The four quadrants of the skin were involved, but only those 12-3 and 6-9 as noted above had positive margin (tumor on ink) and these areas have been already resected as noted above. Edie Lugo MD 11/03/2017 12:56 PM in this encounter Plan of Treatment Not on fileas of this encounter Visit Diagnoses Not on filein this encounter
--- OUTSIDE RECORDS SUMMARY | 2018-01-10 11:39 | XMS REPORT | Encounter Summary ---
Author Author [facility] Organization [facility] Address Unknown Phone Unavailable Care Team Providers Care Integration Technician Name Role Phone Doctor, Miscellaneous Unavailable Unavailable Mitch Benavides MD PCP Reason for Referral * Test Status Reason Specialty Diagnoses / Referred By Referred To Procedures Contact Contact Canceled Cardiology Diagnoses Nitin PepperOvpk Echo/Pv Malignant S, [address] [address] central portion [place], [place], [place] [address] in female, Phone: Phone: estrogen [phone] receptor Fax: negative ([facility]) [phone] P rocedures 2-D ECHOCARDIOGRAM ONLY TX ECHO TRANSTHORAC R-T 2D W/WO M-MODE REC COMP Encounter Details Date Type Department Care Team Description 11/05/2017 Orders Only [facility] Kaye Watson RN Malignant neoplasm of Cancer Center - OP Exam central portion of left [address] breast in female, [place], [place] estrogen receptor [phone] negative ([facility]) [phone] Social History Tobacco Use Types Packs/Day Years [...] impairment: No 10/30/2017 as of this encounter Plan of Treatment Not on fileas of this encounter Results * 2-D ECHOCARDIOGRAM ONLY (10/29/2017) Specimen Performing Laboratory [facility] [address] [address] in this encounter Visit Diagnoses Diagnosis Malignant neoplasm of central portion of left breast in female, estrogen receptor negative (HCC)
--- OUTSIDE RECORDS SUMMARY | 2018-01-10 11:39 | XMS REPORT | Encounter Summary ---
Author Author [facility] Organization [facility] Address Unknown Phone Unavailable Care Team Providers Care Business Project Analyst Name Role Phone Doctor, Miscellaneous Unavailable Unavailable Mitch Benavides MD PCP Reason for Visit * Reason Comments Heme/Onc Care Encounter Details Date Type Department Care Team Description 11/03/2017 Office Visit [facility] at Edie Lugo MD Malignant neoplasm of [place] [address] central portion of left [address] [place] [address] breast in female, [address] [place] [address] negative (HCC) (Primary [phone] J Dx) Lidia vallejo, IT PROFESSIONAL [address] [place] [address] [phone] Social History Tobacco Use Types Packs/Day Years Used Date Former Smoker Cigarettes 0.25 5 06/13/1966 - 09/02/1969 Smokeless Tobacco: Never Used Alcohol Use Drinks/Week oz/Week Comments No Sex Assigned at Date Recorded Not on file as of this encounter Last Filed Vital Signs Vital Sign Reading Time Taken Blood Pressure 125/79 11/03/2017 11:42 AM CDT Pulse 74 11/03/2017 11:42 AM CDT Temperature 36.9 C (98.4 F) 11/03/2017 11:42 AM CDT Respiratory Rate 16 11/03/2017 11:42 AM CDT Oxygen Saturation 99% 11/03/2017 11:42 AM CDT Inhaled Oxygen - - Concentration Weight 54.4 kg (120 lb) 11/03/2017 11:42 AM CDT Height 167.6 cm (5' 6") 11/03/2017 11:42 AM CDT Body Mass Index 19.37 11/03/2017 11:42 AM CDT in this encounter Functional Status [...] as of this encounter Progress Notes * Lidia Agarwal APRN - 11/03/2017 11:00 AM CDT Ms. De La Garza returns to the clinic today for evaluation of swelling in the left axilla. 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 She called the clinic this morning with concerns for swelling and discomfort in the axilla and she was scheduled to come in today for evaluation. On exam, there is a post-op seroma noted in the left axilla. No signs of infection and the incision remains intact. The seroma was aspirated in clinic today and 55 mLs of serous fluid was drained. Ms. De La Garza was encouraged to call the clinic if the swelling in the axilla recurs and causing discomfort. RTC in April, as scheduled Continue follow-up with med/onc Lidia Agarwal APRN in this encounter Plan of Treatment Not on fileas of this encounter Visit Diagnoses Diagnosis Malignant neoplasm of central portion of left breast in female, estrogen receptor negative (HCC) - Primary
--- OUTSIDE RECORDS SUMMARY | 2018-01-10 11:39 | XMS REPORT | Encounter Summary ---
Author Author [facility] Organization [facility] Address Unknown Phone Unavailable Care Team Providers Care Drywall Application Supervisor Name Role Phone Doctor, Miscellaneous Unavailable Unavailable Mitch Benavides MD PCP Encounter Details Date Type Department Care Team Description 10/30/[address] [facility] Nitin Pepper MD Malignant neoplasm of Cancer Center - OP Exam [address] central portion of left [address] [place] [address] breast in female, [place], [place] [phone] estrogen receptor [phone] negative (HCC) (Primary [phone] Dx) Social History Tobacco Use Types Packs/Day [...]
--- OUTSIDE RECORDS SUMMARY | 2018-01-10 11:39 | XMS REPORT | Encounter Summary ---
Author Author [facility] Organization [facility] Address Unknown Phone Unavailable Care Team Providers Care Pleater Name Role Phone Doctor, Miscellaneous Unavailable Unavailable Mitch Benavides MD PCP Reason for Visit * Reason Comments Heme/Onc Care Encounter Details Date Type Department Care Team Description 11/07/2017 Office Visit [facility] Cami Aguilar APRN Malignant neoplasm of Cancer Center - OP Exam [address] central portion of left [address] [place] [address] breast in female, [place], [place] [phone] estrogen receptor [phone] negative (HCC) (Primary [phone] Dx); Anxiety Social History Tobacco Use Types Packs/Day Years Used Date Former Smoker Cigarettes 0.25 5 06/13/1966 - 09/02/1969 Smokeless Tobacco: Never Used Alcohol Use Drinks/Week oz/Week Comments No Sex Assigned at Date Recorded Not on file as of this encounter Last Filed Vital Signs Vital Sign Reading Time Taken Blood Pressure 112/74 11/07/2017 9:48 AM CDT Pulse 82 11/07/2017 9:48 AM CDT Temperature 36.7 C (98.1 F) 11/07/2017 9:48 AM CDT Respiratory Rate 18 11/07/2017 9:48 AM CDT Oxygen Saturation 100% 11/07/2017 9:48 AM CDT Inhaled Oxygen - - Concentration Weight 54.4 kg (120 lb) 11/07/2017 9:48 AM CDT Height 167.6 cm (5' 5.98") 11/07/2017 9:48 AM CDT Body Mass Index 19.38 11/07/2017 9:48 AM CDT in this encounter Functional Status [...] Progress Notes * Cami Aguilar APRN - 11/07/2017 10:00 AM CDT Formatting of this note may be different from the original. Name: Callie De La Garza : 1940 AGE: 77 y.o. DATE OF SERVICE: 11/07/2017 Subjective: Reason for Visit: Heme/Onc Care Malignant neoplasm of central portion of left breast in female, estrogen receptor negative (HCC) Staging form: Breast, AJCC 7th Edition - Clinical stage from 06/12/2017: Stage IIIC (T2, N3, M0) - Signed by Lidia Valentine APRN-SWIMMING POOL INSTALLER on 06/16/2017 - Pathologic stage from 10/14/2017: [...] cancer. See below for HPI. She is here for education prior to dose dense Adriamycin and Cytoxan with Neulasta support. She will start cycle 1 day 1 today. She will have Neulasta closer to home. Jaclyn is doing well overall. She is very nervous to start treatment. She is anxious about her diagnosis and findings from surgery. She has increased her Lexapro recently. She recently had a left axilla seroma drained. She is eating and drinking well. No chest pain or breathing trouble. She denies GI or complaints. She currently has 3 formed stools a day. No swelling. 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 Her nails have ridges. She has difficulty sleeping. She takes several naps during the day. She has used Ativan and Xanax in the past with some relief. She is unable to take Benadryl because it makes her anxious. She has tried melatonin in the past but is unsure of dose. HPI 1. BRANDEE/BSO along with omentectomy and [...] mass discovered May 2017. 4. Ultrasound at [facility] 06/05/2017 revealed 3 cm left breast mass with multiple abnormal left axillary nodes. 5. Core needle biopsy 06/05/[address] [facility] showed grade 3 invasive ductal carcinoma in the breast and left axillary nodes, ER 1%, MD 0%, Her2 2+ with FISH negative (ratio [...] with 20% residual tumor cellularity, ER 0%, MD 0%, HER-2 2+ with negative FISH, Ki-67 68%. 14 of 16 dissected lymph nodes were-positive for metastatic disease, with treatment effect noted in the florentino metastases as well, ER 0%, MD 0%, HER-2 2+ with negative FISH, Ki-67 87%. Several margins were removed from the skin due to-positive margin on the original specimen and eventually margins were clear of obvious disease, but lymphovascular invasion was noted. 9. Restaging PET/CT negative for distant metastatic disease. 10. DdAC x4 planned She is with her and son. Review of Systems Objective: [START ON 11/10/2017] 0.9 % SODIUM CHLORIDE (SODIUM CHLORIDE 0.9% [...] rectal area as directed three times weekly. [START ON 11/10/2017] Ondansetron HCl (PF) 4 mg/2 mL syrg Inject 8 mg to area (s) as directed three times weekly. As needed for excessive nausea or vomiting oxyCODONE/acetaminophen (ENDOCET) 5/325 mg tablet Take 1-2 tablets by mouth every 4 hours as needed for Pain Earliest Fill Date: 10/15/[address] (PROTONIX) 40 mg tablet Take 1 tablet by mouth twice daily. [START ON 11/10/2017] pegfilgrastim (NEULASTA) 6 mg/0.6 mL syringe Inject 0.6 mL under the skin as directed. Every 2 weeks x 4 doses with first dose on prochlorperazine maleate (COMPAZINE) 10 mg tablet Take 1 tablet by mouth every 6 hours as needed for Nausea or Vomiting. senna/docusate (SENOKOT-S) 8.6/50 mg tablet Take 1 tablet by mouth twice daily. While taking narcotic pain medication Vitals: 11/07/17 0948 BP: 112/74 Pulse: 82 Resp: 18 Temp: 36.7 C (98.1 F) TempSrc: Oral SpO2: 100% Weight: 54.4 kg (120 lb) Height: 167.6 cm (65.98") Body mass index is 19.38 kg/m. Pain Score: Zero Pain Addressed: N/A Eastern Cooperative Oncology Group performance status is 1, Restricted in physically strenuous activity but ambulatory and able to carry out work of a light or sedentary nature, e.g., light house work, office work. Physical Exam Skin: Left axilla reveals small seroma. Incisions are clean with no evidence of infection. Vitals reviewed. CBC w/Diff Lab Results Component Value Date/Time WBC 5.8 11/07/2017 09:30 AM RBC 3.41 (L) 11/07/2017 09:30 AM HGB 11.8 (L) 11/07/2017 09:30 AM HCT 35.5 (L) 11/07/2017 09:30 AM MCV 104.2 (H) 11/07/2017 09:30 AM MCH 34.5 (H) 11/07/2017 09:30 AM MCHC 33.1 11/07/2017 09:30 AM RDW 13.9 11/07/2017 09:30 AM PLTCT 173 11/07/2017 09:30 AM MPV 6.8 (L) 11/07/2017 09:30 AM Lab Results Component Value Date/Time NEUT 54 11/07/2017 09:30 AM ANC 3.10 11/07/2017 09:30 AM LYMA 31 11/07/2017 09:30 AM ALC 1.80 11/07/2017 09:30 AM ARSALAN 12 11/07/2017 09:30 AM AMC 0.70 11/07/2017 09:30 AM EOSA 2 11/07/2017 09:30 AM AEC 0.10 11/07/2017 09:30 AM BASA 1 11/07/2017 09:30 AM ABC 0.10 11/07/2017 09:30 AM Assessment and Plan: 1. 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 She will proceed with dose dense Adriamycin and Cytoxan with Neulasta support for 4 cycles. She received Neulasta closer to home. She is due to see me next week and Dr. Ramos the following week prior to her next treatment. 2. Education complete and consent signed. She was given written and verbal instructions on how to take Decadron for 3 days after each treatment. She is very worried about nausea we reviewed this in detail. She has Compazine, Zofran and Ativan at home. She will take Claritin for 5 days, starting the day of injection, to decrease bone pain related to Neulasta. 3. Skin extension of disease 4. 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 10. Left axilla seroma, recently drained. We will continue to monitor. A thorough pre-assessment and teaching session explaining the mechanism of action, possible side effects, precautions and instructions regarding Adriamycin and Cytoxan therapy was conducted. Specific side effects and their management were discussed in detail and include, but are not limited to: fatigue , low blood counts, nausea, vomiting, loss of appetite, diarrhea, constipation, neuropathy, rash. Both verbal and written instructions were provided. All questions were answered to the best of my ability. The patient expressed understanding of what was explained to them, participated and agreed with the present plan. Written informed consent was obtained. The patient has received contact information for the clinic and was instructed on how to contact us if questions or concerns arise. They also verbalized understanding of when to report signs and symptoms to us. Total time spent with patient was m inutes with 100% of time spent in education and counseling. I have reviewed the distress thermometer and needs assessment, including physical, psychological, social, spiritual and behavioral needs. The patient completed the assessment during this visit to identify psychosocial needs that may interfere with the patient's plan of care. 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
--- OUTSIDE RECORDS SUMMARY | 2018-01-10 11:39 | XMS REPORT | Encounter Summary ---
Author Author [facility] Organization [facility] Address Unknown Phone Unavailable Care Team Providers Care Implementation Specialist Name Role Phone Doctor, Miscellaneous Unavailable Unavailable Mitch Benavides MD PCP Encounter Details Date Type Department Care Team Description 10/31/2017 Orders Only [facility] Mitzy Cristina, [facility] - OP Exam [address] [address] Social History Tobacco Use Types [...]
--- OUTSIDE RECORDS SUMMARY | 2018-01-10 11:39 | XMS REPORT | Encounter Summary ---
Author Author [facility] Organization [facility] Address Unknown Phone Unavailable Care Team Providers Care Sr Solutions Consultant Name Role Phone Doctor, Miscellaneous Unavailable Unavailable Mitch Benavides MD PCP Encounter Details Date Type Department Care Team Description 11/07/2017 [facility] Cami Aguilar APRN Encounter Cancer Center - OP Lab [id number] [place] [id number] [place] [address] [phone] Social History Tobacco Use Types Packs/Day Years [...] this encounter Results * COMPREHENSIVE METABOLIC PANEL (11/07/2017 9:30 AM) Component Value Ref Range Sodium 137 137 - 147 MMOL/L Potassium 4.1 3.5 - 5.1 MMOL/L Chloride 104 98 - 110 MMOL/L Glucose 79 70 - 100 MG/DL Blood Urea Nitrogen 14 7 - 25 MG/DL Creatinine 0.82 0.4 - 1.00 MG/DL Calcium 9.4 8.5 - 10.6 MG/DL Total Protein 6.4 6.0 - 8.0 G/DL Total Bilirubin 0.4 0.3 - 1.2 MG/DL Albumin 3.9 3.5 - 5.0 G/DL Alk Phosphatase 43 25 - 110 U/L AST (SGOT) 17 7 - 40 U/L CO2 27 21 - 30 MMOL/L ALT (SGPT) 10 7 - 56 U/L Anion Gap 6 [...] Performing Laboratory Blood [facility] [address] [place] [address] * CBC AND DIFF (11/07/2017 9:30 AM) Component Value Ref Range White Blood Cells 5.8 4.5 - 11.0 K/UL RBC 3.41 (L) 4.0 - 5.0 M/UL Hemoglobin 11.8 (L) 12.0 - 15.0 GM/DL Hematocrit 35.5 (L) 36 - 45 % MCV 104.2 (H) 80 - 100 FL MCH 34.5 (H) 26 - 34 PG MCHC 33.1 32.0 - 36.0 G/DL RDW 13.9 11 - 15 % Platelet Count 173 150 - 400 K/UL MPV 6.8 (L) 7 - 11 FL Neutrophils 54 41 - 77 % Lymphocytes 31 24 - 44 % Monocytes 12 4 - 12 % Eosinophils 2 0 - 5 % Basophils 1 0 - 2 % Absolute Neutrophil Count 3.10 1.8 - 7.0 K/UL Absolute Lymph Count 1.80 1.0 - 4.8 K/UL Absolute Monocyte Count 0.70 0 - 0.80 K/UL Absolute Eosinophil Count 0.10 0 - 0.45 K/UL Absolute Basophil Count 0.10 0 - 0.20 K/UL Specimen Performing Laboratory Blood [facility] [address] [address] in this encounter Visit Diagnoses Diagnosis Malignant neoplasm of central portion of left breast in female, estrogen receptor negative (HCC)
--- OUTSIDE RECORDS SUMMARY | 2018-01-10 11:39 | XMS REPORT | Encounter Summary ---
Author Author [facility] Organization [facility] Address Unknown Phone Unavailable Care Team Providers Care Head Of History Name Role Phone Doctor, Miscellaneous Unavailable Unavailable Mitch Benavides MD PCP Encounter Details Date Type Department Care Team Description 10/30/2017 Documentation [facility] MD Malignant neoplasm of [place] [address] central portion of left [address] [place] [address] breast in female, [address] [place] [address] negative (HCC) (Primary [phone] Dx); S/P mastectomy, left Social History Tobacco Use Types Packs/Day Years [...] as of this encounter Progress Notes * Chelly Scott RN - 10/30/2017 9:56 AM CDT Pt here today for nurse only drain removal appointment. Pt reports and shows documentation of drain output <30ml/ 24hour period x 2 consecutive days. ASHER drain site free from signs of infection or leakage. Physician approval for drain removal obtained. 1 drain(s) removed, pt tolerated procedure well without incident. Dressing placed and care instructions given. Patient has questions regarding "swelling" at her axilla. Patient examined by Coral Scott PA-C and educated that this is just extra skin and tissue and no fluid is present. Patient plans to replace Lázaro wrap around chest for extra compression for 3 day to prevent development of seroma. Educated patient on s/s of seroma and patient will call if these appear. Pt verbalized understanding and denies further questions/ needs at this time. Pt has contact information. Order for bra and prosthesis provided. Patient educated to wait 4-6 weeks following surgery to start wearing prosthesis so her incision has time to heal. Patient verbalizes understanding. Procedure: Drain Removal The drain was removed with gentle traction and inspected and found to be intact. The site was covered with abx ointment, gauze and paper tape. Drain Location: left chest Removal date: 10/30/2017 Complications: None Removal Reason: Clinically Indicated in this encounter Plan of Treatment Not on fileas of this encounter Visit Diagnoses Diagnosis Malignant neoplasm of central portion of left breast in female, estrogen receptor negative (HCC) - Primary S/P mastectomy, left
--- OUTSIDE RECORDS SUMMARY | 2018-01-10 11:39 | XMS REPORT | Encounter Summary ---
Author Author [facility] Organization [facility] Address Unknown Phone Unavailable Care Team Providers Care Bowling Ball Patcher Name Role Phone Doctor, Miscellaneous Unavailable Unavailable Mitch Benavides MD PCP Reason for Visit * Reason Comments Surgical Followup Encounter Details Date Type Department Care Team Description 11/03/2017 Telephone [facility] Lugo MD Surgical Followup [facility] [id number] [place] [address] [facility] [address] [place] [address] [phone] Social History Tobacco Use Types Packs/Day Years [...] encounter Miscellaneous Notes * Telephone Encounter - Meghana Condon RN - 11/03/2017 9:11 AM CDT Pt calling to report left axilla lump the "size of a ping pong ball". Pt states she is hoping to see Dr. Lugo today for eval. Pt offered US appt and Dr. Lugo appt today with arrival at 11am at [facility]. Pt verbalized understanding, agrees to plan, and denies further questions/ needs at this time. Pt has contact information. in this encounter Plan of Treatment Name Priority Associated Diagnoses Order Schedule US AXILLA BREAST IMG RAD LT Routine Malignant neoplasm of Expected: central portion of left (Approximate), Expires: breast in female, 11/03/2018 estrogen receptor negative (HCC) US GUIDE NDL CYST ASPR BRST IMG Routine Malignant neoplasm of Expected: 11/03/2017 central portion of left (Approximate), Expires: breast in female, 11/03/2018 estrogen receptor negative (HCC) as of this encounter Visit Diagnoses Diagnosis Malignant neoplasm of central portion of left breast in female, estrogen receptor negative (HCC) - Primary
--- OUTSIDE RECORDS SUMMARY | 2018-01-10 11:40 | XMS REPORT | Encounter Summary ---
Author Author [facility] Organization [facility] Address Unknown Phone Unavailable Care Team Providers Care Wind Farm Designer Name Role Phone Doctor, Miscellaneous Unavailable Unavailable Mitch Benavides MD PCP Encounter Details Date Type Department Care Team Description 10/23/2017 Hospital [facility] Nitin Pepper MD Encounter Hospital Radiology [address] [place] [address] 2ND FLOOR [phone] [place] [address] [phone] Social History Tobacco Use Types Packs/Day Years Used Date Former Smoker Cigarettes 0.25 5 06/13/1966 - 09/02/1969 Smokeless Tobacco: Never Used Alcohol Use Drinks/Week oz/Week Comments No Sex Assigned at Date Recorded Not on file as of this encounter Functional Status Functional Status Response Date of Assessment Does the patient have a hearing impairment: No 10/23/2017 Does the patient have a visual impairment: Yes 10/23/2017 Does the patient have impaired ambulation: No 10/23/2017 Does the patient have an activity of daily living No 10/23/2017 (ADL) impairment: Does the patient have an instrumental activity of No 10/23/2017 daily living (IADL) impairment: Cognitive Status Response Date of Assessment Does the patient have a cognitive impairment: No 10/23/2017 as of this encounter Medications at Time of Discharge Medication Sig. Disp. Refills Start Date End Date atorvastatin (LIPITOR) 10 Take 10 mg [...] % ophthalmic solution as directed twice daily. diltiazem CD (CARDIZEM Take 180 mg by mouth CD) 180 mg capsule daily. escitalopram oxalate Take 20 mg by mouth at (LEXAPRO) 10 mg tablet bedtime daily. lidocaine/prilocaine Apply to port site 30-45 30 g 0 06/20/2017 (EMLA) 2.5/2.5 % topical minutes prior to port cream access MESALAMINE (CANASA RE) Insert or Apply to rectal area as directed three times weekly. oxyCODONE/acetaminophen Take 1-2 tablets by mouth 40 tablet 0 2017 (ENDOCET) 5/325 mg tablet every 4 hours as needed for Pain Earliest Fill Date: 10/15/17 prochlorperazine maleate Take 1 tablet by mouth [...] every 6 hours as needed for Nausea. ondansetron (ZOFRAN) 4 Administer 4 mL through 4 mL 12 09/22/2017 mg/2 mL solnIndications: vein twice weekly. PRN CANCER nausea/ vomiting CHEMOTHERAPY-INDUCED NAUSEA AND VOMITING pantoprazole DR Take 1 tablet by mouth 180 tablet 3 09/12/201712/03 (PROTONIX) 40 mg tablet twice daily. as of this encounter Plan of Treatment Not on fileas of this encounter Results * NM PET/CT EXTERNAL IMAGING (10/23/2017) Specimen Performing Laboratory OTHER OUTSIDE LAB Narrative This order has been auto finalized and does not contain a result. in this encounter Visit Diagnoses Diagnosis Malignant neoplasm of central portion of left breast in female, estrogen receptor negative (HCC) Ovarian cancer on left (HCC) Malignant neoplasm of ovary
--- OUTSIDE RECORDS SUMMARY | 2018-01-10 11:40 | XMS REPORT | Encounter Summary ---
Author Author [facility] Organization [facility] Address Unknown Phone Unavailable Care Team Providers Care Riverboat Captain Name Role Phone Doctor, Miscellaneous Unavailable Unavailable Mitch Benavides MD PCP Encounter Details Date Type Department Care Team Description 10/23/2017 Procedure Pass [facility] Radiology [address] [place] [address] Social History Tobacco Use Types Packs/Day Years [...] impairment: No 10/23/2017 as of this encounter Plan of Treatment Not on fileas of this encounter Visit Diagnoses Not on filein this encounter
--- OUTSIDE RECORDS SUMMARY | 2018-01-10 11:40 | XMS REPORT | Encounter Summary ---
Author Author [facility] Organization [facility] Address Unknown Phone Unavailable Care Team Providers Care Service Team Leader Name Role Phone Doctor, Miscellaneous Unavailable Unavailable Mitch Benavides MD PCP Reason for Referral * Radiology Services Status Reason Specialty Diagnoses / Referred By Referred To Procedures Contact Contact No Auth Needed Radiology Diagnoses Nitin Pepper Nuclear [place] [address] [place], [place] [address] in female, Phone: Phone: estrogen [phone] receptor Fax: negative (HCC) [phone] Ovarian cancer on left (HCC) P rocedures NM PET SCAN TORSO (SKULL-THIGHS) * Radiology Services Status Reason Specialty Diagnoses / Referred By Referred To Procedures Contact Contact No Auth Needed Radiology Diagnoses Nitin Pepper Nuclear [place] [address] central portion [place], [place] [address] in female, Phone: Phone: estrogen [phone] receptor Fax: negative (HCC) [phone] Ovarian cancer on left (HCC) P rocedures NM PET SCAN TORSO (SKULL-THIGHS) Reason for Visit * Radiology Services Status Reason Specialty Diagnoses / Referred By Referred To Procedures Contact Contact No Auth Needed Radiology Diagnoses Nitin Pepper Nuclear [place] [address] [place] [address] in female, Phone: Phone: estrogen [phone] receptor Fax: negative (HCC) [phone] Ovarian cancer on left (HCC) P rocedures NM PET SCAN TORSO (SKULL-THIGHS) Encounter Details Date Type Department Care Team Description 10/30/2017 [facility] Nitin Pepper MD Encounter Cancer Center Radiology [address] [place] [address] [place] [address] [phone] Social History Tobacco Use Types Packs/Day Years [...] 09/12/201712/03 (PROTONIX) 40 mg tablet twice daily. pegfilgrastim (NEULASTA) Inject 0.6 mL under the 0.6 mL 4 11/10/2017 10/31/2017 6 mg/0.6 mL skin as directed. Every 2 syringeIndications: weeks x 4 doses with PREVENTION OF NEUTROPENIA first dose on 11/10/17 FROM CANCER CHEMOTHERAPY as of this encounter Plan of Treatment Not on fileas of this encounter Results * NM PET SCAN TORSO (SKULL-THIGHS) (10/30/2017 [...] 70 - 100 MG/DL Specimen Performing Laboratory [facility] [address] [place] [address] in this encounter Visit Diagnoses Diagnosis Malignant neoplasm of central portion of left breast in female, estrogen receptor negative (HCC) Ovarian cancer on left (HCC) Malignant neoplasm of ovary Administered Medications Medication Order MAR Action Action Date Dose Rate Site RP DX F-18 FDG injection 10 millicurie Given 10/30/2017 8.9 10 millicurie, Intravenous, ONCE, 1 07:40 CDT millicuries dose, Dominga 10/30/17 at 0915 in this encounter
--- OUTSIDE RECORDS SUMMARY | 2018-01-10 11:40 | XMS REPORT | Encounter Summary ---
Author Author [facility] Organization [facility] Address Unknown Phone Unavailable Care Team Providers Care Cnc Maintenance Technician Name Role Phone Doctor, Miscellaneous Unavailable Unavailable Mitch Benavides MD PCP Reason for Referral * Test Status Reason Specialty Diagnoses / Referred By Referred To Procedures Contact Contact Canceled Cardiology Diagnoses Nitin Pepper-Ovpk Echo/Pv [place] [address] [place] [address] central portion [place], [place], [place] [address] in female, Phone: Phone: estrogen [phone] receptor Fax: negative (HCC) [phone] P rocedures 2-D ECHOCARDIOGRAM ONLY NH ECHO TRANSTHORAC R-T 2D W/WO M-MODE REC COMP Reason for Visit * Reason Comments Heme/Onc Care Encounter Details Date Type Department Care Team Description 10/23/2017 Office Visit [facility] Nitin Pepper MD Malignant neoplasm of Cancer Center - OP Exam [address] central portion of left [address] [place] [address] breast in female, [place], [place] [phone] estrogen receptor [phone] negative (HCC) (Primary [phone] Dx); Ovarian cancer on left (HCC) Social History Tobacco Use Types Packs/Day Years Used Date Former Smoker Cigarettes 0.25 5 06/13/1966 - 09/02/1969 Smokeless Tobacco: Never Used Alcohol Use Drinks/Week oz/Week Comments No Sex Assigned at Date Recorded Not on file as of this encounter Last Filed Vital Signs Vital Sign Reading Time Taken Blood Pressure 111/71 10/23/2017 12:47 PM WHEEL PRESS OPERATOR Pulse 80 10/23/2017 12:47 PM WHEEL PRESS OPERATOR Temperature 36.6 C (97.9 F) 10/23/2017 12:47 PM WHEEL PRESS OPERATOR Respiratory Rate 16 10/23/2017 12:47 PM WHEEL PRESS OPERATOR Oxygen Saturation 99% 10/23/2017 12:47 PM WHEEL PRESS OPERATOR Inhaled Oxygen - - Concentration Weight 55.4 kg (122 lb 3.2 oz) 10/23/2017 12:47 PM WHEEL PRESS OPERATOR Height 167.6 cm (5' 6") 10/23/2017 12:47 PM WHEEL PRESS OPERATOR Body Mass Index 19.72 10/23/2017 12:47 PM WHEEL PRESS OPERATOR in this encounter Functional Status Functional Status [...] impairment: No 10/23/2017 as of this encounter Progress Notes * Nitin Pepper MD - 10/23/2017 1:00 PM WHEEL PRESS OPERATOR Formatting of this note may be different from the original. Name: Callie De La Garza : 1940 AGE: 77 y.o. DATE OF SERVICE: 10/23/2017 Subjective: Reason for Visit: Heme/Onc Care Callie De La Garza is a 77 y.o. female. Malignant neoplasm of central portion of left [...] mass discovered May 2017. 4. Ultrasound at [facility] 06/05/2017 revealed 3 cm left breast mass with multiple abnormal left axillary nodes. 5. Core needle biopsy 06/05/2017 at [facility] showed grade 3 invasive ductal carcinoma in the breast and left axillary nodes, ER 1%, NH 0%, Her2 2+ with FISH negative (ratio [...] with 20% residual tumor cellularity, ER 0%, NH 0%, HER-2 2+, Ki -67 68%. 14 of 16 dissected lymph nodes were-positive for metastatic disease, with treatment effect noted in the florentino metastases as well, ER 0%, NH 0%, HER- 2 2+, Ki-67 87%. Several margins were removed from the skin due to-positive margin on the original specimen and eventually margins were clear of obvious disease, but lymphovascular invasion was noted. Interim History: Clinically, she continues to improve. Energy is a bit better. Her weight is up and should her nausea has resolved. She has not had any fevers or infectious complications. She tolerated her surgery reasonably well and is due to have her drains removed today. 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 No worse. She does note being a bit depressed and despondent given her pathologic findings. I have reviewed and updated the past medical, social and family histories in the history section and they are up to date as of this visit. I have extensively reviewed the laboratory, pathology and radiology, both internal and external, and the michel findings are summarized above. Review of Systems Constitutional: Positive for fatigue. HENT: Positive for postnasal drip. Eyes: Positive for visual disturbance. Neurological: Positive for numbness. Psychiatric/Behavioral: Positive for dysphoric mood and sleep disturbance. The patient is nervous/anxious. All other systems reviewed and are negative. Objective: atorvastatin (LIPITOR) 10 mg tablet Take 10 [...] to right eye as directed twice daily. diltiazem CD (CARDIZEM CD) 180 mg capsule [...] rectal area as directed three times weekly. ondansetron (ZOFRAN) 4 mg/2 mL soln Administer 4 mL through vein twice weekly. PRN nausea/ vomiting oxyCODONE/acetaminophen (ENDOCET) 5/325 mg tablet Take 1-2 tablets by mouth every 4 hours as needed for Pain Earliest Fill Date: 10/15/[address] (PROTONIX) 40 mg tablet Take 1 tablet by mouth twice daily. prochlorperazine maleate (COMPAZINE) 10 mg tablet Take 1 tablet by mouth every 6 hours as needed for Nausea or Vomiting. senna/docusate (SENOKOT-S) 8.6/50 mg tablet Take 1 tablet by mouth twice daily. While taking narcotic pain medication Vitals: 10/23/17 1247 BP: 111/71 Pulse: 80 Resp: 16 Temp: 36.6 C (97.9 F) TempSrc: Oral SpO2: 99% Weight: 55.4 kg (122 lb 3.2 oz) Height: 167.6 cm (66") Body mass index is 19.72 kg/m. Pain Score: Zero Pain Addressed: N/A [...] scleral icterus. Neck: Neck supple. Cardiovascular: Normal rate. Pulmonary/Chest: Effort normal. Status post left mastectomy with drains in place Abdominal: Soft. Musculoskeletal: She exhibits no edema. Neurological: She is alert. Skin: No rash noted. Psychiatric: She has a normal mood and affect. Nursing note and vitals reviewed. 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 Skin extension of disease 3. 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 ECOG PS 1 Plan: 1. I reviewed Ms. De La Garza's pathology in detail and have discussed her case personally with Dr. Lugo. Unfortunately, she was upstaged at surgery with more extensive tumor involvement than was originally evident on her initial exam. There was clear treatment effect in both the tumor and the lymph nodes, indicating that our impression of clinical improvement was probably accurate, but she is failed to achieve definitive control of her disease with extensive persistent florentino disease. 2. Intriguingly, her HER-2 testing was equivocal in both the breast and the nodes with 2+ immunostaining on IHC. FISH testing has been requested and is currently pending. 3. I discussed with her the possibility that she had [id number] clone that was not eradicated with upfront chemotherapy. If she does prove to have HER-2 positivity in the remaining tumor, she would absolutely be a candidate for dual HER-2 blockade with Pertuzumab and trastuzumab in the adjuvant setting. I would anticipate that this would substantially improve her overall prognosis as one would expect that she would be sensitive to her 2 directed treatments. 4. If she proves to have persistent triple negative disease, I discussed with her quite frankly that this is predictive of a poor outcome and frequently the rapid development of metastatic disease. 5. I recommend that we restage her systemically with a repeat PET/CT to ensure that there is no evidence of metastatic breast cancer or progressive ovarian cancer. 6. Regardless of whether she is [id number], one would have to consider whether to offer her anthracyclines. Where she younger, I would quite strongly recommend 4 cycles of ddAC. However, given her age, the benefit of additional cytotoxic chemotherapy is brought into question. I discussed risks and benefits with her today and she would like to think things over, but was overall inclined to pursue an aggressive course of therapy. 7. She unfortunately will not qualify for the adjuvant pembrolizumab clinical trial given her history of ovarian cancer. 8. We would also question whether or not adjuvant this Xeloda would be of use based on CREATEX data. I am less enthusiastic about Xeloda compared to ddAC, but it should be part of the discussion moving forward. 9. Continue BID PPI. Her nausea seems most likely from reflux. 10. RTC with me in 1 week or sooner should new or concerning symptoms develop. I have discussed the diagnosis and treatment plan with the patient and she expresses understanding and wishes to proceed in this encounter Plan of Treatment Not on fileas of this encounter Results * 2-D ECHOCARDIOGRAM ONLY (10/29/2017) Specimen Performing Laboratory [facility] [address] [address] * NM PET/CT EXTERNAL IMAGING (10/23/2017) Specimen Performing Laboratory OTHER OUTSIDE LAB Narrative This order has been auto finalized and does not contain a result. in this encounter Visit Diagnoses Diagnosis Malignant neoplasm of central portion of left breast in female, estrogen receptor negative (HCC) - Primary Ovarian cancer on left (HCC) Malignant neoplasm of ovary
--- OUTSIDE RECORDS SUMMARY | 2018-01-10 11:40 | XMS REPORT | Encounter Summary ---
Author Author [facility] Organization [facility] Address Unknown Phone Unavailable Care Team Providers Care Tour Bus Driver Name Role Phone Doctor, Miscellaneous Unavailable Unavailable Mitch Benavides MD PCP Reason for Visit * Reason Comments Other ASHER drain removal Encounter Details Date Type Department Care Team Description 10/27/2017 Telephone [facility] Lugo MD Other (ASHER drain removal) [place] [address] [facility] [address] [place] [address] [facility] [address] [place] [address] [phone] Social History Tobacco Use Types Packs/Day Years [...] impairment: No 10/23/2017 as of this encounter Miscellaneous Notes * Telephone Encounter - Meghana Condon RN - 10/27/2017 9:41 AM CDT Pt calling to report drain output for drain #1 has remained <30ml per day since her post op visit on 10/23/17 (drain #2 was removed at that visit). Pt states she would like to come to [facility] clinic for drain removal on as she will be in town for other appts. Pt agrees to arrive at [facility] at 2:30pm , Chelly Knutson RN notified as she will be in the office that day. Pt verbalized understanding, agrees to plan, and denies further questions/ needs at this time. Pt has contact information. in this encounter Plan of Treatment Not on fileas of this encounter Visit Diagnoses Not on filein this encounter
--- OUTSIDE RECORDS SUMMARY | 2018-01-10 11:40 | XMS REPORT | Encounter Summary ---
Author Author [facility] Organization [facility] Address Unknown Phone Unavailable Care Team Providers Care Veterinary Technician Assistant Name Role Phone Doctor, Miscellaneous Unavailable Unavailable Mitch Benavides MD PCP Reason for Visit * Reason Comments Heme/Onc Care Encounter Details Date Type Department Care Team Description 10/30/2017 Office Visit [facility] Nitin Pepper MD Malignant neoplasm of Cancer Center - OP Exam [address] central portion of left [address] [place] [address] breast in female, [place], [place] [phone] estrogen receptor [id number] negative (HCC) (Primary [phone] Dx) Social History Tobacco Use Types Packs/Day Years Used Date Former Smoker Cigarettes 0.25 5 06/13/1966 - 09/02/1969 Smokeless Tobacco: Never Used Alcohol Use Drinks/Week oz/Week Comments No Sex Assigned at Date Recorded Not on file as of this encounter Last Filed Vital Signs Vital Sign Reading Time Taken Blood Pressure 130/74 10/30/2017 11:55 AM CDT Pulse 80 10/30/2017 11:55 AM CDT Temperature 36.7 C (98.1 F) 10/30/2017 11:55 AM CDT Respiratory Rate 16 10/30/2017 11:55 AM CDT Oxygen Saturation 100% 10/30/2017 11:55 AM CDT Inhaled Oxygen - - Concentration Weight 56.2 kg (123 lb 12.8 oz) 10/30/2017 11:55 AM CDT Height 167.6 cm (5' 6") 10/30/2017 11:55 AM CDT Body Mass Index 19.98 10/30/2017 11:55 AM CDT in this encounter Functional Status [...] Progress Notes * Nitin Pepper MD - 10/30/2017 12:00 PM CDT Formatting of this note may be different from the original. Name: Callie De La Garza : 1940 AGE: 77 y.o. DATE OF SERVICE: 10/30/2017 Subjective: Reason for Visit: Heme/Onc Care Callie [...] mass discovered May 2017. 4. Ultrasound at [facility] 06/05/2017 revealed 3 cm left breast mass with multiple abnormal left axillary nodes. 5. Core needle biopsy 06/05/2017 at [facility] showed grade 3 invasive ductal carcinoma in the breast and left axillary nodes, ER 1%, SC 0%, Her2 2+ with FISH negative (ratio [...] with 20% residual tumor cellularity, ER 0%, SC 0%, HER-2 2+ with negative FISH, Ki-67 68%. 14 of 16 dissected lymph nodes were-positive for metastatic disease, with treatment effect noted in the florentino metastases as well, ER 0%, SC 0%, HER-2 2+ with negative FISH, Ki-67 87%. Several margins were removed from the skin due to-positive margin on the original specimen and eventually margins were clear of obvious disease, but lymphovascular invasion was noted. 9. Restaging PET/CT negative for distant metastatic disease. 10. DdAC x4 planned Interim History: Doing well. She returns today for discussion of results and treatment planning. There is no significant change in her [...] findings are summarized above. Review of Systems All other systems reviewed and are negative. Objective: [START ON 11/10/2017] 0.9 % SODIUM [...] daily. While taking narcotic pain medication Vitals: 10/30/17 1155 BP: 130/74 Pulse: 80 Resp: 16 Temp: 36.7 C (98.1 F) TempSrc: Oral SpO2: 100% Weight: 56.2 kg (123 lb 12.8 oz) Height: 167.6 cm (66") Body mass index is 19.98 kg/m. Pain Score: Zero Pain Addressed: N/A [...] Receptor Negative (Hcc) Impression: 1. 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 Skin extension of disease 3. 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 ECOG PS 1 Plan: 1. Her PET/CT showed expected postoperative changes without any evidence of distant metastatic disease. This is excellent news and qualifies her for ongoing curative intent therapy. 2. Her HER-2 testing was definitively negative, consistent with the previous results on her skin biopsy. She unfortunately has triple negative breast cancer with relative [place] resistance and failure to clear florentino disease along with extensive breast disease after neoadjuvant chemotherapy. 3. She is aware that her prognosis at this point from the breast cancer without additional therapy is somewhat poor. It is certainly better than the 5% or so patients were truly chemo refractory, but the burden of her florentino disease would indicate that she has an elevated risk of relapse. We had previously discussed giving her adjuvant ddAC and I continue to recommend this. 4. Start ddAC with C1D1=11/07/2017. She will receive the same day teaching visit. 5. Neulasta day 4=11/10/2017. We will arrange for her this to be locally in [place]. 6. Aloxi and Emend day 1. She had some significant nausea previously with her [place] based therapy, and olanzapine may be necessary. 7. We will plan for 4 cycles. 8. Given her concurrent history of ovarian cancer, she will not qualify for the adjuvant pembrolizumab trial. 9. Adjuvant Xeloda can be considered based on CREATEX data. I am less enthusiastic about Xeloda compared to ddAC, but it should be part of the discussion moving forward. 10. Continue BID PPI. Her nausea seems most likely from reflux. 11. RTC with [facility] in 1 week and 2 weeks, with me in 3 weeks, or sooner should new or concerning symptoms develop. I have discussed the diagnosis and treatment plan with the patient and she expresses understanding and wishes to proceed in this encounter Plan of Treatment Name Priority Associated Diagnoses Order Schedule CBC AND DIFF Routine Malignant neoplasm of Once a week for 8 central portion of left Occurrences starting breast in female, 11/07/2017 until estrogen receptor 10/31/2019, 4 completed negative (HCC) COMPREHENSIVE METABOLIC PANEL Routine Malignant neoplasm of Once a week for 8 central portion of left Occurrences starting breast in female, 11/07/2017 until estrogen receptor 10/31/2019, 4 completed negative (HCC) as of this encounter Results * COMPREHENSIVE METABOLIC PANEL (11/27/2017) Component Value Ref Range Sodium Potassium Chloride CO2 Blood Urea Nitrogen Creatinine Glucose Calcium Total Protein Total Bilirubin Albumin Alk Phosphatase AST (SGOT) ALT (SGPT) eGFR Non eGFR Anion Gap Specimen Performing Laboratory [facility] [address] , [address] [place] [address] * CBC AND DIFF (11/27/2017) Component Value Ref Range White Blood Cells RBC Hemoglobin Hematocrit MCV MCH MCHC Platelet Count MPV RDW Neutrophils Absolute Neutrophil Count Lymphocytes Absolute Lymph Count Monocytes Absolute Monocyte Count Eosinophil Absolute Eosinophil Count Basophils Absolute Basophil Count Atypical Lym Metamyelocyte Myelocyte Promyelocyte Blast RBC Morph WBC Morphology Specimen Performing Laboratory [facility] [address] , [address] [place] [address] * COMPREHENSIVE METABOLIC PANEL (11/20/2017 9:59 AM) [...] Performing Laboratory Blood [facility] [address] [place] [address] * CBC AND DIFF (11/20/2017 9:59 AM) [...] 7.0 K/UL Manual Specimen Performing Laboratory Blood [facility] [place] [address] [address] * COMPREHENSIVE METABOLIC PANEL (11/14/2017 9:57 AM) [...] Pharmacist for questions. Specimen Performing Laboratory [facility] [address] [place] [address] * CBC AND DIFF (11/14/2017 9:57 AM) [...] Estimate MOD DEC Specimen Performing Laboratory Blood [facility] [place] [id number] [place] [phone] * COMPREHENSIVE METABOLIC PANEL (11/07/2017 9:30 AM) [...] Pharmacist for questions. Specimen Performing Laboratory [facility] [address] [place] [address] * CBC AND DIFF (11/07/2017 9:30 AM) [...] - 0.20 K/UL Specimen Performing Laboratory Blood [facility] [address] [address] in this encounter Visit Diagnoses Diagnosis Malignant neoplasm of central portion of left breast in female, estrogen receptor negative (HCC) - Primary
--- OUTSIDE RECORDS SUMMARY | 2018-01-10 11:40 | XMS REPORT | Encounter Summary ---
Author Author [facility] Organization [facility] Address Unknown Phone Unavailable Care Team Providers Care Pharmacy Technician Instructor Name Role Phone Doctor, Miscellaneous Unavailable Unavailable Mitch Benavides MD PCP Reason for Visit * Reason Comments Surgical Followup ASHER drain removal Encounter Details Date Type Department Care Team Description 10/29/2017 Telephone [facility] Edie Lugo MD Surgical Followup ( Cancer Center - WW Exam [address] drain removal) [address] [place] [address] [place] [address] [phone] Social History Tobacco Use Types Packs/Day Years [...] Telephone Encounter - Meghana Condon RN - 10/29/2017 2:26 PM CDT Pt calling to state she is now able to come to [facility] at 1015 to meet Chelly HARRIS for ASHER drain removal. Informed pt that Chelly HARRIS will be notified of the time. Pt verbalized understanding, agrees to plan, and denies further questions/ needs at this time. Pt has contact information. in this encounter Plan of Treatment Not on fileas of this encounter Visit Diagnoses Not on filein this encounter
--- OUTSIDE RECORDS SUMMARY | 2018-01-10 11:40 | XMS REPORT | Encounter Summary ---
Author Author [facility] Organization [facility] Address Unknown Phone Unavailable Care Team Providers Care Consumer Marketing Specialist Name Role Phone Doctor, Miscellaneous Unavailable Unavailable Mitch Benavides MD PCP Reason for Referral * Radiology Services Status Reason Specialty Diagnoses / Referred By Referred To Procedures Contact Contact No Auth Needed Radiology Diagnoses Nitin Pepper [facility] [place] [address] central portion [place], [place] [address] in female, Phone: Phone: estrogen [phone] receptor Fax: negative (HCC) [phone] Ovarian cancer on left (HCC) P rocedures NM PET SCAN TORSO (SKULL-THIGHS) Encounter Details Date Type Department Care Team Description 10/23/2017 Orders Only [facility] Nitin Pepper MD Malignant neoplasm of Cancer Center - OP Exam [address] central portion of left [address] [place] [address] breast in female, [place], [place] [phone] estrogen receptor [phone] negative (HCC) (Primary [phone] Dx); Ovarian cancer on left (HCC) Social [...] Reynaldo Geiger M.D. on 10/30/2017 9:33 AM. in this encounter Visit Diagnoses Diagnosis Malignant neoplasm of central portion of left breast in female, estrogen receptor negative (HCC) - Primary Ovarian cancer on left (HCC) Malignant neoplasm of ovary
--- OUTSIDE RECORDS SUMMARY | 2018-01-10 11:41 | XMS REPORT | Encounter Summary ---
Author Author [facility] Organization [facility] Address Unknown Phone Unavailable Care Team Providers Care Lye Machine Operator Name Role Phone Doctor, Miscellaneous Unavailable Unavailable Mitch Benavides MD PCP Encounter Details Date Type Department Care Team Description 10/23/2017 Hospital [facility] Nitin Pepper MD Encounter Cancer Center - OP Lab [id number] [place] [id number] [place] [address] [phone] Social History Tobacco Use Types Packs/Day Years [...] this encounter Results * COMPREHENSIVE METABOLIC PANEL (10/23/2017 12:32 PM) Component Value Ref Range Sodium 135 (L) 137 - 147 MMOL/L Potassium 4.0 3.5 - 5.1 MMOL/L Chloride 101 98 - 110 MMOL/L Glucose 78 70 - 100 MG/DL Blood Urea Nitrogen 16 7 - 25 MG/DL Creatinine 0.95 0.4 - 1.00 MG/DL Calcium 9.7 8.5 - 10.6 MG/DL Total Protein 6.3 6.0 - 8.0 G/DL Total Bilirubin 0.4 0.3 - 1.2 MG/DL Albumin 3.8 3.5 - 5.0 G/DL Alk Phosphatase 47 25 - 110 U/L AST (SGOT) 21 7 - 40 U/L CO2 26 21 - 30 MMOL/L ALT (SGPT) 12 7 - 56 U/L Anion Gap 8 3 - 12 eGFR Non 57 (L) >60 mL/min Comment: The eGFR is not [...] Pharmacist for questions. Specimen Performing Laboratory Blood [facility] [place] [address] * CBC AND DIFF (10/23/2017 12:32 PM) Component Value Ref Range White Blood Cells 7.8 4.5 - 11.0 K/UL RBC 3.31 (L) 4.0 - 5.0 M/UL Hemoglobin 11.6 (L) 12.0 - 15.0 GM/DL Hematocrit 35.0 (L) 36 - 45 % MCV 105.8 (H) 80 - 100 FL MCH 35.0 (H) 26 - 34 PG MCHC 33.0 32.0 - 36.0 G/DL RDW 15.9 (H) 11 - 15 % Platelet Count 211 150 - 400 K/UL MPV 6.7 (L) 7 - 11 FL Neutrophils 54 41 - 77 % Lymphocytes 32 24 - 44 % Monocytes 12 4 - 12 % Eosinophils 1 0 - 5 % Basophils 1 0 - 2 % Absolute Neutrophil Count 4.20 1.8 - 7.0 K/UL Absolute Lymph Count 2.50 1.0 - 4.8 K/UL Absolute Monocyte Count 0.90 (H) 0 - 0.80 K/UL Absolute Eosinophil Count 0.10 0 - 0.45 K/UL Absolute Basophil Count 0.10 0 - 0.20 K/UL Specimen Performing Laboratory Blood [facility] [address] [address] in this encounter Visit Diagnoses Diagnosis Pre-op testing Preoperative examination, unspecified Malignant neoplasm of central portion of left breast in female, estrogen receptor negative (HCC)
--- OUTSIDE RECORDS SUMMARY | 2018-01-10 11:41 | XMS REPORT | Encounter Summary ---
Author Author [facility] Organization [facility] Address Unknown Phone Unavailable Care Team Providers Care Inside Channel Account Manager Name Role Phone Doctor, Miscellaneous Unavailable Unavailable Mitch Benavides MD PCP Encounter Details Date Type Department Care Team Description 10/21/2017 Orders Only [facility] Nitin Pepper MD Malignant neoplasm of Cancer Center - OP Exam [address] central portion of left [address] [place] [address] breast in female, [place], [place] [phone] estrogen receptor [id number] negative (HCC) (Primary [phone] Dx) Social History Tobacco Use Types Packs/Day Years Used Date Former Smoker Cigarettes 0.25 5 06/13/1966 - 09/02/1969 Smokeless Tobacco: Never Used Alcohol Use Drinks/Week oz/Week Comments No Sex Assigned at Date Recorded Not on file as of this encounter Functional Status Functional Status Response Date of Assessment Does the patient have a hearing impairment: No 10/14/2017 Does the patient have a visual impairment: Yes 09/29/2017 Does the patient have impaired ambulation: No 09/29/2017 Does the patient have an activity of daily living No 09/29/2017 (ADL) impairment: Does the patient have an instrumental activity of No 09/29/2017 daily living (IADL) impairment: Cognitive Status Response Date of Assessment Does the patient have a cognitive impairment: No 09/29/2017 as of this encounter Plan of Treatment Not on fileas of this encounter Visit Diagnoses Diagnosis Malignant neoplasm of central portion of left breast in female, estrogen receptor negative (HCC) - Primary
--- OUTSIDE RECORDS SUMMARY | 2018-01-10 11:41 | XMS REPORT | Encounter Summary ---
Author Author [facility] Organization [facility] Address Unknown Phone Unavailable Care Team Providers Care Artificial Flower Maker Name Role Phone Doctor, Miscellaneous Unavailable Unavailable Mitch Benavides MD PCP Encounter Details Date Type Department Care Team Description 10/14/2017 Procedure Pass [facility] [address] Operating Room [address] [place] [address] Social History Tobacco Use Types Packs/Day Years [...]
--- OUTSIDE RECORDS SUMMARY | 2018-01-10 11:41 | XMS REPORT | Encounter Summary ---
Author Author [facility] Organization [facility] Address Unknown Phone Unavailable Care Team Providers Care Housing Inspectors Name Role Phone Doctor, Miscellaneous Unavailable Unavailable Mitch Benavides MD PCP Reason for Visit * Auth/Cert Status Reason Specialty Diagnoses / Referred By Referred To Procedures Contact Contact Diagnoses Malignant neoplasm of central portion of left breast in female, estrogen receptor negative (HCC) Procedures UT MASTECTOMY SIMPLE COMPLETE UT MASTECTOMY SIMPLE COMPLETE UT AXILLARY LYMPHADENECTOMY COMPLETE BIlateral Total Mastectomy DISSECTION LYMPH NODE AXILLARY Encounter Details Date Type Department Care Team Description 10/14/2017 [facility] IP Unit Edie Geiger MD Malignant neoplasm of - Encounter [id number] central portion of left 10/15/2017 [place] [address] [place] [address] breast in female, estrogen receptor negative (HCC) Social History Tobacco Use Types Packs/Day Years Used Date Former Smoker Cigarettes 0.25 5 06/13/1966 - 09/02/1969 Smokeless Tobacco: Never Used Alcohol Use Drinks/Week oz/Week Comments No Sex Assigned at Date Recorded Not on file as of this encounter Last Filed Vital Signs Vital Sign Reading Time Taken Blood Pressure 129/68 10/15/2017 7:34 AM [employer]NET [employer] SPECIALIST Pulse 88 10/15/2017 3:00 AM INTERNET ECOMM[employer] SPECIALIST Temperature 37.1 C (98.7 F) 10/15/2017 7:34 AM INTERNET ECOMMER[employer] SPECIALIST Respiratory Rate - - Oxygen Saturation 97% 10/15/2017 7:34 AM INTERNET ECOMMER[employer] SPECIALIST Inhaled Oxygen - - Concentration Weight 56.4 kg (124 lb 4.8 oz) 10/14/2017 6:39 AM INTERNET ECOMMERCE SPECIALIST Height 167.6 cm (5' 6") 10/14/2017 6:39 AM INTERNET ECOMMER[employer] SPECIALIST Body Mass Index 20.06 10/14/2017 6:39 AM INTERNET ECOMMERCE SPECIALIST in this encounter Functional Status Functional Status [...] impairment: No 09/29/2017 as of this encounter Discharge Instructions * Pre-Anesthesia Medication Instructions - Zenia Bland RN - 10/03/2017 3:28 PM INTERNET ECOMMERCE SPECIALIST Formatting of this note may be different from the original. YOUR MEDICATIONS Current Medications Medication Directions atorvastatin (LIPITOR) 10 mg tablet Take 10 mg by mouth at bedtime daily. diltiazem CD (CARDIZEM CD) 180 mg capsule Take 180 mg by mouth daily. escitalopram oxalate (LEXAPRO) 10 mg tablet Take 10 mg by mouth at bedtime daily. lidocaine/prilocaine (EMLA) 2.5/2.5 % topical cream Apply to port site 30-45 minutes prior to port access LORazepam (ATIVAN) 0.5 mg tablet Take 1 tablet by mouth every 6 hours as needed for Nausea. MESALAMINE (CANASA RE) Insert or Apply to rectal area as directed three times weekly. ondansetron (ZOFRAN) 4 mg/2 mL soln Administer 4 mL through vein twice weekly. PRN nausea/ vomiting pantoprazole DR (PROTONIX) 40 mg tablet Take 1 tablet by mouth twice daily. prochlorperazine maleate (COMPAZINE) 10 mg tablet Take 1 tablet by mouth every 6 hours as needed for Nausea or Vomiting. Before surgery Stop these medicines days before surgery: Morning of surgery On the morning of surgery, take ONLY these medicines with a sip (1-2 ounces) of water: Pantoprazole cardiazem Before going home from the hospital, please ask your doctor when you should re- start your medicines that were stopped before surgery. * Pre-Anesthesia Patient Instructions - Zenia Bland RN - 10/03/2017 3:27 PM INTERNET ECOMMERCE SPECIALIST GENERAL INFORMATION Before you come to the hospital Make arrangements for a responsible adult to drive you home and stay with you for 24 hours following surgery. Bath/Shower Instructions Please refer to Pre-Surgery Shower Instruction sheet Leave money, credit cards, jewelry, and any other valuables at home. [facility] is not responsible for the loss or breakage of personal items. Remove nail tamazight, makeup and all jewelry (including piercings) before coming to the hospital. The morning of your procedure: brush your teeth and tongue do not smoke do not shave the area where you will have surgery What to bring to the hospital ID/ Insurance Card Electrical Installation Inspector card Official documents for legal guardianship Copy of your Living Will, Advanced Directives, and/or Durable Power of Fire Department Battalion Chief Small bag with a few personal belongings Cases for glasses/hearing aids/contact lens (bring solutions for contacts) Dress in clean, loose, comfortable clothing Other personal items such as canes, walkers, and medications in original containers if applicable CPAP or BiPAP Machine: If it is a Angeli/Respironics System One machine please bring machine/humidifier and tubing/mask. All other brands, please bring tubing/mask only on the day of surgery. Eating or drinking before surgery Do not eat anything after 11:00 p.m. the day before your procedure ( including gum, mints, candy, or chewing tobacco). Other instructions Notify your surgeon if: there is a possibility that you are you become ill with a cough, fever, sore throat, nausea, vomiting or flu- like symptoms you have any open wounds/sores that are red, painful, draining, or are new since you last saw the doctor you need to cancel your procedure Notify us at [facility]: if you need to cancel your procedure if you are going to be late Arrival at the [facility] - Your surgery is scheduled on 10-14-17 at 0730. Please arrive at 0545 [facility] is located at [address] [place] [address]. This is at the northwest corner of [place] [address] and [facility]. Use the main entrance of the hospital, at the southeast corner of the building. Parking is free. Check-in for surgery is inside the main entrance. in this encounter Medications at Time of [...] every 6 hours as needed for Nausea. nitrofurantoin Take 1 capsule by mouth 14 capsule 0 10/10/201710/17 monohyd/m-cryst every 12 hours for 7 (MACROBID) 100 mg capsule days. Take with food. ondansetron (ZOFRAN) 4 Administer 4 mL through 4 mL 12 09/22/2017 mg/2 mL solnIndications: vein twice weekly. PRN CANCER nausea/ vomiting CHEMOTHERAPY-INDUCED NAUSEA AND VOMITING pantoprazole DR Take 1 tablet by mouth 180 tablet 3 09/12/201712/03 (PROTONIX) 40 mg tablet twice daily. as of this encounter Progress Notes * Anita Michael, RN - 10/15/2017 1:02 PM INTERNET ECOMMERCE SPECIALIST Pt doing well this morning. Pain is minimal. Drain care education reviewed with pt and family present. Peripheral IV removed. Pt ambulating around unit, tolerating regular diet well. In depth education reviewed, pt needed reinforcement education. Script for percocet and stool softner given to patient. Scheduled appointments made for October 23. Home medications returned to patient. Pt ambulated to car. Seen today by KALEY Hyde and Dr. Geiger. * Mary Ellen Cosme PA-Omero - 10/15/2017 8:22 AM INTERNET ECOMMERCE SPECIALIST Formatting of this note may be different from the original. Breast Surgery Progress Note A/P: 77 year old female with a left breast grade 3 IDC with axillary lymph node and skin involvement. POD #1 s/p left total mastectomy and ALND with skin punch biopsies on 10/14/17 -PO pain control with Percocet -Regular diet -Bowel regimen -ASHER drains to bulb suction -Continue macrobid for UTI -Continue LÁZARO wrap x 48 hours post-op then change to post-op bra -No lifting more than 10 pounds for 6 weeks -Follow up as scheduled with Dr. Geiger -Dispo: discharge to home later today Discussed with Dr. Geiger and will be seen by Dr. Geiger later today. S: No acute events overnight. States her pain is well controlled. Tolerating diet. Denies nausea/emesis. Ambulating. O: Temp: 37.1 C (98.7 F) (10/15 733) Pulse: 88 (10/15 0300) Respirations: 16 PER MINUTE (10/15 733) BP: 129/68 (10/15 733) Date 10/14/17700 - 10/15/17 0710/15/17 07 - 10/16/17 07 Shift 4662-6577 2025-5009 24 Hour Total 9328-9317 0203-4623 24 Hour Total I N T A K E P.O. 960 1300 2260 I.V. (mL/kg/hr) 1680 (2.5) 375 (0.6) 2055 (1.5) Shift Total (mL/kg) 2640 (46.8) 1675 (29.7) 4315 (76.5) O U T P U T Urine (mL/kg/hr) 500 (0.7) 1600 (2.4) 2100 (1.6) Urine 500 1600 2100 Emesis 0 0 Emesis 0 0 Drains 65 50 115 25 25 Drain Output (ml) (Rajat Hurst Drain 10/14/17 1024 Left Breast #1) 30 30 60 15 15 Drain Output (ml) (Rajat Hurst Drain 10/14/17 1024 Left Breast #2) 35 20 55 10 10 Other 50 50 EBL 50 50 Shift Total (mL/kg) 615 (10.9) 1650 (29.3) 2265 (40.2) 25 (0.4) 25 (0.4) NET 2024 Weight (kg) 56.4 56.4 56.4 56.4 56.4 56.4 Physical Exam: Gen: Alert, cooperative, NAD HEENT: NCAT, MMM, non-icteric Cardio: Regular rate Chest: left chest incision c/d/i w/ dressings in place, no surrounding erythema or drainage, 2 quarter sized areas of ecchymosis at lateral left axilla/back, no palpable fluid collections, ASHER drains x 2 with serosanguinous output Pulm: non-labored respirations on RA Ext: warm, dry, no edema/cyanosis of BUE Neuro: moves all extremities, slightly weakened scap reflex on left compared to right Skin: no rashes Mary Ellen Cosme PA-C * Coby Rubio, RN - 10/14/2017 8:00 PM INTERNET ECOMMERCE SPECIALIST PM ASSESSMENT COMPLETED. AT BEDSIDE. LEFT BREAST DRESSING DRY/INTACT. ASHER DRAINS X2 STRIPPED AND EMPTIED OF SMALL AMT S/S DRAINAGE. PT DENIES NEED FOR PAIN MED. PAIN MANAGEMENT REVIEWED WITH PT. IV SITE WITHOUT REDNESS OR EDEMA. PLAN OF CARE REVIEWED WITH PT. PT INSTRUCTED NOT TO GET OUT OF BED WITHOUT STAFF ASSISTANCE. CALL LIGHT IN REACH. * Isabel Garcia, RT - 10/14/2017 2:15 PM INTERNET ECOMMERCE SPECIALIST Formatting of this note may be different from the original. RESPIRATORY THERAPY ADULT PROTOCOL EVALUATION RESPIRATORY PROTOCOL PLAN Medications Note: If indicated by protocol, medication orders will be placed by therapist. Procedures IPPB: Place a nursing order for "IS Q1h While Awake" for any of Lung Expansion indicators Oxygen/Humidity: O2 to keep SpO2 > 95% (O2 to keep SpO2 >/=92% after 24 hours post-op) Monitoring: Pulse oximetry continuous during night/sleep PATIENT EVALUATION RESULTS Chart Review * Pulmonary Hx: No pulmonary diagnosis OR no smoking hx * Surgical Hx: Thoracic or abdominal surgery/injury (LE) * Chest X-Ray: Clear OR not available * PFT/Oxygenation: FEV1, PEFR < 70% OR Pa02 < 70 RA OR Sp02 <92% RA OR Fi02 > 0.21 to keep Sp02 > 92% OR < 24 hours post-op (02 & oxim) OR chronic C02 retention (C02) Patient Assessment * Respiratory Pattern: Regular pattern and rate OR good chest excursion with deep breathing * Breath Sounds: Clear and able to auscultate bases posteriorly * Cough / Sputum: Strong, effective cough OR nonproductive * Mental Status: Alert, oriented, cooperative * Activity Level: Ambulatory Priority Index Total Points: 5 Points * Priority Index: 1 PRIORITY INDEX GUIDELINES* Priority Points 1 0-9 points 2 9-18 points 3 > 18 points + Pulm Dx or Home Rx *Higher points indicate higher acuity. Therapist: Isabel Garcia, RT Date: 10/14/2017 Cleaning AC=Airway clearance AM=Aerosolized medication BA=[place] aerosol DB&C=Deep breathe & cough FEV1=Forced expiratory volume in first second) IC=Inspiratory capacity LE=Lung expansion MDI=Metered dose inhaler Neb=Nebulizer O2=Oxygen Oxim=Oximetry PEFR=Peak expiratory flow rate MAINTENANCE SCHEDULER=Rapid Response Team * Gloria Valentin RN - 10/14/2017 12:29 PM INTERNET ECOMMERCE SPECIALIST Pt admitted to E5 from PACU. Pt alert and awake, oriented to room and call light and stated understanding. Denies of pain when asked, VSS tolerating sips of water without difficulties. Lázaro wrap dressing to breast clean dry and intact. ASHER drains patent with scant amounts. Condition stable will continue to monitor and follow current plan of care. * Ti Hensley, PHARMD - 10/14/2017 7:46 AM INTERNET ECOMMERCE SPECIALIST Pharmacy Note: Patients Own Med The following medications have been identified by pharmacy and placed in the [employer] Patient Own Med Bin for storage: Brinzolaminde Ophthalmic Suspension 1% Carteolol HCl Ophthalmic Solution 1% Briminodine Tartrate Ophthalmic Solution 0.1% Brimatoprost Ophthalmic Solution 0.01% The patient may use their own supply of these medications during this admission. All doses should be administered and documented per hospital policy. in this encounter H&P Notes * Karly Carlton MD - 10/14/2017 7:01 AM INTERNET ECOMMERCE SPECIALIST History and Physical Update Note Allergies: Benadryl [diphenhydramine-zinc acetate] and Epinephrine Lab/Radiology/Other Diagnostic Tests: Pertinent tests reviewed. Point of Care Testing: (Last 24 hours): I have examined the patient, and the following changes are noted from the previous H&P performed on 09/29/17. Patient reports she started a 14 day course of Macrobid on 10/10/17 for a UTI. She has a history of E. coli UTI. Culture results are pending. Plan for left total mastectomy, reverse lymphatic mapping, axillary lymph node dissection, possible skin punch biopsy. All questions and concerns were addressed. Karly Carlton DO Pager: [phone] * Lidia Agarwal, TOBACCO STEMMER - 09/29/2017 11:00 AM INTERNET ECOMMERCE SPECIALIST Formatting of this note may be different from the original. Name: Callie Dominguez : 1940 AGE: 77 y.o. DATE OF SERVICE: 09/29/2017 Subjective: Reason for Visit: 1. Left grade 3 IDC (ER 1%, UT 0%, HER2 2+ equivocal, FISH negative, Ki 67 75%) at 2:00 with known positive left axillary lymph node, dx 05/2017 2. Hx of ovarian cancer, dx 2014 3. Myriad panel testing negative, 07/2015 (patient declined updating her testing at time of breast cancer diagnosis) Ms. Dominguez returns to the clinic today for her pre-op visit. She has one more dose of her neoadjuvant chemotherapy for left, grade 3, triple negative, IDC with a known positive ALN. She has tolerated her treatment fairly well. A recent breast MRI showed the enhancing mass in the left breast to have decreased in size from 6.2 cm to 3.4 cm, but the area of malignancy was replaced by clumped NME extending anteriorly and posteriorly from the mass, extending over an area of 9.2 cm. There was also new asymmetric diffuse skin thickening on the left, with diffuse enhancement. These results were reviewed with Ms. Dominguez in clinic today. Ms. Dominguez is planning to undergo bilateral mastectomy/left ALND and she has met with Dr. Glez to discuss her options for possible reconstruction. Malignant neoplasm of central portion of left breast in female, estrogen receptor negative (HCC) Staging form: Breast, AJCC 7th Edition - Clinical stage from 06/12/2017: Stage IIIC (T2, N3, M0) - Signed by Lidia Valentine APRN-NP on 06/16/2017 Ovarian cancer on left (HCC) Staging form: Ovary, AJCC 7th Edition - Pathologic stage from 07/05/2015: Stage IC (T1c, N0, cM0) - Signed by Nitin Pepper MD on 06/11/2017 History of Present Illness HISTORY: Ms. Dominguez is a female who [...] 1 and 2 lymph nodes were also seen , the largest measuring 1.8 cm. No internal [...] a decrease in the left axillary adenopathy. BREAST IMAGING: Mammogram: ---Diagnostic bilateral mammogram 06/05/17 [...] 06/05/17 ([facility]) showed in the left breast , there was a mass centered at the [...] 1.3 cm. No internal mammary adenopathy. Ancillary findings : Right-sided chest port was in place. -- Breast MRI 09/19/17 ([facility]): Findings- Background enhancement: Minimal Tissue density- extremely [...] in the left axillary adenopathy, with a inbound sales representative lymph node measuring 0.8 x [...] with omentectomy and surgical debulking, 06/2015 (Dr. Estrada ) PERTINENT PMH: 2014 Ovarian Cancer (poorly differentiated [...] ONCOLOGY: Dr. Nitin Ramos PRESENT THERAPY: Neoadjuvant Taxotere/ Carboplatin (06/20/17- present, scheduled to complete therapy 10/06/17) REFERRED BY: Self referral; PCP is Dr. Mitch Benavides; Dr. Alondra Doan is her Gynecologic Oncologist at [facility] Review of Systems Constitutional: Negative for fever, chills, appetite change and fatigue. HENT: Negative for hearing loss, congestion, rhinorrhea and tinnitus. Eyes: Negative for pain, discharge and itching. Respiratory: Negative for cough, chest tightness and shortness of breath. Cardiovascular: Negative for chest pain and palpitations. Gastrointestinal: Negative for abdominal distention, pain, nausea, vomiting, and diarrhea. Genitourinary: Negative for frequency, vaginal bleeding, difficulty urinating and pelvic pain. Musculoskeletal: Negative for myalgias, back pain, joint swelling and arthralgias. Skin: Negative for rash. Neurological: Negative for dizziness, weakness, light-headedness and headaches. Hematological: Does not bruise/bleed easily. Psychiatric/Behavioral: Negative for disturbed wake/sleep cycle. The patient is not nervous/anxious. Allergies Allergen Reactions Benadryl [Diphenhydramine-Zinc Acetate] SEE COMMENTS Pt states makes her restless Epinephrine SEE COMMENTS Pt states makes heart rate high The following medical/surgical/family/social history and the list of medications are current, as of 09/29/2017 Past Medical History: Diagnosis Date Ankylosing spondylitis (HCC) Arthritis Heart disease Hypertension Ovarian cancer (HCC) Stomach disorder Ulcerative colitis (HCC) Vision decreased Past Surgical History: Procedure Laterality Date COLONOSCOPY HX HEART CATHETERIZATION PORTACATH PLACEMENT Family History Problem Relation Age of Onset Cancer-Breast Mother Cancer Maternal Aunt Cancer-Lung Maternal Uncle Cancer-Lung Maternal Grandmother Social History Social History Marital status: Spouse name: Ramesh Number of children: 2 Years of education: 14 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 Social History Main Topics Smoking status: Former Smoker Packs/day: 0.25 Years: 5.00 Types: Cigarettes Start date: 06/13/1966 Smokeless tobacco: Never Used Alcohol use No Drug use: No Sexual activity: Not on file Other Topics Concern Service No Blood Transfusions No Social History Narrative : 56 years Spouse: Ramesh 2 Sons Danilo 51 yrs old Marin 49 yrs old 2 Grandchildren Objective: 0.9 % SODIUM CHLORIDE (SODIUM CHLORIDE 0.9% (NS)) 0.9 % infusion Administer 1,000 mL through vein twice weekly. PRN dehydration, nausea, or vomiting ALPRAZolam (XANAX) 1 mg tablet Take 1 tablet by mouth as directed for 2 doses. After you have signed consent for the breast MRI- take 1 tab 30 minutes prior to the MRI. May repeat the dose one time as needed for anxiety during MRI. atorvastatin (LIPITOR) 10 mg tablet Take 10 mg by mouth daily. diltiazem CD (CARDIZEM CD) 180 mg capsule Take 180 mg by mouth daily. escitalopram oxalate (LEXAPRO) 10 mg tablet Take 10 mg by mouth daily. lidocaine/prilocaine (EMLA) 2.5/2.5 % topical cream Apply to port site 30- 45 minutes prior to port access LORazepam (ATIVAN) 0.5 mg tablet Take 1 tablet by mouth every 6 hours as needed for Nausea. MESALAMINE (CANASA RE) Insert or Apply to rectal area as directed three times weekly. nitrofurantoin monohyd/m-cryst (MACROBID) 100 mg capsule Take 1 capsule by mouth every 12 hours for 7 days. Take with food. OLANZapine (ZYPREXA) 5 mg tablet Take 1 tablet by mouth at bedtime daily. Indications: CANCER CHEMOTHERAPY-INDUCED NAUSEA AND VOMITING ondansetron (ZOFRAN) 4 mg/2 mL soln Administer 4 mL through vein twice weekly. PRN nausea/ vomiting pantoprazole DR (PROTONIX) 40 mg tablet Take 1 tablet by mouth twice daily. pegfilgrastim (NEULASTA) 6 mg/0.6 mL syringe Inject 0.6 mL under the skin as directed. Every 3 weeks x 6 doses with first dose 06/23/17. Indications: PREVENTION OF NEUTROPENIA FROM CANCER CHEMOTHERAPY prochlorperazine maleate (COMPAZINE) 10 mg tablet Take 1 tablet by mouth every 6 hours as needed for Nausea or Vomiting. Vitals: 09/29/17 1137 Resp: 16 Temp: 36.9 C (98.5 F) TempSrc: Oral Weight: 56.4 kg (124 lb 5.4 oz) Height: 167.6 cm (65.98") Body mass index is 20.08 kg/m. Pain Score: Zero Pain Addressed: N/A Patient Evaluated for a Clinical Trial: No treatment clinical trial available for this patient. Eastern Cooperative Oncology Group performance status is 1, Restricted in physically strenuous activity but ambulatory and able to carry out work of a light or sedentary nature, e.g., light house work, office work. Physical Exam Pulmonary/Chest: Vitals reviewed. RIGHT BREAST EXAM: Breast: No palpable masses Skin Erythema: No Peau d' orange: No Nipple Inversion: No Nipple Discharge: No LEFT BREAST EXAM: Breast: Palpable nodularity and density at 2:00, 8 cm FTN Skin Erythema: Yes noninfectious, discontinguous area of erythema overlying the known cancer Attachment of Overlying Skin: No Peau d' orange: No Chest Wall Attachment: No Nipple Inversion: Yes , patient states the left nipple has always appeared inverted Nipple Discharge: No RIGHT FLORENTINO BASIN EXAM: Axillary: negative Infraclavicular: negative Supraclavicular: negative LEFT FLORENTINO BASIN EXAM: Axillary: negative Infraclavicular: negative Supraclavicular: negative Constitutional: Well-developed and well-nourished. No acute distress. HEENT: Head: Normocephalic and atraumatic. Eyes: No discharge. No scleral icterus. Cardiovascular: Normal rate, regular rhythm and normal heart sounds. No murmur or gallop. Pulmonary/Chest: Effort normal and breath sounds normal. No respiratory distress. No wheezes. No rales. Musculoskeletal: No edema. Lymphadenopathy: No axillary adenopathy. No infraclavicular or supraclavicular adenopathy. Neurological: Alert and oriented to person, place and time. No cranial nerve deficit. Skin: Warm and dry. No rash noted. No erythema. No pallor. Skin irritation over port site and port catheter. Psychiatric: Normal mood and affect. Behavior is normal. Judgement and thought content normal. Assessment and Plan: 77 yo female with left, triple negative, IDC with axillary lymph node involvement; completed 5/6 cycles of neoadjuvant Taxotere/Carboplatin Hx of ovarian cancer, dx in 2014 - s/p surgery and chemotherapy (DD carboplatin and paclitaxel x 6 cycles completed November 2015) Myriad panel testing negative, 07/2015 (patient declined updating her testing at time of breast cancer diagnosis) Ms. Dominguez returns to the clinic today for her pre-op visit. She has completed 5/6 cycles of neoadjuvant chemotherapy. Breast MRI 09/19/2017 showed the known cancer to have decreased in size, now measuring 3.4 cm and was previously 6.2 cm. However, this area of malignancy has been replaced by clumped NME in the left upper outer quadrant extending anteriorly and posteriorly from the mass extending over an area of 9.2 cm. There was also new asymmetric diffuse skin thickening on the left, with diffuse skin enhancement, which can be seen with dermal lymphatic invasion in a patient who has not had prior radiation therapy. On clinical exam, there are skin changes of the skin overlying the known malignancy that were concerning for skin involvement and skin punch biopsy was performed in clinic today (see procedure note). A left mastectomy with ALND has been recommended to Ms. Taylor for management of her large left breast cancer with known metastatic disease to an axillary lymph node. She has met with Dr. Augustine in radiation oncology and radiation therapy following mastectomy has also been recommended. Ms. Dominguez met with Dr. Glez to discuss reconstruction options at the time of mastectomy. At the end of today's visit, she decided that she did not want to have reconstruction at the time of mastectomy; she is still unsure on if she would also like a right prophylactic mastectomy at the time of the left mastectomy. Lastly, we discussed that Dr. Ramos contacted the surgery clinic to discuss if the last dose of chemotherapy would be necessary; Dr. Geiger recommended not getting the last dose of neoadjuvant chemotherapy and proceeding to surgery at this time. Ms. Dominguez was agreeable. She was given ample time to ask questions, all of which were answered to her satisfaction. The patient was seen in conjunction with Dr. Edie Geiger today. Operative plan: Left mastectomy/ALND with possible right prophylactic mastectomy (patient will call the clinic with her decision on unilateral vs bilateral mastectomy) Will call patient with skin biopsy results from today. RTC for post-op visit Lidia Aagrwal APRN Addendum - Please note that as part of the visit today I did discuss the case with Dr. Ramos and we are both in agreement with foregoing the last scheduled chemotherapy and proceeding directly to surgery. Her port will remain in place as per my discussion with Dr. Ramos, and I did let the patient know this plan as well. I did discuss with her the risks of surgery including bleeding infection and wound breakdown, along with information that the skin is usually numb/loss of sensation after mastectomy and this is permanent. She is aware she will have the NAC removed at surgery. We discussed that CPM does increase the surgical risk without improving survival from her known cancer, but this certainly is her option to choose. She will let us know this week if she decides unilateral versus bilateral mastectomy. She does not want to proceed with reconstruction at this time, nor does she want to proceed with upfront LVB. She is in agreement with reverse axillary mapping. We have offered a surgical date of 10/14 for left MRM versus left MRM + right CPM and she is in agreement with this date. Edie Geiger MD in this encounter Miscellaneous Notes * Operative Report (Direct Entry) - Edie Geiger MD - 10/14/2017 7:30 AM INTERNET ECOMMERCE SPECIALIST Formatting of this note may be different from the original. Operative Report Surgery Date: 10/14/2017 Incision/Procedure Start Time: 735 Incision Close/Procedure End Time: 10:27 AM Procedure Performed: Left modified radical Mastectomy Left arm injection of blue dye for reverse axillary mapping Skin punch biopsies Surgeon(s) and International Freight Forwarder(s): Surgeon(s) and Role: * Karly Carlton MD - Resident - Assisting * Edie Geiger MD - Primary Anesthesia: General Pre-Operative Diagnosis: Pre-Op Diagnosis Codes: * Malignant neoplasm of central portion of left breast in female, estrogen receptor negative (HCC) [C50.112, Z17.1] Clinical Stage: Malignant neoplasm of central portion of left breast in female, estrogen receptor negative (HCC) Staging form: Breast, AJCC 7th Edition - Clinical stage from 06/12/2017: Stage IIIC (T2, N3, M0) - Signed by Lidia Valentine APRN-NP on 06/16/2017 Post-Operative Diagnosis: Post-Op Diagnosis Codes: * Malignant neoplasm of central portion of left breast in female, estrogen receptor negative (HCC) [C50.112, Z17.1] Indications: Callie Dominguez is a 77 y.o. female who initially presented to outpatient clinic with diagnosis of left breast cancer. She was started on neoadjuvant chemotherapy but mid-treatment MRI documented enlarging area non- mass like enhancement along with thickening of the breast skin. 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 After discussing at tumor board in multidisciplinary fashion, the recommendation was to proceed with surger. I discussed with the patient skin punch biopsies to confirm extent of disease in the OR and to map the incision and skin margins accordingly. After reviewing the risks, benefits, and alternatives, she agreed to proceed with the above noted operation. Procedure: The patient presented to the surgical center on the day of pre-scheduled surgery. The operative site was marked in the preoperative area and the patient was taken to the operating room and placed supine on the table. General anesthesia was administered and the patient was intubated without difficulty. IV antibiotics were given for infection prophylactics. A timeout was performed. 2.5 cc of isosulfan blue dye were injected into the left brachial groove area of the arm for the purposes of reverse axillary mapping. The skin was prepped and draped in the usual sterile fashion. Surgical incision of the left breast was marked to include the nipple-areolar complex as well as the axillary tail skin which was where the prior skin punch confirming inflammatory breast cancer was taken. Attention was turned to the left breast. The incision was made using a 15-blade scalpel. Additional areas of skin punch biopsy were obtained from around the edge of the marked incision in order to try to confirm that all areas of skin involvement had been excised. These were all sent for frozen section. There was a single skin punch specimen which was positive, and thus an additional skin punch from further away was taken. This skin area corresponded to the bridge of normal appearing skin between the pink/ thickened NAC and the skin discoloration in the axillary tail. This 2nd skin punch was negative for malignancy so the incision was extended out to this area , resecting the additional skin. Electrocautery was used to deepen the incision. flaps were created superiorly to the clavicle, medially to the sternum , inferiorly to the inframammary fold, and laterally to the latissimus dorsi muscle. The breast was then removed in its entirety including pectoralis fascia leaving serratus fascia intact. The breast tissue felt very thickened and there was evidence of tissue fluid edema in the upper outer aspect of the breast but there was no evidence of gross involvement of the chest wall. The breast was marked for orientation and sent to pathology for final assessment. Due to N3 disease at diagnosis, axillary dissection was indicated. Dissection then proceeded along the medial border of the serratus muscle leaving serratus fascia intact and taking care to identify and preserve the long thoracic nerve. Dissection continued by identification of the axillary vein, and continued along the axillary vein with all branches double clipped. Attention was then turned toward identification and preservation of the thoracodorsal bundle. The extent of the dissection extended posteriorly to the subscapularis muscle and cephalad to below the pectoralis minor muscle to include all of axillary level I and II. All of the fatty lymphatic contents of the posterior axilla were sent to pathology for final pathologic analysis. There were multiple abnormally feeling nodes within the axillary dissection specimen but no remaining abnormal nodes in the surgical field or upon palpation of level III area. During the axillary dissection there was a single blue colored lymphatic channel on the anterior/superior aspect of the axillary vein which was identified and specifically preserved as part of reverse axillary mapping technique. No blue lymph nodes were identified and no additional lymphatics were identified. Meticulous hemostasis was obtained and again the long thoracic nerve and thoracodorsal bundle were confirmed intact. A 15mm drain was placed in the axilla. In evaluating closure of the skin, there was redundant skin in the bridge between the NAC and the axillary tail inflammatory cancer and additional redundant skin in the axillary tail. This was excised in order to allow for best closure and sent to pathology. Meticulous hemostasis was obtained. A 15mm justine drain was then brought out through a separate incision site for the breast and secured in place. The drain was placed over the anterior chest wall. The deep dermal was then closed using 3-0 vicryl in an interrupted fashion followed by skin re-approximated using 4-0 monocryl in running subcuticular fashion. Prior to final closure, all sponge and instrument counts were confirmed correct. Dermabond was placed over both incision sites, along with sterile dressing. The patient woke in the operating room and was transported to recovery in stable condition. Estimated Blood Loss: 50cc Specimen(s) Removed/Disposition: ID Type Source Tests Collected by Time Destination 1 : LEFT MASTECTOMY SHORT STITCH SUPERIOR LONG STITCH LATERAL Tissue Breast SURGICAL PATHOLOGY Edie Geiger MD 10/14/2017 0853 2 : LEFT 9 O'CLOCK 4 CMFN SKIN PUNCH Tissue Breast SURGICAL PATHOLOGY Edie Geiger MD 10/14/2017 0758 3 : LEFT 10 O'CLOCK 4 CMFN SKIN PUNCH Tissue Breast SURGICAL PATHOLOGY Edie Geiger MD 10/14/2017 0759 4 : LEFT AXILLARY CONTENTS Tissue Lymph Node (Specify) SURGICAL PATHOLOGY Edie Geiger MD 10/14/2017 0943 5 : LEFT 1 O'CLOCK 9 CMFN SKIN PUNCH Tissue Breast SURGICAL PATHOLOGY Edie Geiger MD 10/14/2017 0811 6 : LEFT 1 O'CLOCK 8 CMFN SKIN PUNCH Tissue Breast SURGICAL PATHOLOGY Edie Geiger MD 10/14/2017 0838 7 : LEFT ADDITIONAL ANTEOR SKIN MARGIN. SHORT SUPERIOR LONG LATERAL STITCH WITH CLIPS ORTEGA KNOWN INFLAMMATORY AREA Tissue Breast SURGICAL PATHOLOGY Edie Geiger MD 10/14/2017 0957 8 : LEFT ADDITIONAL AXILLARY SKIN. SHORT STITCH SUPERIOR. LONG STITCH LATERAL Tissue Breast SURGICAL PATHOLOGY Edie Geiger MD 10/14/2017 1008 Drains: two 15mm drains in Left chest wall Complications: none I personally performed the entire procedure with assistance. SIGNATURE: Edie Geiger MD PATIENT NAME: Callie Dominguez DATE: October 14, 2017 TIME: 10:27 AM in this encounter Plan of Treatment Name Priority Associated Diagnoses Order Schedule SURGICAL PATHOLOGY Routine Malignant neoplasm of ONCE for 1 Occurrences central portion of left starting 10/14/2017 breast in female, estrogen receptor negative (HCC) as of this encounter Procedures Procedure Name Priority Date/Time Associated Diagnosis Comments ECG-SCAN 10/16/2017 Results for this 12:59 PM INTERNET ECOMMERCE SPECIALIST procedure are in the results section. LEFT AXILLARY LYMPH NODE 10/14/2017 Malignant neoplasm of DISSECTION 7:30 AM INTERNET ECOMMERCE SPECIALIST central portion of left breast in female, estrogen receptor negative (HCC) Special Needs 10/06 PER CHANGE FORM, REVISE PROCEDURE AND CASE LENGTH. BEKA ([id number])10/09 PER CHANGE FORM, ADD MESSAGE TO CASE COMMENTS. BEKA ([id number]) LEFT TOTAL MASTECTOMY, 10/14/2017 Malignant neoplasm of REVERSE LYMPHATIC 7:30 AM INTERNET ECOMMERCE SPECIALIST central portion of left MAPPING, SKIN PUNCH breast in female, BIOPSY estrogen receptor negative (HCC) Special Needs 10/06 PER CHANGE FORM, REVISE PROCEDURE AND CASE LENGTH. BEKA ([id number])10/09 PER CHANGE FORM, ADD MESSAGE TO CASE COMMENTS. BEKA ([id number]) in this encounter Results * PATHOLOGY INTEROPERATIVE REPORT SCAN (11/03/2017 10:29 AM) Narrative Ordered by an unspecified provider. * CYTOGENETICS SCAN (10/23/2017 2:56 PM) Narrative Ordered by an unspecified provider. * TUMOR PROGNOSTIC MARKERS SCAN (10/23/2017 8:45 AM) Narrative Ordered by an unspecified provider. * ECG-SCAN (10/16/2017 12:59 PM) Narrative Ordered by an unspecified provider. * CHROMOSOMES FISH DNA PROBE (10/14/2017 8:10 AM) Component Value Ref Range Chromosomes Fish DNA SEE COMPUTER AIDED DESIGN TECHNICIAN FOR REPORT Probe Specimen Performing Laboratory [facility] [address] [place] [address] * SURGICAL PATHOLOGY (10/14/2017 8:10 AM) Component Value Ref Range PATHOLOGY REPORT [facility] [email or web address] Department of Pathology and Laboratory Medicine [address] [place] [id number] Surgical Pathology Office:[phone]:[phone] SURGICAL PATHOLOGY REPORT NAME: CALLIE DOMINGUEZ SURG PATH #: [id number] MR #: [id number] SPECIMEN CLASS: SI BILLING #: [id number] ALT ID #:LOCATION: [facility] DATE OF PROCEDURE: 10/14/2017 AGE:77 SEX: F [...] Negative Stain Intensity: Not Applicable Progesterone Receptor (UT): 0% Negative Stain Intensity: Not Applicable Her2: 2+ Equivocal Ki-67 68% Testing performed on block Number: F5 Estrogen Receptor (ER):0% Negative Stain Intensity: Not Applicable Progesterone Receptor (UT): 0% Negative Stain Intensity: Not Applicable Her2: 2+ Equivocal Ki-67 87% The original image analysis report is scanned in [employer] under Results Review. Deshaun Estrogen receptor antibody, [...] 20% Histologic Type: Invasive ductal Histologic Grade (Yadira Histologic Score):III/III Tubule Formation: 3 Nuclear Grade: 3 Mitotic Count (40x objective): 3 Total Oblong Score: 9/9 Ductal Carcinoma In-situ (DCIS): Not [...] Total number of involved nodes/total nodes found: 14/16 Number of lymph nodes with macrometastases (>2 [...] is inked blue. Axillary dissection attached: No Media Analytics Manager sections of the specimen are submitted as follows: E1 Media Analytics Manager sections of the upper outer quadrant. E2 Media Analytics Manager sections of the lower outer quadrant. E3 Media Analytics Manager sections of the lower inner quadrant. E4 Media Analytics Manager sections of the upper inner quadrant. E5 Entire shave of 12:00 to 3:00 skin margin of 2nd fragment of skin. F8Uihnqz shave of 3:00 to 6:00 skin margin of 2nd fragment of skin. T6Jahacs shave of 6:00 to 9:00 skin margin of 2nd fragment of skin. X5Hqkurb shave of 9:00 to 12:00 skin margin of 2nd fragment of skin. P8Jxwrpv shave of 12:00 to 3:00 skin margin of 1st fragment of skin. X25Knccle shave 3:00 to 6:00 skin margin of 1st fragment of skin. V10Acildf shave of 6:00 to 9:00 skin margin of 1st fragment of skin. P95Tbxjgu shave of 9:00 to 12:00 skin margin of 1st fragment of skin. E13-E14 Entire nipple, serially sectioned. I29Qznc lateral slice of lesion. W05Qqwq consecutive slice of lesion. E17-E18 Next consecutive [...] palpebral lymph nodes are submitted as follows: Q8Udkhylsj possible lymph nodes. I6Jbjrv possible lymph nodes. F3-F4Four possible lymph nodes [...] identified on the surface of the skin. Media Analytics Manager sections are submitted as follows: G1-O1Ctuvfm shave of superior margin. G3-B9Nzigdt shave of medial margin. G5-Y9Qoetfr shave of inferior margin. F9Xjjsieuhfrogd inbound sales representative sections of known inflammatory area (false margin). G8-W3Cvarteefhqclfn sections of skin. (sld) H. Received fresh [...] for malignancy. Frozen section performed at the [facility], [address] [place] [address]. Janny Arias MD, PhD If immunohistochemical stains and/or in situ hybridization are cited in this report, the performance characteristics were determined by the Department of Pathology and Laboratory Medicine of the [facility] ([employer]) in compliance with CLIA'88 regulations.Some [...] necessary. Specimen Performing Laboratory [facility] RESULTS in this encounter Visit Diagnoses Diagnosis Malignant neoplasm of central portion of left breast in female, estrogen receptor negative (HCC) - Primary Admitting Diagnoses Diagnosis Malignant neoplasm of central portion of left breast in female, estrogen receptor negative (HCC) Breast cancer (HCC) Administered Medications Medication Order MAR Action Action Date Dose Rate Site atorvastatin (LIPITOR) tablet 10 mg Given 10/14/2017 10 mg 10 mg, Oral, AT BEDTIME DAILY, First 21:05 INTERNET ECOMMERCE SPECIALIST dose on Fri10/14/17 at 2100, Until Discontinued bimatoprost(+) (LUMIGAN) 0.03 % Given 10/14/2017 1 drop ophthalmic solution 1 drop 18:23 INTERNET ECOMMERCE SPECIALIST 1 drop, Right Eye, DAILY, First dose on Fri10/14/17 at 2000, Until Discontinued, Patient own medication brimonidine(+) (ALPHAGAN P) 0.1 % Given 10/14/2017 1 drop ophthalmic solution 1 drop 18:22 INTERNET ECOMMERCE SPECIALIST 1 drop, Right Eye, TWICE DAILY, First dose on Fri10/14/17 at 2000, Until Discontinued, Patient own medication Given 10/15/2017 1 drop 08:16 INTERNET ECOMMERCE SPECIALIST brinzolamide(+) (AZOPT) 1 % ophthalmic Given 10/14/2017 1 drop suspension 1 drop 18:17 INTERNET ECOMMERCE SPECIALIST 1 drop, Right Eye, TWICE DAILY, First dose on Fri10/14/17 at 2000, Until Discontinued, Patient own medication Given 10/15/2017 1 drop 08:16 INTERNET ECOMMERCE SPECIALIST carteolol(+) (OCUPRESS) 1 % ophthalmic Given 10/14/2017 1 drop solution 1 drop 18:23 INTERNET ECOMMERCE SPECIALIST 1 drop, Right Eye, TWICE DAILY, First dose on Fri10/14/17 at 2000, Until Discontinued Given 10/15/2017 1 drop 08:16 INTERNET ECOMMERCE SPECIALIST dextrose 5 % & 0.45% NaCl with KCl 20 Given - New 10/14/2017 75 mL/hr mEq/L infusion Bag 12:45 INTERNET ECOMMERCE SPECIALIST 1,000 mL, Intravenous, at 75 mL/hr, CONTINUOUS, Starting Fri10/14/17 at 1230, Until Fri10/15/17 at 1504, Lock IV fluids after patient tolerating oral intake. diltiazem CD (cardIZEM CD) capsule 180 Given 10/15/2017 180 mg mg 08:14 INTERNET ECOMMERCE SPECIALIST 180 mg, Oral, DAILY, First dose on Fri10/15/17 at 0900, Until Discontinued escitalopram oxalate (LEXAPRO) tablet 10 Given 10/14/2017 10 mg mg 21:05 INTERNET ECOMMERCE SPECIALIST 10 mg, Oral, AT BEDTIME DAILY, First dose on Fri10/14/17 at 2100, Until Discontinued famotidine (PEPCID) tablet 20 mg Given 10/14/2017 20 mg 20 mg, Oral, AT BEDTIME DAILY, First 18:09 INTERNET ECOMMERCE SPECIALIST dose on Fri10/14/17 at 2100, Until Discontinued fentaNYL citrate PF (SUBLIMAZE) Given 10/14/2017 50 mcg injection 50 mcg 11:35 INTERNET ECOMMERCE SPECIALIST 50 mcg, Intravenous, EVERY 5 MIN PRN, Starting Fri10/14/17 at 1027, Until Fri10/14/17 at 1207, Pain Injectable, For Pain Score 4-6, Maximum total dose 200 mcg Hold if RR < 10 lactated ringers infusion Given - New 10/14/2017 20 mL/hr Arm, Right 1,000 mL, Intravenous, at 20 mL/hr, Bag 06:58 INTERNET ECOMMERCE SPECIALIST CONTINUOUS, Starting Fri10/14/17 at 0645, Until Fri10/14/17 at 1226, Pre-Op Given - New Bag 10/14/2017 10:24 INTERNET ECOMMERCE SPECIALIST LIDOCAINE (PF) 10 MG/ML (1 %) IJ SOLN (Cabinet Override) NOW, 1 dose, Fri10/14/17 at 0645, Created by cabinet override lidocaine PF 1% (10 mg/mL) injection Given 10/14/2017 2 mL 0.1-2 mL 06:58 INTERNET ECOMMERCE SPECIALIST 0.1-2 mL, Injection, NEEDED, Starting Fri10/14/17 at 0737, Until Fri10/14/17 at 1207, Other..., for IV insertion, Pre-Op nitrofurantoin monohyd/m-cryst Given 10/14/2017 100 mg (MACROBID) capsule 100 mg 17:32 INTERNET ECOMMERCE SPECIALIST 100 mg, Oral, TWICE DAILY, First dose on Fri10/14/17 at 2000, Until Discontinued, Take with food. Given 10/15/2017 100 mg 08:14 INTERNET ECOMMERCE SPECIALIST oxyCODONE/acetaminophen (PERCOCET; Given 10/14/2017 1 tablet ENDOCET; ROXICET) 5/325 mg tablet 1-2 21:05 INTERNET ECOMMERCE SPECIALIST tablet 1-2 tablet, Oral, EVERY 4 HOURS PRN, Starting Fri10/14/17 at 1226, Until Fri10/15/17 at 1504, Pain PO, TOTAL ACETAMINOPHEN DOSE NOT TO EXCEED 4GM DAILY Given 10/15/2017 1 tablet 03:23 INTERNET ECOMMERCE SPECIALIST Given 10/15/2017 1 tablet 12:08 INTERNET ECOMMERCE SPECIALIST [address] (PROTONIX) tablet 40 mg Given 10/15/2017 40 mg 40 mg, Oral, TWICE DAILY, First dose on 08:14 INTERNET ECOMMERCE SPECIALIST Fri10/14/17 at 2100, Until Discontinued, Do not crush or chew tablet. in this encounter
--- OUTSIDE RECORDS SUMMARY | 2018-01-10 11:41 | XMS REPORT | Encounter Summary ---
Author Author [facility] Organization [facility] Address Unknown Phone Unavailable Care Team Providers Care Track Coach Name Role Phone Doctor, Miscellaneous Unavailable Unavailable Mitch Benavides MD PCP Reason for Visit * Reason Comments Heme/Onc Care Encounter Details Date Type Department Care Team Description 10/23/2017 Office Visit [facility] Nitin Pepper MD Malignant neoplasm of Cancer [facility] [address] central portion of left [address] [place] [address] breast in female, [place] [address] estrogen receptor [phone] negative (HCC) Lidia Bernstein, HOT BOX CHECKER [address] [place] [address] [phone] Social History Tobacco Use Types Packs/Day Years Used Date Former Smoker Cigarettes 0.25 5 06/13/1966 - 09/02/1969 Smokeless Tobacco: Never Used Alcohol Use Drinks/Week oz/Week Comments No Sex Assigned at Date Recorded Not on file as of this encounter Last Filed Vital Signs Vital Sign Reading Time Taken Blood Pressure 111/71 10/23/2017 2:54 PM [facility]ORTS [facility] Pulse 80 10/23/2017 2:54 PM [facility] Temperature 36.6 C (97.9 F) 10/23/2017 2:54 PM [facility]TS [facility] Respiratory Rate - - Oxygen Saturation 99% 10/23/2017 2:54 PM [facility] Inhaled Oxygen - - Concentration Weight 55.4 kg (122 lb 3.2 oz) 10/23/2017 2:54 PM [facility] Height 167.6 cm (5' 6") 10/23/2017 2:54 PM [facility]TS [facility] Body Mass Index 19.72 10/23/2017 2:54 PM [facility]TS [facility] in this encounter Functional Status Functional Status [...] of this encounter Progress Notes * Lidia Agarwal, HOT BOX CHECKER - 10/23/2017 2:15 PM [employer]TS [employer] HPI: Ms. Tomas returns to the clinic for her first post-op visit. 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 She states that her pain is well-managed on her prescribed pain medications. PHYSICAL EXAM: Breast: left Incision: Healing well Erythema: No Ecchymosis: No Seroma: No Axilla: Incision: No separate incision Erythema: No Ecchymosis: No Seroma: No Upper Extremity: ROM: [place] scapula: No Lymphedema: No PATHOLOGY: Addendum Comment Breast Cancer Prognostic Panel by Quantitative Computer-Assisted Image Analysis Testing performed on block Number: E22 Estrogen Receptor (ER): 0% Negative Stain Intensity: Not Applicable Progesterone Receptor (VT): 0% Negative Stain Intensity: Not Applicable Her2: 2+ Equivocal Ki-67 68% Testing performed on block Number: F5 Estrogen Receptor (ER): 0% Negative Stain Intensity : Not Applicable Progesterone Receptor (VT): 0% Negative Stain Intensity: Not Applicable Her2: 2+ Equivocal Ki-67 87% The original image analysis report is scanned in [employer]abi under Results Review. Deshaun Estrogen receptor antibody, Clone SP1, is Food and Drug Administration cleared. Dako Progesterone Receptor antibody, Clone 636, is Food and Drug administration cleared. Dako HercepTest, HER2 antibody is a FDA approved kit. 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 FISH studies will be performed to assess amplification of the HER-2 gene due to EQUIVOCAL immunoperoxidase results. Final Diagnosis: A. Skin, "left 900 4 [...] changes. See checklist. F. 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 Healing well. Ms. De La Garza's pathology was reviewed with her today in detail and she was provided with a copy for her records. She has two ASHER drains in place, and one is ready to be removed today. She will return in 1 week to have the other drain removed. We discussed that she should follow up with her medical oncologist and we would also schedule her to see a radiation oncologist to discuss any additional treatment recommendations. She was given ample time to have all of her questions answered. The patient was seen in conjunction with Dr. Edie Lugo today. PLAN: RTC in 1 week for drain removal Follow-up with Dr. Ramos Consult with Dr. Augustine RTC in 6 months with KULWINDER Willard APRN * Lidia Agarwal APRN - 10/23/2017 2:15 PM SHORTS SIFTER .Pt here today for nurse only drain removal appointment. Pt reports and shows documentation of drain output <30ml/ 24hour period x 2 consecutive days. ASHER drain site free from signs of infection or leakage. Physician approval for drain removal obtained. One drain removed, pt tolerated procedure well without incident. Dressing placed and care instructions given. Pt verbalized understanding and denies further questions/ needs at this time. Pt has contact information. Procedure: Drain Removal The drain was removed with gentle traction and inspected and found to be intact. The site was covered with CHG dressing. Drain Location: RIGHT chest wall Removal date: 10/23/2017 Complications: none Removal Reason: Clinically Indicated in this encounter Plan of Treatment Not on fileas of this encounter Visit Diagnoses Diagnosis Malignant neoplasm of central portion of left breast in female, estrogen receptor negative (HCC)
--- OUTSIDE RECORDS SUMMARY | 2018-01-10 11:41 | XMS REPORT | Encounter Summary ---
Author Author [facility] Organization [facility] Address Unknown Phone Unavailable Care Team Providers Care Mortgage Professional Name Role Phone Doctor, Miscellaneous Unavailable Unavailable Mitch Benavides MD PCP Reason for Visit * Reason Comments Surgical Followup drain question Encounter Details Date Type Department Care Team Description 10/17/2017 Telephone [facility] Edie Lugo MD Surgical Followup ([facility] Exam [address] question) [address] [place] [address] [place] [address] [phone] Social History Tobacco Use Types Packs/Day Years [...] impairment: No 09/29/2017 as of this encounter Miscellaneous Notes * Telephone Encounter - Meghana Condon RN - 10/17/2017 11:20 AM SOCIAL SERVICES ANALYST Pt calling to report that the drain under her axilla does not have much output, approx 17ml/24hr. Pt denies any sx of fluid collection or infection. Informed pt this is expected and as long as she doesn't feel any fluid collection or notice a blockage in the drain there is no concern. Pt states she is otherwise doing well and pain is well controlled. Pt verbalized understanding, agrees to plan, and denies further questions/ needs at this time. Pt has contact information. in this encounter Plan of Treatment Not on fileas of this encounter Visit Diagnoses Not on filein this encounter
--- NOTE | 2018-01-10 11:42 | ED General ---
General Chief Complaint: Abdominal/GI Problems Stated Complaint: CHEMO,NEEDS FLUIDS,N/V Nursing Triage Note: patient reports increased weakness n/v Nursing Sepsis Screen: No Definite Risk Source of Information: Patient Exam Limitations: No Limitations History of Present Illness Date Seen by Provider: January 10, 2018 Time Seen by Provider: 11:41 Initial Comments Very pleasant lady presents to ER By her with reports of severe weakness since yesterday nausea and vomiting. She is on Adriamycin and Cytoxan chemotherapy for triple negative breast cancer. Her most recent and final dose of chemotherapy was 8 days ago. She follows with Dr. Reynaldo Ramos at the [facility] from oncology. 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 She denies fevers or chills. Timing/Duration: 1-2 Days Severity: Moderate Associated Systoms: No Fever/Chills; Nausea/Vomiting Allergies and Home Medications Allergies Coded Allergies: No Known Allergies (Verified Allergy, Unknown, 10/21/16) Patient Home Medication List Home Medication List Reviewed: Yes Review of Systems Constitutional: see HPI; No chills, No fever EENTM: see HPI Respiratory: no symptoms reported Cardiovascular: no symptoms reported Genitourinary: no symptoms reported Musculoskeletal: no symptoms reported Skin: no symptoms reported Psychiatric/Neurological: No Symptoms Reported Hematologic/Lymphatic: No Symptoms Reported Past Pnnssxr-Plavtx-Uuqibs Hx Patient Social History Alcohol Use: Denies Use Recreational Drug Use: No Smoking Status: Former Smoker Type Used: Cigarettes Recent Foreign Travel: No Contact w/Someone Who Travel: No Recent Infectious Disease Expo: No Recent Hopitalizations: No Immunizations Up To Date Tetanus Booster (TDap): Unknown PED Vaccines UTD: No Seasonal Allergies Seasonal Allergies: No Past Medical History Surgeries: Yes (PORT PLACEMENT, BUNION/SPUR REMOVAL FROM FOOT) Eye Surgery, Hysterectomy Respiratory: No Cardiac: Yes (MVP) Hypertension Genitourinary: No Gastrointestinal: No Musculoskeletal: No HEENT: Yes Cataract, Glaucoma Cancer: Yes Ovarian Psychosocial: Yes Anxiety Integumentary: No Physical Exam Vital Signs Vital Signs - First Documented 01/10/18 11:37 Temp 98.4 Pulse 103 Resp 18 B/P (MAP) 102/66 (78) Pulse Ox 98 Capillary Refill : Less Than 3 Seconds General Appearance: No Apparent Distress, WD/WN, Cachetic Eyes: Bilateral Eye Normal Inspection, Bilateral Eye PERRL, Bilateral Eye EOMI HEENT: PERRL/EOMI, TMs Normal Neck: Full Range of Motion, Normal Inspection Respiratory: Normal Breath Sounds, No Accessory Muscle Use, No Respiratory Distress Cardiovascular: Regular Rate, Rhythm, Normal Peripheral Pulses Gastrointestinal: Non Tender, Soft Extremity: Normal Capillary Refill, Normal Inspection Neurologic/Psychiatric: Alert, Oriented x3 Skin: Normal Color, Warm/Dry Comments 1200- her heart rate is 103, she is afebrile at 98.4, her blood pressure is 89/ 62. White count 0.3, platelets 30,000, hemoglobin 8.4, 7% neutrophils and 71% lymphocytes. Focused Exam Lactate Level 01/10/18 12:37: Lactic Acid Level 0.92 Lactic Acid Level Laboratory Tests Test 01/10/18 12:37 Lactic Acid Level 0.92 MMOL/L (0.50-2.00) Procedures/Interventions Suture Size: 5-0 Progress/Results/Core Measures Suspected Sepsis Recent Fever Within 48 Hours: No Infection Criteria Present: None New/Unexplained Altered Menta: No Sepsis Screen: No Definite Risk SIRS Temperature:98.4 Pulse: 103 Respiratory Rate: 18 Laboratory Tests 01/10/18 11:50: White Blood Count 0.3*L Blood Pressure 102 /66 Mean: 78 01/10/18 12:37: Lactic Acid Level 0.92 Laboratory Tests 01/10/18 11:50: Creatinine 0.78, Platelet Count 38*L, Total Bilirubin 1.1H Results/Orders Lab Results Laboratory Tests Test 01/10/18 11:50 01/10/18 12:37 01/10/18 14:00 01/10/18 14:13 Range/Units White Blood Count 0.3 *L 4.3-11.0 10^3/uL Red Blood Count 2.47 L 4.35-5.85 10^6/uL Hemoglobin 8.2 L 7.0 L 11.5-16.0 G/DL Hematocrit 24 L 21 L 35-52 % Mean Corpuscular Volume 99 80-99 FL Mean Corpuscular Hemoglobin 33 25-34 PG Mean Corpuscular Hemoglobin Concent 34 32-36 G/DL Red Cell Distribution Width 15.9 H 10.0-14.5 % Platelet Count 38 *L 130-400 10^3/uL Mean Platelet Volume 9.2 7.4-10.4 FL Neutrophils (%) (Auto) 7 L 42-75 % Lymphocytes (%) (Auto) 71 H 12-44 % Monocytes (%) (Auto) 18 H 0-12 % Eosinophils (%) (Auto) 0 0-10 % Basophils (%) (Auto) 4 0-10 % Neutrophils # (Auto) 0.0 L 1.8-7.8 X 10^3 Lymphocytes # (Auto) 0.2 L 1.0-4.0 X 10^3 Monocytes # (Auto) 0.1 0.0-1.0 X 10^3 Eosinophils # (Auto) 0.0 0.0-0.3 10^3/uL Basophils # (Auto) 0.0 0.0-0.1 10^3/uL Sodium Level 133 L 135-145 MMOL/L Potassium Level 4.2 3.6-5.0 MMOL/L Chloride Level 102 98-107 MMOL/L Carbon Dioxide Level 21 21-32 MMOL/L Anion Gap 10 5-14 MMOL/L Blood Urea Nitrogen 14 7-18 MG/DL Creatinine 0.78 0.60-1.30 MG/DL Estimat Glomerular Filtration Rate > 60 BUN/Creatinine Ratio 18 Glucose Level 110 H 70-105 MG/DL Calcium Level 9.2 8.5-10.1 MG/DL Total Bilirubin 1.1 H 0.1-1.0 MG/DL Aspartate Amino Transf (AST/SGOT) 10 5-34 U/L Alanine Aminotransferase (ALT/SGPT) 11 0-55 U/L Alkaline Phosphatase 61 40-136 U/L Total Protein 6.0 L 6.4-8.2 GM/DL Albumin 3.9 3.2-4.5 GM/DL Lactic Acid Level 0.92 0.50-2.00 MMOL/L Urine Color YELLOW Urine Clarity CLEAR Urine pH 7 5-9 Urine Specific [place] 1.010 L 1.016-1.022 Urine Protein NEGATIVE NEGATIVE Urine Glucose (UA) NEGATIVE NEGATIVE Urine Ketones NEGATIVE NEGATIVE Urine Nitrite NEGATIVE NEGATIVE Urine Bilirubin NEGATIVE NEGATIVE Urine Urobilinogen NORMAL NORMAL MG/DL Urine Leukocyte Esterase NEGATIVE NEGATIVE Urine RBC (Auto) 2+ H NEGATIVE Urine RBC RARE /HPF Urine WBC RARE /HPF Urine Squamous Epithelial Cells RARE /HPF Urine Crystals NONE /LPF Urine Bacteria NEGATIVE /HPF Urine Casts NONE /LPF Urine Mucus NEGATIVE /LPF Urine Culture Indicated NO My Orders Orders - CHRISTOS LAMB APRN Cbc With Automated Diff (01/10/18 11:39) Comprehensive Metabolic Panel (01/10/18 11:39) Ua Culture If Indicated (01/10/18 11:39) Iv Heplock-Insert (Order) (01/10/18 11:39) Lactated Ringers (Lr 1000 Ml Iv Solution (01/10/18 11:45) Ondansetron Injection (Zofran Injectio (01/10/18 11:45) Blood Culture (01/10/18 12:18) Lactic Acid Analyzer (01/10/18 12:18) Lactated Ringers (Lr 1000 Ml Iv Solution (01/10/18 13:15) Hemoglobin And Hematocrit (01/10/18 14:01) Heparin (Central Iv Flush) (Heparin (Norbert (01/10/18 14:45) Medications Given in ED Current Medications Medications Dose Ordered Sig/Sandra Route Start Time Stop Time Status Last Admin Dose Admin Ondansetron HCl 8 mg ONCE ONCE IVP 01/10/18 11:45 01/10/18 11:46 DC 01/10/18 11:55 8 MG Vital Signs/I&O 01/10/18 11:37 Temp 98.4 Pulse 103 Resp 18 B/P (MAP) 102/66 (78) Pulse Ox 98 Capillary Refill : Less Than 3 Seconds Blood Pressure Mean: 78 Departure Communication (Admissions) 1236-I discussed the labs with the patient. She is very much opposed to hospital admission. I'll discuss with Dr. Ramos from to see what advice he can offer. 1243- transfer center. Dr. Shelton is on-call for Dr. Ramos. Awaiting a callback. [id number]- I spoke with Dr. Shelton. He was advised against giving Neulasta again at this time, blood cultures are pending, since she has been afebrile he would not cover her empirically with antibiotics at this point. He agrees she can be sent home per her wishes and she should return for any worsening. He would not transfuse packed red cells until her hemoglobin is below 7 unless there is a cardiac indication to do so. 1415- patient has finally produced urine after 2 L of LR. Blood pressure 116/ 68. She is ambulatory to the bathroom. I will recheck a hemoglobin and hematocrit to ensure this is not below 7 after hydration. 1431- spoke with Dr. Crane regarding the drop in hemoglobin. Patient does feel much less weak after 2 L of fluids however this has dropped her hemoglobin to 7. We will arrange for an outpatient CBC tomorrow which he will follow up on. If below 7 we will transfuse packed red cells. Patient and are both agreeable with this plan. Impression Primary Impression: Antineoplastic chemotherapy induced pancytopenia Additional Impression: General weakness Disposition: 01 HOME, SELF-CARE Condition: Stable Departure-Patient Inst. Decision time for Depature: 12:46 Referrals: REILLY VALERIO DO (PCP/Family) Primary Care Physician Patient Instructions: No Instuctions Given Add. Discharge Instructions: 1. Return to the hospital tomorrow morning at a time of your convenience to have a repeat CBC drawn. Dr. Crane will follow up on this and if the hemoglobin is below 7 we will arrange transfusion. All discharge instructions reviewed with patient and/or family. Voiced understanding. Copy Copies To 1: REILLY VALERIO PETER J APRN January 10, 2018 11:42
--- OUTSIDE RECORDS SUMMARY | 2018-01-10 11:42 | XMS REPORT | Encounter Summary ---
Author Author [facility] Organization [facility] Address Unknown Phone Unavailable Care Team Providers Care Relay Adjuster Name Role Phone Doctor, Miscellaneous Unavailable Unavailable Mitch Benavides MD PCP Encounter Details Date Type Department Care Team Description 10/13/2017 Orders Only [facility] Cami Aguilar APRN Dysuria (Primary Dx) [facility] - OP Exam [address] [address] [place] [address], [place] [address] [place] [address] [phone] [id number] [phone] Social History Tobacco Use Types Packs/Day Years Used Date Former Smoker Cigarettes 0.25 5 06/13/1966 - 09/02/1969 Smokeless Tobacco: Never Used Alcohol Use Drinks/Week oz/Week Comments No Sex Assigned at Date Recorded Not on file as of this encounter Functional Status Functional Status Response Date of Assessment Does the patient have a hearing impairment: No 09/29/2017 Does the patient have a visual impairment: [...] fileas of this encounter Visit Diagnoses Diagnosis Dysuria - Primary
--- OUTSIDE RECORDS SUMMARY | 2018-01-10 11:42 | XMS REPORT | Encounter Summary ---
Author Author [facility] Organization [facility] Address Unknown Phone Unavailable Care Team Providers Care Delphi Programmer Name Role Phone Doctor, Miscellaneous Unavailable Unavailable Mitch Benavides MD PCP Reason for Visit * Auth/Cert Status Reason Specialty Diagnoses / Referred By Referred To Procedures Contact Contact Diagnoses Malignant neoplasm of central portion of left breast in female, estrogen receptor negative (HCC) Procedures DE MASTECTOMY SIMPLE COMPLETE DE MASTECTOMY SIMPLE COMPLETE DE AXILLARY LYMPHADENECTOMY COMPLETE BIlateral Total Mastectomy DISSECTION LYMPH NODE AXILLARY Encounter Details Date Type Department Care Team Description 10/14/2017 Surgery [facility] Edie Geiger MD LEFT TOTAL MASTECTOMY, Operating Room [address] [facility] [address] [place] [address] MAPPING, [place] [address] [place] [phone] Social History Tobacco Use Types Packs/Day Years Used Date Former Smoker Cigarettes 0.25 5 06/13/1966 - 09/02/1969 Smokeless Tobacco: Never Used Alcohol Use Drinks/Week oz/Week Comments No Sex Assigned at Date Recorded Not on file as of this encounter Last Filed Vital Signs Vital Sign Reading Time Taken Blood Pressure 129/68 10/15/2017 7:34 AM CORPORATE COORDINATOR Pulse 88 10/15/2017 3:00 AM CORPORATE COORDINATOR Temperature 37.1 C (98.7 F) 10/15/2017 7:34 AM CORPORATE COORDINATOR Respiratory Rate - - Oxygen Saturation 97% 10/15/2017 7:34 AM CORPORATE COORDINATOR Inhaled Oxygen - - Concentration Weight 56.4 kg (124 lb 4.8 oz) 10/14/2017 6:39 AM CORPORATE COORDINATOR Height 167.6 cm (5' 6") 10/14/2017 6:39 AM CORPORATE COORDINATOR Body Mass Index 20.06 10/14/2017 6:39 AM CORPORATE COORDINATOR in this encounter Functional Status Functional Status [...] Zenia Bland RN - 10/03/2017 3:28 PM CORPORATE COORDINATOR Formatting of this note may be different [...] surgery. * Pre-Anesthesia Patient Instructions - Zenia Bland, RN - 10/03/2017 3:27 PM CORPORATE COORDINATOR GENERAL INFORMATION Before you come to the hospital Make arrangements for a responsible adult to drive you home and stay with you for 24 hours following surgery. Bath/Shower Instructions Please refer to Pre-Surgery Shower Instruction sheet Leave money, credit cards, jewelry, and any other valuables at home. The [facility] is not responsible for the loss or breakage of personal items. Remove nail kosovan, makeup and all jewelry (including piercings) before coming to the hospital. The morning of your procedure: brush your teeth and tongue do not smoke do not shave the area where you will have surgery What to bring to the hospital ID/ Insurance Card Social Worker School card Official documents for legal guardianship Copy of your Living Will, Advanced Directives, and/or Durable Power of Dishwasher Preparer Small bag with a few personal belongings [...] to cancel your procedure Notify us at [place]: if you need to cancel your procedure if you are going to be late Arrival at the [facility] - Your surgery is scheduled on 10-14-17 at 0730. Please arrive at 0545 [facility] is located at [address] [place] [address]. This is at the northwest corner of [address] Use the main entrance of the hospital, [...] Anita Michael, RN - 10/15/2017 1:02 PM CORPORATE COORDINATOR Pt doing well this morning. Pain is [...] and Dr. Geiger. * Mary Ellen Cosme PA-C - 10/15/2017 8:22 AM CORPORATE COORDINATOR Formatting of this note may be different [...] (10/15 733) BP: 129/68 (10/15 733) Date 10/14/17 07 - 10/15/17 0710/15/17 07 - 10/16/17 07 Shift [id number] 24 Hour Total 4250-2591 9228-8194 24 Hour Total I N T A [...] Coby Rubio, RN - 10/14/2017 8:00 PM CORPORATE COORDINATOR PM ASSESSMENT COMPLETED. AT BEDSIDE. LEFT BREAST [...] Isabel Garcia, RT - 10/14/2017 2:15 PM CORPORATE COORDINATOR Formatting of this note may be different [...] Date: 10/14/2017 Cleaning AC=Airway clearance AM=Aerosolized medication BA=[place] aerosol DB&C=Deep breathe & cough FEV1=Forced expiratory volume in first second) IC=Inspiratory capacity LE=Lung expansion MDI=Metered dose inhaler Neb=Nebulizer O2=Oxygen Oxim=Oximetry PEFR=Peak expiratory flow rate MACHINE LACER=Rapid Response Team * Gloria Valentin RN - 10/14/2017 12:29 PM CORPORATE COORDINATOR Pt admitted to E5 from PACU. Pt [...] Ti Hensley, PHARMD - 10/14/2017 7:46 AM CORPORATE COORDINATOR Pharmacy Note: Patients Own Med The following medications have been identified by pharmacy and placed in the [facility] Patient Own Med Bin for storage: Brinzolaminde Ophthalmic Suspension 1% Carteolol HCl Ophthalmic Solution 1% Briminodine Tartrate Ophthalmic Solution 0.1% Brimatoprost Ophthalmic Solution 0.01% The patient may use their own supply of these medications during this admission. All doses should be administered and documented per hospital policy. in this encounter H&P Notes * Karly Carlton MD - 10/14/2017 7:01 AM CORPORATE COORDINATOR History and Physical Update Note Allergies: Benadryl [...] concerns were addressed. Karly Carlton DO Pager: [phone] * Lidia Agarwal, PROFESSIONAL WRESTLER - 09/29/2017 11:00 AM CORPORATE COORDINATOR Formatting of this note may be different from the original. Name: Callie Dominguez : 1940 AGE: 77 y.o. DATE OF SERVICE: 09/29/2017 Subjective: Reason for Visit: 1. 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 Ultrasound: ---Ultrasound bilateral breast 06/05/17 ([facility]) showed in the left breast , there [...] BI-RADS 4C. 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 [place] Social History Main Topics Smoking status: Former [...] from today. RTC for post-op visit Lidia Agarwal APRN Addendum - Please note that as [...] Edie Geiger MD - 10/14/2017 7:30 AM CORPORATE COORDINATOR Formatting of this note may be different from the original. Operative Report Surgery Date: 10/14/2017 Incision/Procedure Start Time: 735 Incision Close/Procedure End Time: 10:27 AM Procedure Performed: Left modified radical Mastectomy Left arm injection of blue dye for reverse axillary mapping Skin punch biopsies Surgeon(s) and Wrapping Checker(s): Surgeon(s) and Role: * Karly Carlton MD [...] N3, M0) - Signed by Lidia Valentine APRN-HOSEMAN on 06/16/2017 Post-Operative Diagnosis: Post-Op Diagnosis Codes: [...] ECG-SCAN 10/16/2017 Results for this 12:59 PM CORPORATE COORDINATOR procedure are in the results section. LEFT AXILLARY LYMPH NODE 10/14/2017 Malignant neoplasm of DISSECTION 7:30 AM CORPORATE COORDINATOR central portion of left breast in female, estrogen receptor negative (HCC) Special Needs 10/06 PER CHANGE FORM, REVISE PROCEDURE AND CASE LENGTH. BEKA ([id number])10/09 PER CHANGE FORM, ADD MESSAGE TO CASE COMMENTS. BEKA ([id number]) LEFT TOTAL MASTECTOMY, 10/14/2017 Malignant neoplasm of REVERSE LYMPHATIC 7:30 AM CORPORATE COORDINATOR central portion of left MAPPING, SKIN PUNCH breast in female, BIOPSY estrogen receptor negative (HCC) Special Needs 10/06 PER CHANGE FORM, REVISE PROCEDURE AND CASE LENGTH. BEKA ([id number])10/09 PER CHANGE FORM, ADD MESSAGE TO CASE COMMENTS. BEKA ([id number]) in this encounter Results * PATHOLOGY INTEROPERATIVE [...] Value Ref Range Chromosomes Fish DNA SEE SENIOR ELECTRICAL ENGINEER FOR REPORT Probe Specimen Performing Laboratory [facility] [address] [place] [id number] * SURGICAL PATHOLOGY (10/14/2017 8:10 AM) Component Value Ref Range PATHOLOGY REPORT [facility] www[employer] Department of Pathology and Laboratory Medicine [address] [place] [address] Surgical Pathology Office:[phone]:[phone] SURGICAL PATHOLOGY REPORT NAME: CALLIE DOMINGUEZ SURG PATH #: [id number] MR #: [id number] SPECIMEN CLASS: SI BILLING #: [id number] ALT ID #:LOCATION: [facility] DATE OF PROCEDURE: 10/14/2017 AGE:77 SEX: F DATE RECEIVED: 10/14/2017 : 1940TIME RECEIVED:08:10 PHYSICIAN: EDIE GEIGRE MD DATE OF REPORT: 10/20/2017 COPY TO:DATE OF PRINTIN10/21/2017 Procedures/Addenda Addendum Date Ordered: 10/21/2017 Status:Signed Out Date Complete: 10/21/2017 By: Keyona Botello MD, PhD Date Reported: 10/21/2017 Addendum Diagnosis The diagnosis is changed. Addendum Comment Breast Cancer Prognostic Panel by Quantitative Computer-Assisted Image Analysis Testing performed on block Number: E22 Estrogen Receptor (ER):0% Negative Stain Intensity: Not Applicable Progesterone Receptor (DE): 0% Negative Stain Intensity: Not Applicable Her2: 2+ Equivocal Ki-67 68% Testing performed on block Number: F5 Estrogen Receptor (ER):0% Negative Stain Intensity: Not Applicable Progesterone Receptor (DE): 0% Negative Stain Intensity: Not Applicable Her2: 2+ Equivocal Ki-67 87% The original image analysis report is scanned in [employer] under Results Review. Deshaun Estrogen receptor antibody, [...] 3 Mitotic Count (40x objective): 3 Total [place] Score: 9/9 Ductal Carcinoma In-situ (DCIS): Not [...] is inked blue. Axillary dissection attached: No Wood Inspector sections of the specimen are submitted as follows: E1 Wood Inspector sections of the upper outer quadrant. E2 Wood Inspector sections of the lower outer quadrant. E3 Wood Inspector sections of the lower inner quadrant. E4 Wood Inspector sections of the upper inner quadrant. E5 Entire shave of 12:00 to 3:00 skin margin of 2nd fragment of skin. B1Hkxkau shave of 3:00 to 6:00 skin margin of 2nd fragment of skin. A0Eluesn shave of 6:00 to 9:00 skin margin of 2nd fragment of skin. H6Tsccce shave of 9:00 to 12:00 skin margin of 2nd fragment of skin. S0Ulwqvg shave of 12:00 to 3:00 skin margin of 1st fragment of skin. G24Hgbnbe shave 3:00 to 6:00 skin margin of 1st fragment of skin. B41Yznske shave of 6:00 to 9:00 skin margin of 1st fragment of skin. A78Tchoui shave of 9:00 to 12:00 skin margin of 1st fragment of skin. E13-E14 Entire nipple, serially sectioned. Z14Cjvq lateral slice of lesion. H45Lmfs consecutive slice of lesion. E17-E18 Next consecutive [...] palpebral lymph nodes are submitted as follows: J5Bvgsszhn possible lymph nodes. W1Cjjsg possible lymph nodes. F3-F4Four possible lymph nodes [...] identified on the surface of the skin. Wood Inspector sections are submitted as follows: G1-C8Uxuanu shave of superior margin. G3-B9Fmfrgj shave of medial margin. G5-N8Hnaqgg shave of inferior margin. X8Rnbwkcugzbyqt representative personal service sections of known inflammatory area (false margin). G8-X2Xrdsmdlkevmmmb sections of skin. (sld) H. Received fresh [...] for malignancy. Frozen section performed at the [facility], [address] [facility], [place] [address]. Janny Arias MD, PhD If immunohistochemical stains and/or in situ hybridization are cited in this report, the performance characteristics were determined by the Department of Pathology and Laboratory Medicine of the [facility] ([employer]) in compliance [...] of Pathology and Laboratory Medicine of the [facility].It has not been cleared or approved by the FDA.The FDA has determined that such clearance or approval is not necessary. Specimen Performing Laboratory [facility] RESULTS in this encounter Visit Diagnoses Diagnosis Malignant neoplasm of central portion of left breast in female, estrogen receptor negative (HCC) Admitting Diagnoses Diagnosis Malignant neoplasm of central portion of left breast in female, estrogen receptor negative (HCC) Breast cancer (HCC) Administered Medications Medication Order MAR Action Action Date Dose Rate Site atorvastatin (LIPITOR) tablet 10 mg Given 10/14/2017 10 mg 10 mg, Oral, AT BEDTIME DAILY, First 21:05 CORPORATE COORDINATOR dose on Fri10/14/17 at 2100, Until Discontinued bimatoprost(+) (LUMIGAN) 0.03 % Given 10/14/2017 1 drop ophthalmic solution 1 drop 18:23 CORPORATE COORDINATOR 1 drop, Right Eye, DAILY, First dose on Fri10/14/17 at 2000, Until Discontinued, Patient own medication brimonidine(+) (ALPHAGAN P) 0.1 % Given 10/14/2017 1 drop ophthalmic solution 1 drop 18:22 CORPORATE COORDINATOR 1 drop, Right Eye, TWICE DAILY, First dose on Fri10/14/17 at 2000, Until Discontinued, Patient own medication Given 10/15/2017 1 drop 08:16 CORPORATE COORDINATOR brinzolamide(+) (AZOPT) 1 % ophthalmic Given 10/14/2017 1 drop suspension 1 drop 18:17 CORPORATE COORDINATOR 1 drop, Right Eye, TWICE DAILY, First dose on Fri10/14/17 at 2000, Until Discontinued, Patient own medication Given 10/15/2017 1 drop 08:16 CORPORATE COORDINATOR carteolol(+) (OCUPRESS) 1 % ophthalmic Given 10/14/2017 1 drop solution 1 drop 18:23 CORPORATE COORDINATOR 1 drop, Right Eye, TWICE DAILY, First dose on Fri10/14/17 at 2000, Until Discontinued Given 10/15/2017 1 drop 08:16 CORPORATE COORDINATOR dextrose 5 % & 0.45% NaCl with KCl 20 Given - New 10/14/2017 75 mL/hr mEq/L infusion Bag 12:45 CORPORATE COORDINATOR 1,000 mL, Intravenous, at 75 mL/hr, CONTINUOUS, Starting Fri10/14/17 at 1230, Until Fri10/15/17 at 1504, Lock IV fluids after patient tolerating oral intake. diltiazem CD (cardIZEM CD) capsule 180 Given 10/15/2017 180 mg mg 08:14 CORPORATE COORDINATOR 180 mg, Oral, DAILY, First dose on Fri10/15/17 at 0900, Until Discontinued escitalopram oxalate (LEXAPRO) tablet 10 Given 10/14/2017 10 mg mg 21:05 CORPORATE COORDINATOR 10 mg, Oral, AT BEDTIME DAILY, First dose on Fri10/14/17 at 2100, Until Discontinued famotidine (PEPCID) tablet 20 mg Given 10/14/2017 20 mg 20 mg, Oral, AT BEDTIME DAILY, First 18:09 CORPORATE COORDINATOR dose on Fri10/14/17 at 2100, Until Discontinued fentaNYL citrate PF (SUBLIMAZE) Given 10/14/2017 50 mcg injection 50 mcg 11:35 CORPORATE COORDINATOR 50 mcg, Intravenous, EVERY 5 MIN PRN, Starting Fri10/14/17 at 1027, Until Fri10/14/17 at 1207, Pain Injectable, For Pain Score 4-6, Maximum total dose 200 mcg Hold if RR < 10 isosulfan blue (LYMPHAZURIN) injection Given 10/14/2017 2.5 mL INTRA-PROCEDURE MED, Starting Fri 07:38 CORPORATE COORDINATOR 10/14/17 at 0736, Until Fri10/14/17 at 1207, Intra-op lactated ringers infusion Given - New 10/14/2017 20 mL/hr Arm, Right 1,000 mL, Intravenous, at 20 mL/hr, Bag 06:58 CORPORATE COORDINATOR CONTINUOUS, Starting Fri10/14/17 at 0645, Until Fri10/14/17 at 1226, Pre-Op Given - New Bag 10/14/2017 10:24 CORPORATE COORDINATOR LIDOCAINE (PF) 10 MG/ML (1 %) IJ SOLN (Cabinet Override) NOW, 1 dose, Fri10/14/17 at 0645, Created by cabinet override lidocaine PF 1% (10 mg/mL) injection Given 10/14/2017 2 mL 0.1-2 mL 06:58 CORPORATE COORDINATOR 0.1-2 mL, Injection, NEEDED, Starting Fri10/14/17 at 0737, Until Fri10/14/17 at 1207, Other..., for IV insertion, Pre-Op nitrofurantoin monohyd/m-cryst Given 10/14/2017 100 mg (MACROBID) capsule 100 mg 17:32 CORPORATE COORDINATOR 100 mg, Oral, TWICE DAILY, First dose on Fri10/14/17 at 2000, Until Discontinued, Take with food. Given 10/15/2017 100 mg 08:14 CORPORATE COORDINATOR oxyCODONE/acetaminophen (PERCOCET; Given 10/14/2017 1 tablet ENDOCET; ROXICET) 5/325 mg tablet 1-2 21:05 CORPORATE COORDINATOR tablet 1-2 tablet, Oral, EVERY 4 HOURS PRN, Starting Fri10/14/17 at 1226, Until Fri10/15/17 at 1504, Pain PO, TOTAL ACETAMINOPHEN DOSE NOT TO EXCEED 4GM DAILY Given 10/15/2017 1 tablet 03:23 CORPORATE COORDINATOR Given 10/15/2017 1 tablet 12:[address] (PROTONIX) tablet 40 mg Given 10/15/2017 40 mg 40 mg, Oral, TWICE DAILY, First dose on 08:14 CORPORATE COORDINATOR Fri10/14/17 at 2100, Until Discontinued, Do not crush or chew tablet. in this encounter
--- OUTSIDE RECORDS SUMMARY | 2018-01-10 11:42 | XMS REPORT ---
Author Author CYNDI ALAMO Organization [facility] Address [address] [place] [address] Care Team Providers Care Mastic Sprayer Name Role Phone CYNDI ALAMO Unavailable PROBLEMS Unknown Problems ALLERGIES No Information ENCOUNTERS Encounter Location Date Diagnosis [facility] [address] [facility] [id number] [address] May, Encounter for immunization Z23 IMMUNIZATIONS Vaccine Route Administration Date Status FLUARIX QUAD (3 AND UP) 2016 IM Intramuscular Jun 16, 2017 Administered SOCIAL HISTORY Never Assessed REASON FOR VISIT Flu shot CBrumbackRN PLAN OF CARE VITAL SIGNS MEDICATIONS Unknown Medications RESULTS No Results PROCEDURES Procedure Date Ordered Result Body Site FLUARIX QUAD (3 AND UP) 2016Jun 16, 2017 SINGLE IMMUNIZATION ADMIN Jun 16, 2017 INSTRUCTIONS MEDICATIONS ADMINISTERED No Known Medications
--- OUTSIDE RECORDS SUMMARY | 2018-01-10 11:42 | XMS REPORT | Encounter Summary ---
Author Author [facility] Organization [facility] Address Unknown Phone Unavailable Care Team Providers Care Career Development Manager Name Role Phone Doctor, Miscellaneous Unavailable Unavailable Mitch Benavides MD PCP Reason for Visit * Auth/Cert Status Reason Specialty Diagnoses / Referred By Referred To Procedures Contact Contact Diagnoses Malignant neoplasm of central portion of left breast in female, estrogen receptor negative (HCC) Procedures PA MASTECTOMY SIMPLE COMPLETE PA MASTECTOMY SIMPLE COMPLETE PA AXILLARY LYMPHADENECTOMY COMPLETE BIlateral Total Mastectomy DISSECTION LYMPH NODE AXILLARY Encounter Details Date Type Department Care Team Description 10/14/2017 Anesthesia [place] [facility] Rosanna Black CRNA Event Operating Room [address] [facility] [address] [address] [facility] [address] [place] [address] [place] [address] [phone] Anesthesia Record Procedure Name Responsible Anesthesia Start Time Anesthesia Stop Time Anesthesiologist LEFT TOTAL MASTECTOMY, Jacky Ramsey MD 10/14/17 0727 10/14/17 1058 REVERSE LYMPHATIC MAPPING, SKIN PUNCH BIOPSY (Left Breast) Date Time Event Comment 652 AN Equip Check 2017 726 Anes Start 0727 An Start Data 0727 An Induction The patient was reevaluated immediately before moderate or deep sedation use and before anesthesia induction. 0731 An Intubation 0731 Anesthesia Ready 0737 Antibiotic Given 0738 Proc Start 1053 An Extubation 1053 an stop data 1058 Handoff to RN I completed my SBAR handoff to the receiving nurse. 1058 An Stop Meds Name Total midazolam (VERSED) 1 mg/mL injection 2 mg fentaNYL PF (SUBLIMAZE) injection 200 mcg lidocaine (2%) 200 mg/10mL Injection 100 mg syringe propofol (DIPRIVAN) 200 mg/ 20 mL 250 mg injection (VIAL) ondansetron (ZOFRAN) injection 4 mg dexamethasone (DECADRON) 4 mg/mL 10 mg injection ceFAZolin (ANCEF) IVP 2 g 2 g succinylcholine (ANECTINE) injection 100 mg (VIAL) famotidine (PEPCID) injection 20 mg diphenhydrAMINE (BENADRYL) injection 25 mg ePHEDrine injection 20 mg acetaminophen (OFIRMEV) 1,000 mg 1,000 mg injection lactated ringers infusion 1,100 mL * Name O2 N2O Inspired N2O Air Sevoflurane Inspired Sevoflurane * No blood administrations on file. Type Details Placement Removal Portacath 06/18/15 06/18/15 0000 by Elsa Cho RN Wounds 10/14/17; 0806; Left; Breast; Surgical 10/14/17 0806 by Blas, (NOT for Incision STEVEN Goodrich Pressure Injuries) [place] 10/14/17; 1024; Left; Breast; 15 FR; #1 10/14/17 1024 by Natali Odonnell RN Drain [place] 10/14/17; 1024; Left; Breast; 15 FR; #2 10/14/17 1024 by Natali Odonnell RN Drain Peripheral 10/14/17; 0657; RN; R; Lower; Forearm; 10/14/17 0657 by 10/15 1200 by Alec, IV 20 G; 1 (IV started by Malachi Alas RN); Karla Barkley RN Jessica, RN 10/15/17; 1200 ETT 10/14/17; 0731; Mask ventilation not 10/14/17 0731 by 10/14/17 1053 by attempted (0); Direct laryngoscopy, Jaclyn Pinzon, Jaclyn Valle CRNA Rapid sequence, Stylet; Single-Lumen, Cuffed; 7mm; Mac; 3; Oral; 1-Full view of the glottis; 1 insertion attempt; Auscultation, ETCO2 Detector; 21 centimeters; 10/14/17; 1053 in this encounter Social History Tobacco Use Types Packs/Day Years [...] impairment: No 09/29/2017 as of this encounter OR Notes * Anesthesia Postprocedure Evaluation - Jacky Ramsey MD - 10/14/2017 12:22 PM ANALYSIS MGR Post-Anesthesia Evaluation Name: Callie De La Garza : 1940 Age: 77 y.o. Sex: female Procedure Date: 10/14/2017 Procedure: Procedure(s) with comments: LEFT TOTAL MASTECTOMY, REVERSE LYMPHATIC MAPPING, SKIN PUNCH BIOPSY - CASE LENGTH 3 HOURS; , FROZEN SECTION FOR ALL MASTECTOMY MARGINS LEFT AXILLARY LYMPH NODE DISSECTION - Dr. Lugo preference card: AXILLARY LYMPH NODE DISSECTION Surgeon: Surgeon(s): Edie Lugo MD Hangge, Amanda, MD Post-Anesthesia Vitals BP: 114/67 (10/14 1209) Temp: 36.8 C (98.2 F) (10/14 1209) Pulse: 76 (10/140) Respirations: 16 PER MINUTE (10/14 1209) SpO2: 96 % (10/14 1209) O2 Delivery: None (Room Air) (10/14 1209) SpO2 Pulse: 76 (10/14 1210) Height: 167.6 cm (66") (10/14 0639) Post Anesthesia Evaluation Note Evaluation location: pre/post Patient participation: recovered; patient participated in evaluation Level of consciousness: alert Pain score: 4 Pain management: adequate Hydration: normovolemia Temperature: 36.0C - 38.4C Airway patency: adequate Perioperative Events Perioperative events: no Post-op nausea and vomiting: no PONV Postoperative Status Cardiovascular status: hemodynamically stable Respiratory status: spontaneous ventilation Follow-up needed: none Perioperative Events Perioperative Event: No Emergency Case Activation: No * Anesthesia Preprocedure Evaluation - Jacky Ramsey MD - 10/13/2017 1:24 PM ANALYSIS MGR Formatting of this note may be different from the original. Anesthesia Pre-Procedure Evaluation Name: Callie De La Garza : 1940 Age: 77 y.o. Sex: female Procedure Date: 10/14/2017 Procedure: Procedure(s) with comments: LEFT TOTAL MASTECTOMY - CASE LENGTH 3 HOURS; , FROZEN SECTION FOR ALL MASTECTOMY MARGINS LEFT AXILLARY LYMPH NODE DISSECTION - Dr. Lugo preference card: AXILLARY LYMPH NODE DISSECTION Physical Assessment Vital Signs (last filed in past 24 hours): Patient History Allergies Allergen Reactions Benadryl [Diphenhydramine-Zinc Acetate] SEE COMMENTS Pt states makes her restless Epinephrine SEE COMMENTS Pt states makes heart rate high Current Medications Medication Directions atorvastatin (LIPITOR) 10 [...] hours for 7 days. Take with food. ondansetron (ZOFRAN) 4 mg/2 mL soln Administer 4 mL through vein twice weekly. PRN nausea/ vomiting pantoprazole DR (PROTONIX) 40 mg tablet Take 1 tablet by mouth twice daily. prochlorperazine maleate (COMPAZINE) 10 mg tablet Take 1 tablet by mouth every 6 hours as needed for Nausea or Vomiting. Review of Systems/Medical History Patient summary reviewed Nursing notes reviewed Pertinent labs reviewed PONV Screening: Female gender, Postoperative opioids and Non-smoker No history of anesthetic complications No family history of anesthetic complications Airway - negative Pulmonary - negative Cardiovascular Exercise tolerance: >4 METS Beta Papi therapy: No Beta blockers within 24 hours: n/a Hypertension, well controlled Valvular problems/murmurs: MVP Hyperlipidemia Pt denies any h/o IL, CHF or significant arrhythmias. Pt denies any CP or SOB with > 4 metabolic equivalents. GI/Hepatic/Renal Inflammatory bowel disease (UC) Hiatal hernia GERD, well controlled Neuro/Psych - negative Musculoskeletal Arthritis Endocrine/Other Malignancy (breast cancer and h/o ovarian cancer) Physical Exam Airway Findings Mallampati: II TM distance: >3 FB Neck ROM: full Mouth opening: good Airway patency: adequate Dental Findings: Negative Cardiovascular Findings: Negative Rhythm: regular Rate: normal Pulmonary Findings: Negative Breath sounds clear to auscultation. Neurological Findings: Negative Diagnostic Tests Hematology: Lab Results Component Value Date HGB 11.2 09/19/2017 HCT 33.2 09/19/2017 PLTCT 305 09/19/2017 WBC 9.1 09/19/2017 NEUT 70 09/19/2017 ANC 6.30 09/19/2017 LYMPH 60 06/27/2017 ALC 1.70 09/19/2017 ARSALAN 12 09/19/2017 AMC 1.10 09/19/2017 EOSA 0 09/19/2017 ABC 0.00 09/19/2017 BASOPHILS 1 06/27/2017 MCV 104.2 09/19/2017 MCH 35.4 09/19/2017 MCHC 33.9 09/19/2017 MPV 6.5 09/19/2017 RDW 19.9 09/19/2017 General Chemistry: Lab Results Component Value Date NA 135 09/19/2017 K 3.7 09/19/2017 CL 103 09/19/2017 CO2 23 09/19/2017 GAP 9 09/19/2017 BUN 14 09/19/2017 CR 0.77 09/19/2017 GLU 126 09/19/2017 CA 9.5 09/19/2017 ALBUMIN 3.9 09/19/2017 TOTBILI 0.3 09/19/2017 Coagulation: No results found for: PT, PTT, INR Anesthesia Plan ASA score: 3 Plan: general Induction method: intravenous NPO status: acceptable Informed Consent Anesthetic plan and risks discussed with patient. Use of blood products discussed with patient; consented to blood products. Plan discussed with: POLISH COMPOUNDER and surgeon/proceduralist. in this encounter Plan of Treatment Not on fileas of this encounter Visit Diagnoses Not on filein this encounter Administered Medications Medication Order MAR Action Action Date Dose Rate Site acetaminophen (OFIRMEV) injection Given 10/14/2017 1,000 mg Administer over 15 Minutes, 10:08 ANALYSIS MGR INTRA-PROCEDURE MED, Starting 10/14/17 at 1008, Until 10/14/17 at 1058, Pain non-opioid: may be used alone or in combination with opioid analgesia, Anesthesia Intra-op ceFAZolin (ANCEF) IVP 2 g Given 10/14/2017 2 g 2 g, Intravenous, ONCE, 1 dose, Tue 07:37 ANALYSIS MGR 10/14/17 at 0645, Give Pre-Op < 60 minutes prior to first incision. Re-dose every 4 hrs while in procedure (Given in OR). IV PUSH -- RECONSTITUTE each 1 g vial by adding 10 mL 0.9% NACL dexamethasone (DECADRON) injection Given 10/14/2017 10 mg Intravenous, INTRA-PROCEDURE MED, 07:27 ANALYSIS MGR Starting 10/14/17 at 0727, Until 10/14/17 at 1058, Nausea/Vomiting Injectable, Anesthesia Intra-op diphenhydrAMINE (BENADRYL) injection Given 10/14/2017 25 mg INTRA-PROCEDURE MED, Starting Tue 07:27 ANALYSIS MGR 10/14/17 at 0727, Until 10/14/17 at 1058, Anesthesia Intra-op ePHEDrine injection Given 10/14/2017 10 mg INTRA-PROCEDURE MED, Starting Tue 07:56 ANALYSIS MGR 10/14/17 at 0756, Until 10/14/17 at 1058, Anesthesia Intra-op Given 10/14/2017 10 mg 09:20 ANALYSIS MGR famotidine (PEPCID) injection Given 10/14/2017 20 mg INTRA-PROCEDURE MED, Starting Tue 07:27 ANALYSIS MGR 10/14/17 at 0727, Until 10/14/17 at 1058, Indigestion/Heartburn, Anesthesia Intra-op fentaNYL citrate PF (SUBLIMAZE) Given 10/14/2017 100 mcg injection 07:27 ANALYSIS MGR INTRA-PROCEDURE MED, Starting e 10/14/17 at 0727, Until e 10/14/17 at 1058, Pain Injectable, Anesthesia Intra-op Given 10/14/2017 50 mcg 08:10 ANALYSIS MGR Given 10/14/2017 50 mcg 10:38 ANALYSIS MGR lactated ringers infusion Given - New 10/14/2017 20 mL/hr Arm, Right 1,000 mL, Intravenous, at 20 mL/hr, Bag 06:58 ANALYSIS MGR CONTINUOUS, Starting 10/14/17 at 0645, Until Fri10/14/17 at 1226, Pre-Op Given - New Bag 10/14/2017 10:24 ANALYSIS MGR lidocaine (PF) injection Given 10/14/2017 100 mg INTRA-PROCEDURE MED, Starting Fri 07:27 ANALYSIS MGR 10/14/17 at 0727, Until Fri10/14/17 at 1058, Anesthesia Intra-op midazolam (VERSED) injection Given 10/14/2017 2 mg Intravenous, INTRA-PROCEDURE MED, 07:27 ANALYSIS MGR Starting e 10/14/17 at 0727, Until Fri10/14/17 at 1058, Agitation Injectable, Anxiety Injectable, Anesthesia Intra-op ondansetron (ZOFRAN) injection Given 10/14/2017 4 mg Intravenous, INTRA-PROCEDURE MED, 10:14 ANALYSIS MGR Starting e 10/14/17 at 1014, Until Fri10/14/17 at 1058, Nausea/Vomiting Injectable, Anesthesia Intra-op propofol (DIPRIVAN) injection Given 10/14/2017 200 mg INTRA-PROCEDURE MED, Starting Fri 07:27 ANALYSIS MGR 10/14/17 at 0727, Until 10/14/17 at 1058, Anesthesia Intra-op Given 10/14/2017 50 mg 07:47 ANALYSIS MGR succinylcholine (ANECTINE) injection Given 10/14/2017 100 mg INTRA-PROCEDURE MED, Starting Fri 07:27 ANALYSIS MGR 10/14/17 at 0727, Until e 10/14/17 at 1058, Anesthesia Intra-op in this encounter
--- OUTSIDE RECORDS SUMMARY | 2018-01-10 11:42 | XMS REPORT | Encounter Summary ---
Author Author [facility] Organization [facility] Address Unknown Phone Unavailable Care Team Providers Care Conservation Engineer Name Role Phone Doctor, Miscellaneous Unavailable Unavailable Mitch Benavides MD PCP Encounter Details Date Type Department Care Team Description 10/13/2017 Orders Only [facility] Kaye Watson RN [facility] - OP Exam [id number] [address] Social History Tobacco Use Types [...] on fileas of this encounter Results * URINALYSIS DIPSTICK REFLEX TO CULTURE (10/10/2017) Specimen Performing Laboratory [facility] [address] , [address] [place] [address] in this encounter Visit Diagnoses Diagnosis Dysuria
[2018-01-10] MEDS: LACTATED RINGERS 1,000 ML IV SCH ×2 (11:55→13:13)
[2018-01-10] MEDS: ONDANSETRON 4 MG/2 ML (SDV) Z0FRAN IVP ONE (11:55)
[2018-01-10 11:58] LABS: BASOPHILS % (AUTO) 4 % (0-10); EOSINOPHILS % (AUTO) 0 % (0-10); HEMATOCRIT 24 % (35-52); HEMOGLOBIN 8.2 G/DL (11.5-16.0); LYMPHOCYTES # (AUTO) 0.2 X 10^3 (1.0-4.0); LYMPHOCYTES % (AUTO) 71 % (12-44); MEAN CORPUSCULAR HEMOGLOBIN 33 PG (25-34); MEAN CORPUSCULAR HGB CONC 34 G/DL (32-36); MEAN CORPUSCULAR VOLUME 99 FL (80-99); MEAN PLATELET VOLUME 9.2 FL (7.4-10.4); MONOCYTES # (AUTO) 0.1 X 10^3 (0.0-1.0); MONOCYTES % (AUTO) 18 % (0-12); NEUTROPHILS % (AUTO) 7 % (42-75); RED BLOOD COUNT 2.47 10^6/uL (4.35-5.85); RED CELL DISTRIBUTION WIDTH 15.9 % (10.0-14.5)
[2018-01-10 12:00] LABS: PLATELET COUNT 38 10^3/uL (130-400); WHITE BLOOD COUNT 0.3 10^3/uL (4.3-11.0)
[2018-01-10 12:16] LABS: ALANINE AMINOTRANSFERASE 11 U/L (0-55); ALBUMIN 3.9 GM/DL (3.2-4.5); ALKALINE PHOSPHATASE 61 U/L (40-136); BILIRUBIN,TOTAL 1.1 MG/DL (0.1-1.0); BUN/CREATININE RATIO 18; CALCIUM 9.2 MG/DL (8.5-10.1); CARBON DIOXIDE 21 MMOL/L (21-32); CHLORIDE 102 MMOL/L (98-107); CREATININE SERUM 0.78 MG/DL (0.60-1.30); GFR ESTIMATED > 60; GLUCOSE 110 MG/DL (70-105); POTASSIUM 4.2 MMOL/L (3.6-5.0); SODIUM 133 MMOL/L (135-145)
[2018-01-10] MEDS ORDERED: PANT40TA3 (12:30)
[2018-01-10] MEDS ORDERED: BIMA2.5D4 (12:30)
[2018-01-10] MEDS ORDERED: LORA0.5T (12:30)
[2018-01-10 14:13] LABS: BILIRUBIN,URINE NEGATIVE (NEGATIVE); CLARITY,URINE CLEAR; COLOR,URINE YELLOW; GLUCOSE, URINE (UA) NEGATIVE (NEGATIVE); KETONES,URINE NEGATIVE (NEGATIVE); LEUKOCYTE ESTERASE ,URINE NEGATIVE (NEGATIVE); NITRITE,URINE NEGATIVE (NEGATIVE); PH,URINE 7 (5-9); PROTEIN,URINE NEGATIVE (NEGATIVE); UROBILINOGEN,URINE NORMAL (NORMAL)
[2018-01-10 14:25] LABS: BACTERIA,URINE NEGATIVE /HPF; RBC,URINE RARE /HPF; SQUAMOUS EPITHELIAL CELL,UR RARE /HPF; WBC,URINE RARE /HPF
[2018-01-10] MEDS: HEParin (CENTRAL IV FLUSH) 500 UNIT/5 ML SYR IV ONE (14:45)
[2018-01-10 14:46] VITALS: BP 116/65
== END 2018-01-10 14:46 | disposition home or self-care (01) ==
LOC: EDUNIT# 11:28 → ER 11:30
DX: D61.810 Antineoplastic chemotherapy induced pancytopenia (principal); R53.1 Weakness; C50.819 Malignant neoplasm of overlapping sites of unspecified female breast; T45.1X5A Adverse effect of antineoplastic and immunosuppressive drugs, initial encounter; I10 Essential (primary) hypertension; F41.9 Anxiety disorder, unspecified; Z85.41 Personal history of malignant neoplasm of cervix uteri; Z87.891 Personal history of nicotine dependence; Z90.710 Acquired absence of both cervix and uterus
CPT/HCPCS: 36415; 80053; 81000; 83605; 85014; 85018; 85025; 87040; 96361; 96374; 96375

== ENCOUNTER → 2018-01-11 | Outpatient (CLI) | payer MEDICARE, OTHER ==
[~2018-01-11] MED LIST changes: +BIMA2.5D4; +LORA0.5T; +PANT40TA3
[2018-01-11 10:59] LABS: BASOPHILS % (AUTO) 4 % (0-10); EOSINOPHILS % (AUTO) 0 % (0-10); HEMATOCRIT 24 % (35-52); HEMOGLOBIN 7.9 G/DL (11.5-16.0); LYMPHOCYTES # (AUTO) 0.3 X 10^3 (1.0-4.0); LYMPHOCYTES % (AUTO) 56 % (12-44); MEAN CORPUSCULAR HEMOGLOBIN 33 PG (25-34); MEAN CORPUSCULAR HGB CONC 33 G/DL (32-36); MEAN CORPUSCULAR VOLUME 99 FL (80-99); MONOCYTES # (AUTO) 0.1 X 10^3 (0.0-1.0); MONOCYTES % (AUTO) 11 % (0-12); NEUTROPHILS # (AUTO) 0.1 X 10^3 (1.8-7.8); NEUTROPHILS % (AUTO) 29 % (42-75); RED BLOOD COUNT 2.39 10^6/uL (4.35-5.85); RED CELL DISTRIBUTION WIDTH 15.8 % (10.0-14.5)
[2018-01-11 11:03] LABS: PLATELET COUNT 31 10^3/uL (130-400); WHITE BLOOD COUNT 0.5 10^3/uL (4.3-11.0)
== END ==
LOC: LAB 10:43
PROVIDERS: ATTEND Nurse Practitioner Family
DX: D61.818 Other pancytopenia (principal)
CPT/HCPCS: 36415; 85025

== ENCOUNTER 2018-03-03 08:03 | Outpatient (RCR) | payer MEDICARE, OTHER | END 2018-04-27 | disposition home or self-care (01) | LOC: ONC 08:03 | PROVIDERS: ATTEND Radiology Radiation Oncology | DX: Z51.0 Encounter for antineoplastic radiation therapy (principal); C50.412 Malignant neoplasm of upper-outer quadrant of left female breast; C77.3 Secondary and unspecified malignant neoplasm of axilla and upper limb lymph nodes; Z17.1 Estrogen receptor negative status [ER-] | CPT/HCPCS: 77290; 77295; 77300; 77332; 77334; 77336; 77417; 99204 ==

== ENCOUNTER 2018-07-20 10:36 | Outpatient (RCR) | payer MEDICARE, OTHER ==
[~2018-07-20] VITALS: Ht 170.2 cm; Wt 61.2 kg
[2018-07-20] MEDS ORDERED: NS IV 1000 ML 1,000 ML IV ONE (11:00)
[2018-07-20 11:04] VITALS: BP 117/71
== END 2018-10-18 | disposition home or self-care (01) ==
LOC: SDC 10:36 → EDSTATUS 10:36
PROVIDERS: ATTEND Internal Medicine Hematology & Oncology
DX: C50.919 Malignant neoplasm of unspecified site of unspecified female breast (principal); C79.9 Secondary malignant neoplasm of unspecified site
CPT/HCPCS: 96360; 96361

== ENCOUNTER → 2018-07-21 | Outpatient (CLI) | payer MEDICARE, OTHER ==
[2018-07-21 10:43] LABS: ALANINE AMINOTRANSFERASE 57 U/L (0-55); ALBUMIN 3.9 GM/DL (3.2-4.5); ALKALINE PHOSPHATASE 100 U/L (40-136); BILIRUBIN,TOTAL 0.5 MG/DL (0.1-1.0); BUN/CREATININE RATIO 12; CALCIUM 9.4 MG/DL (8.5-10.1); CARBON DIOXIDE 22 MMOL/L (21-32); CHLORIDE 108 MMOL/L (98-107); CREATININE SERUM 0.89 MG/DL (0.60-1.30); GFR ESTIMATED > 60; GLUCOSE 105 MG/DL (70-105); SODIUM 140 MMOL/L (135-145); TOTAL PROTEIN 6.5 GM/DL (6.4-8.2)
== END ==
LOC: LAB 10:03
PROVIDERS: ATTEND Internal Medicine Hematology & Oncology
DX: C50.919 Malignant neoplasm of unspecified site of unspecified female breast (principal)
CPT/HCPCS: 36415; 80053

== ENCOUNTER 2018-10-07 14:40 | Outpatient (CLI) | payer MEDICARE, OTHER ==
[~2018-10-07] VITALS: Ht 170.2 cm; Wt 49.0 kg
[~2018-10-07 14:40] MED LIST changes: +NS IV 1000 ML 1,000 ML ONE
[2018-10-07 14:49] VITALS: BP 141/80
--- NOTE | 2018-10-07 15:12 | NUR ---
CHRISTOS PHARMACIST PHONED DR. MARBELLA AGUAYO OFFICE AND THEY DO NOT WANT NEULASTA INJECTION UNTIL .
[2018-10-07] MEDS ORDERED: NS IV 1000 ML 1,000 ML IV ONE (15:15)
[2018-10-07 16:50] VITALS: BP 141/80
--- NOTE | 2018-10-07 16:50 | NUR ---
PATIENT'S IVF COMPLETED. PORT ACCESS REMOVED. TOLERATED WELL. ACCOMPANIED BY HER . THIS RN ASSISTED PATIENT OUT TO THE CAR VIA WHEELCHAIR.
== END 2018-10-07 16:50 | disposition home or self-care (01) ==
LOC: SDC 14:40
PROVIDERS: ATTEND Internal Medicine Hematology & Oncology
DX: C50.919 Malignant neoplasm of unspecified site of unspecified female breast (principal)
CPT/HCPCS: 96360; 96372